=== PATIENT | female | born 1990 | race Two or more races ===

== ENCOUNTER 2020-04-14 22:11 | Emergency (ER) | payer OTHER, SELFPAY ==
[2020-04-14 22:17] VITALS: BP 105/59; PULSE 67; RESP 16; TEMP 36.7; O2SAT 100; BMI 21.4
--- NOTE | 2020-04-14 22:51 | ED.SKABFB ---
HPI - Skin/Abscess/Foreign Bdy General Chief complaint: Skin/Abscess/Foreign Body Stated complaint: abscess Time Seen by Provider: 04/14/20 22:26 Source: patient Mode of arrival: ambulatory History of Present Illness HPI narrative: 30-year-old female with a past medical history of hypertension presenting to ED complaining of rectal pain since last night. Patient reports believes she has a hemorrhoid, denies history of hemorrhoids. denies fever, nausea/vomiting, diarrhea, constipation, rectal bleeding Related Data Previous Rx's Medication Instructions Recorded hydrocortisone [Anti-Itch (HC)] 1 applic TOPICAL BID PRN #28.35 g 04/14/20 lidocaine 1 applic TOPICAL BID PRN #5 g 04/14/20 Allergies Allergy/AdvReac Type Severity Reaction Status Date / Time No Known Allergies Allergy Verified 04/14/20 22:19 [No Known Allergies*] Review of Systems Review of Systems: Constitutional: No Fever, No Chills Gastrointestinal: No Nausea, No Vomiting, No Diarrhea, No Constipation, No Abdominal pain, +rectal pain Yes all other systems are reviewed and are negative [facility] Past Medical History Attestation statement: The following information was validated with the patient. Source: nursing notes reviewed Medical History (Updated 04/15/20 @ 00:00 by Background Daemon) HTN (hypertension) Social History Social History Advance Directives: No Physical Exam Vital Signs: Vital Signs: Vital Signs Temp Pulse Resp BP Pulse Ox 04/14/20 22:17 98.0 F 67 16 105/59 L 100 Body Mass Index 21.4 Const: General: cooperative and healthy appearing Orientation/consciousness: patient oriented x3 Limitations: no limitations HENMT: Head: Yes normal to inspection Ears: hearing grossly normal bilaterally General nose exam: Normal external nose present Face and sinus: Yes normal facial exam Eyes: General: appearance normal, both eyes and all related structures EOM: EOMs intact bilaterally Neck: Neck: Yes normal visual inspection Resp: Effort & Inspection: normal respiratory effort : Other: + inflamed external hemorrhoid noted at 11 o'clock region. No evidence of thrombosis. Skin: Rashes: no rashes Wounds: no wounds Neuro: General: patient oriented x3 Gait exam (Neuro): Normal gait present Extrem: General: Yes normal to inspection MDM - Skin/Abscess/Foreign Bdy MDM Narrative Medical decision making narrative: Exam consistent with hemorrhoid. No evidence of thrombosis at this time. No active infection. Discharge Plan Discharge Clinical Impression: Hemorrhoid Patient Disposition: Home, Self-Care Instructions: Hemorrhoids (ED) Additional Instructions: you have a hemorrhoid Apply hydrocortisone as prescribed, it is a topical steroid In addition topical lidocaine as a numbing agent, apply as needed Practice sitz baths at home. application of moist heat to the perianal area can lower the internal sphincter and anal canal pressures Patients should ingest 20 to 30 g of insoluble fiber per day Patients should refrain from straining or lingering (eg, reading) on the toilet. Patients should have regular physical exercise. If possible, patients should avoid medications that can cause constipation Patients should also limit their intake of fatty foods and alcohol, which can exacerbate constipation follow-up with your primary care doctor Prescriptions: New hydrocortisone [Anti-Itch (HC)] 1 % ointment 1 applic topical BID PRN (Reason: itching) Qty: 28.35 RF: 0 lidocaine 4 % cream 1 applic topical BID PRN (Reason: pain) Qty: 5 RF: 0 Referrals: Physician,Unknown [Primary Care Provider] - 2 days ( your primary care doctor) Interventions: ED Discharge Assessment Last Done: 04/14/20 23:03 Discharge Date/Time: 04/14/20 23:07
== END 2020-04-14 23:07 | disposition home or self-care (01) ==
PROVIDERS: Emergency Provider Internal Medicine
DX: K64.9 Unspecified hemorrhoids (principal); Z79.899 Other long term (current) drug therapy
CPT/HCPCS: 99283

== ENCOUNTER 2020-08-12 08:36 | Emergency (ER) | payer OTHER, SELFPAY ==
[2020-08-12 08:48] VITALS: BP 155/92; PULSE 90; RESP 18; TEMP 37.1; O2SAT 99; BMI 30.9
--- NOTE | 2020-08-12 10:18 | ED.URI ---
HPI - URI/Sore Throat General Chief Complaint: Upper Respiratory Symptoms Stated Complaint: covid symptoms Time Seen by Provider: 08/12/20 09:14 Source: patient Mode of arrival: ambulatory History of Present Illness HPI Narrative: 30-year-old female with a past medical history of hypertension presenting to the ED complaining of nasal congestion and loss of taste x2 days, requesting COVID-19 testing. Reports boyfriend tested positive for COVID-19 today. Denies cough, chest pain, shortness breath, fever, chills, abdominal pain, diarrhea, travel Related Data Previous Rx's Medication Instructions Recorded hydrocortisone [Anti-Itch (HC)] 1 applic TOPICAL BID PRN #28.35 g 04/14/20 lidocaine 1 applic TOPICAL BID PRN #5 g 04/14/20 Allergies Allergy/AdvReac Type Severity Reaction Status Date / Time No Known Allergies Allergy Verified 08/12/20 08:51 [No Known Allergies*] Review of Systems Review of Systems: Constitutional: No Fever, No Chills ENT/Mouth: No Ear Pain, + Nasal Congestion, No sore throat, No Rhinorrhea Cardiovascular: No Chest Pain, No SOB Respiratory: No Cough, No Sputum, No Wheezing Gastrointestinal: No Nausea, No Vomiting, No Diarrhea Musculoskeletal: No Myalgias Skin: No Skin Lesions, No rash Yes all other systems are reviewed and are negative [facility] [place] Past Medical History Attestation statement: The following information was validated with the patient. Medical History (Updated 08/12/20 @ 11:51 by MADYSON Matthews) HTN (hypertension) Social History Social History Advance Directives: No Advance Directives Information Provided: No Physical Exam Vital Signs: Vital Signs: Last Vital Signs Temp 98.7 F 08/12/20 08:48 Pulse 90 08/12/20 08:48 Resp 18 08/12/20 08:48 BP 155/92 H 08/12/20 08:48 Pulse Ox 99 08/12/20 08:48 Body Mass Index 30.9 Const: General: cooperative, healthy appearing, comfortable and no acute distress Orientation/consciousness: patient oriented x3 Limitations: no limitations HENMT: Head: Yes normal to inspection Ears: hearing grossly normal bilaterally General nose exam: Normal external nose present Face and sinus: Yes normal facial exam Eyes: General: appearance normal, both eyes and all related structures EOM: EOMs intact bilaterally Neck: Neck: Yes normal visual inspection and Yes no meningeal signs Resp: Effort & Inspection: normal respiratory effort Auscultation: clear to auscultation bilaterally, no rales, no rhonchi and no wheezes Cardio: Rate: regular rate Heart sounds: S1 normal heart sound present and S2 normal heart sound present Skin: Rashes: no rashes Wounds: no wounds Neuro: General: patient oriented x3 and no meningeal signs Gait exam (Neuro): Normal gait present Extrem: General: Yes normal to inspection Course Course Course Narrative: -COVID-19 positive MDM - URI/Sore Throat MDM Narrative Medical decision making narrative: On exam VSS, NAD/well-appearing, nontoxic, lungs CTA. Concern for viral syndrome/COVID-19. Low concern for PE/ACS, or pneumonia. Plan: COVID-19 testing Differential Diagnosis Differential diagnosis: Likely upper respiratory infection Medical Records Attestation: I reviewed the patient's medical records. Lab Data Labs: Lab Results 08/12/20 Range/Units 09:34 Coronavirus (PCR) POSITIVE A (Negative) Influenza Type A (PCR) NEGATIVE (Negative) Influenza Type B (PCR) NEGATIVE (Negative) RSV RNA Qual (PCR) NEGATIVE (Negative) Discharge Plan Discharge Clinical Impression: COVID-19 Patient Disposition: Home, Self-Care Instructions: COVID-19 (Coronavirus Disease 2019) (ED) Additional Instructions: Make sure you are staying hydrated at home. Take Tylenol and Motrin for fever, and body aches. Call your doctor At this time you will be okay for discharge. Please plan for self quarantine for up to 14 days. Do not expose yourself to others. You may not go to work Please continue to follow cold instructions and wash your hands frequently. You may take Tylenol as directed on the bottle for pain or fever. CDC Guidelines for home isolation: - Stay away from others - WEAR A MASK if you are sick AND STAY HOME - Cover your mouth and nose with a tissue when you cough or sneeze. Dispose of tissues in a lined trash can and wash your hands immediately with soap and water for at least 20 seconds. If soap and water are not available, clean hands with alcohol-based hand deep fryer assembler that contains at least 60% alcohol. - Clean your hands often with soap and water for at least 20 seconds - Avoid touching your eyes, nose and mouth with unwashed hands - Do not share dishes, drinking glasses, cups, eating utensils, towels, or bedding with other people in your home. After using these items, wash them thoroughly with soap and water or put in the social services aide. - Clean high-touch surfaces in your isolation area ( sick room and bathroom) every day; let a caregiver clean and disinfect high-touch surfaces in other areas of the home. Clean the area or item with soap and water or another detergent if it is dirty. Then, use a household disinfectant. - Limit contact with pets and animals: If you must care for a pet, wash your hands before and after interacting with them) Prescriptions: No Action hydrocortisone [Anti-Itch (HC)] 1 % ointment 1 applic topical BID PRN (Reason: itching) Qty: 28.35 RF: 0 lidocaine 4 % cream 1 applic topical BID PRN (Reason: pain) Qty: 5 RF: 0 Referrals: Physician,Unknown [Primary Care Provider] - 2 days Stand Alone Forms: Work/School Release
[2020-08-12 11:08] LABS: Influenza A PCR NEGATIVE (Negative); Influenza B PCR NEGATIVE (Negative); Resp Syncy Virus RNA Qual PCR NEGATIVE (Negative); SARS COV2 PCR INHOUSE POSITIVE (Negative)
[2020-08-12 12:00] VITALS: RESP 16
== END 2020-08-12 12:18 | disposition home or self-care (01) ==
PROVIDERS: Physician Assistant; Emergency Provider Emergency Medicine Emergency Medical Services
DX: U07.1 COVID-19 (principal); R09.81 Nasal congestion
CPT/HCPCS: 0241U; 36415; 99283

== ENCOUNTER 2020-11-15 22:34 | Emergency (ER) | payer OTHER, SELFPAY ==
--- NOTE | ~2020-11-15 | CT_ITS ---
EXAMINATION: CT ABDOMEN AND PELVIS WITH CONTRAST CLINICAL INFORMATION: Abdominal pain, nausea, vomiting COMPARISON: 01/05/2019 TECHNIQUE: Multidetector volumetric images were obtained from the superior aspect of the liver through the pubic symphysis following administration 85 mL of Omnipaque 350 intravenous contrast. Sagittal and coronal reformatted images were obtained on the technologist's workstation. Oral contrast: No This CT examination was performed using dose optimization techniques as appropriate, variously including the following: *Automated exposure control *Adjustment of mA and/or kV according to patient size (this includes techniques or standardized protocols for targeted exams where dose is matched to indication/reason for exam; i.e. extremities or head) *Use of iterative reconstruction technique DLP: 623 mGy-cm FINDINGS: LUNG BASES: The visualized lung bases demonstrate mild dependent atelectasis. LIVER, GALLBLADDER, AND BILIARY TREE: The liver is normal in size, shape, and attenuation. Small hypodensity in the lateral left hepatic lobe favors a cyst. No biliary ductal dilatation is present. The gallbladder is unremarkable with no evidence of radiopaque gallstones, gallbladder wall thickening, or obvious pericholecystic inflammatory changes. PANCREAS: Unremarkable. SPLEEN: Unremarkable. ADRENAL GLANDS: Unremarkable. KIDNEYS AND URETERS: The kidneys are normal in size, shape, and attenuation. No hydronephrosis, hydroureter, or obstructing calculi seen. No perinephric stranding. BLADDER: Unremarkable. GASTROINTESTINAL TRACT: The small and large bowel are unremarkable. The appendix is unremarkable. No free fluid or free air is seen. ABDOMINAL WALL: No significant hernia is appreciated. LYMPH NODES: Normal. VASCULAR: Unremarkable. PELVIC VISCERA: Unremarkable. OSSEOUS STRUCTURES: Unremarkable. CT/CT abdomen pelvis w con IMPRESSION: No acute findings identified in the abdomen/pelvis.
[2020-11-15 23:03] VITALS: BP 152/84; PULSE 63; RESP 18; TEMP 36.7; O2SAT 100; BMI 26.6
--- NOTE | 2020-11-16 00:35 | ED_ITS ---
HPI - Nausea/Vomiting/Diarrhea General Chief complaint: Headache Stated complaint: vomiting Time Seen by Provider: 11/15/20 23:29 Source: patient Mode of arrival: ambulatory History of Present Illness HPI Narrative: This is a 30-year-old female without significant past medical history who presents with multiple episodes of nausea and vomiting since 5:00 p.m. after patient ate incompletely cooked chocolate cake. Patient states that she has done this many times before it and never had similar symptoms. She does note that her children also had some of the cake, but states that when she vomited the cake was all that was coming out. She denies any associated fevers, chills, back pain, abdominal pain, urinary pain/burning/frequency. She does endorse that she had some left-sided flank pain yesterday but stated that it completely resolved. Patient denies cigarette or marijuana smoking and denies any alcohol use. Related Data Previous Rx's Medication Instructions Recorded hydrocortisone [Anti-Itch (HC)] 1 applic TOPICAL BID PRN #28.35 g 04/14/20 lidocaine 1 applic TOPICAL BID PRN #5 g 04/14/20 Allergies Allergy/AdvReac Type Severity Reaction Status Date / Time No Known Allergies Allergy Verified 11/15/20 23:03 [No Known Allergies*] Review of Systems Review of Systems: Pertinent positives and negatives as stated in HPI 10 point review of systems otherwise negative. PMFSH Past Medical History Source: nursing notes reviewed Medical History HTN (hypertension) Pre-eclampsia Social History Social History Advance Directives: No Advance Directives Information Provided: No Patient : No Physical Exam Vital Signs: Vital Signs: Last Vital Signs Temp 98.1 F 11/15/20 23:03 Pulse 63 11/15/20 23:03 Resp 18 11/15/20 23:03 BP 152/84 H 11/15/20 23:03 Pulse Ox 100 11/15/20 23:03 Body Mass Index 26.6 VITAL SIGNS: Reviewed. GENERAL: Well developed, well nourished, in no acute distress. HEAD: Normocephalic/atraumatic EYES: PERRLA, EOMI OROPHARYNX: no oral lesions noted, posterior pharynx clear NECK: Supple, no adenopathy LUNGS: Normal breath sounds. No adventitious sounds or accessory muscle use. SpO2<100> CARDIOVASCULAR: Regular rate and rhythm without noted murmurs ABDOMEN: Soft, mild tenderness on palpation without rebound, non-distended with bowel sounds. NEUROLOGIC: Alert and oriented x 4. Course Course Course Narrative: 30-year-old female with history and clinical presentation suggestive of food poisoning, cholecystitis, less likely pancreatitis or appendicitis. Review of all investigations negative for acute findings though there is a noted leukocytosis this is felt to be reactive/stress as patient is afebrile and has had complete resolution of her symptoms on re-evaluation. Patient states feeling much better and endorses that she is ready to go home. MDM - Nausea/Vomiting/Diarrhea Lab Data Result diagrams: 11/16/20 01:13 11/16/20 01:13 Labs: Lab Results 11/16/20 11/16/20 11/16/20 Range/Units 01:02 01:02 01:13 WBC 13.7 H (4.8-10.8) X10*3/uL RBC 4.91 (4.20-5.50) X10*6/uL Hgb 11.8 L (12.0-16.0) g/dl Hct 37.3 (37-47) % MCV 76.0 L (80-98) fL MCH 24.0 L (27.0-33.0) pg MCHC 31.6 (31.0-35.0) g/dl RDW 16.1 H (11.0-16.0) % Plt Count 415 H (160-400) X10*3/uL MPV 9.3 L (9.4-12.3) fL Immature Gran % (Auto) 0.2 (0.0-0.4) % Neut % (Auto) 79.0 H (45-73) % Lymph % (Auto) 13.2 L (20-40) % Edwards % (Auto) 5.8 (2-11) % Eos % (Auto) 1.7 (0-4) % Baso % (Auto) 0.1 (0-2) % Lymph # (Auto) 1.8 (1.2-4.9) X10*3/uL Edwards # (Auto) 0.8 (0.1-1.2) X10*3/uL Eos # (Auto) 0.2 (0.0-0.4) X10*3/uL Baso # (Auto) 0.0 (0.0-0.2) X10*3/uL Abs Immat Gran (auto) 0.03 (0.00-0.03) X10*3/uL Absolute Neuts (auto) 10.8 H (2.0-8.3) X10*3/uL Absolute Nucleated RBC 0.000 (0.0-0.012) X10*3/uL Nucleated RBC % (auto) 0.0 (0.0-0.2) /100WBC Sodium (135-145) mmol/L Potassium (3.3-5.1) mmol/L Chloride (96-108) mmol/L Carbon Dioxide (22-29) mmol/L Anion Gap (12-20) BUN (9-16) mg/dL Creatinine (0.5-1.4) mg/dL Estim Creat Clear Calc Estimated GFR Random Glucose (60-115) mg/dL Calcium (8.4-10.2) mg/dL Total Bilirubin (0.0-1.0) mg/dL AST (5-31) U/L ALT (0-31) U/L Alkaline Phosphatase (39-117) U/L Total Protein (6.5-8.0) g/dL Albumin (3.5-5.0) g/dL Urine Color YELLOW Urine Appearance HAZY Urine pH 7.0 (5.0-8.0) Ur Specific Milton 1.015 (1.005-1.025) Urine Protein 1+ H (NEG-TRACE) MG/DL Urine Glucose (UA) NEG (NEG) MG/DL Urine Ketones NEG (NEG) MG/DL Urine Blood NEG (NEG) Urine Nitrite NEG (NEG) Ur Leukocyte Esterase NEG (NEG) Urine RBC 0-2 (0) /HPF Urine WBC 5-9 H (0-4) /HPF Ur Squamous Epith Cells 2+ /LPF Urine Bacteria 3+ /LPF Urine Mucus 1+ /LPF Urine Test NEGATIVE (NEGATIVE) 11/16/20 Range/Units 01:13 WBC (4.8-10.8) X10*3/uL RBC (4.20-5.50) X10*6/uL Hgb (12.0-16.0) g/dl Hct (37-47) % MCV (80-98) fL MCH (27.0-33.0) pg MCHC (31.0-35.0) g/dl RDW (11.0-16.0) % Plt Count (160-400) X10*3/uL MPV (9.4-12.3) fL Immature Gran % (Auto) (0.0-0.4) % Neut % (Auto) (45-73) % Lymph % (Auto) (20-40) % Edwards % (Auto) (2-11) % Eos % (Auto) (0-4) % Baso % (Auto) (0-2) % Lymph # (Auto) (1.2-4.9) X10*3/uL Edwards # (Auto) (0.1-1.2) X10*3/uL Eos # (Auto) (0.0-0.4) X10*3/uL Baso # (Auto) (0.0-0.2) X10*3/uL Abs Immat Gran (auto) (0.00-0.03) X10*3/uL Absolute Neuts (auto) (2.0-8.3) X10*3/uL Absolute Nucleated RBC (0.0-0.012) X10*3/uL Nucleated RBC % (auto) (0.0-0.2) /100WBC Sodium 140 (135-145) mmol/L Potassium 4.7 (3.3-5.1) mmol/L Chloride 105 (96-108) mmol/L Carbon Dioxide 27 (22-29) mmol/L Anion Gap 13 (12-20) BUN 9 (9-16) mg/dL Creatinine 0.82 (0.5-1.4) mg/dL Estim Creat Clear Calc 97.3 Estimated GFR > 60 Random Glucose 97 (60-115) mg/dL Calcium 9.7 (8.4-10.2) mg/dL Total Bilirubin 0.3 (0.0-1.0) mg/dL AST 23 (5-31) U/L ALT 41 H (0-31) U/L Alkaline Phosphatase 121 H (39-117) U/L Total Protein 7.6 (6.5-8.0) g/dL Albumin 4.5 (3.5-5.0) g/dL Urine Color Urine Appearance Urine pH (5.0-8.0) Ur Specific Milton (1.005-1.025) Urine Protein (NEG-TRACE) MG/DL Urine Glucose (UA) (NEG) MG/DL Urine Ketones (NEG) MG/DL Urine Blood (NEG) Urine Nitrite (NEG) Ur Leukocyte Esterase (NEG) Urine RBC (0) /HPF Urine WBC (0-4) /HPF Ur Squamous Epith Cells /LPF Urine Bacteria /LPF Urine Mucus /LPF Urine Test (NEGATIVE) Discharge Plan Discharge Clinical Impression: Food poisoning Patient Disposition: Home, Self-Care Instructions: Food Poisoning (ED) Additional Instructions: 1. Continue stay well hydrated especially with water. 2. Follow-up with your primary care provider in the next 2-3 days for re- evaluation. Return to the ER for any acute worsening of your symptoms. Prescriptions: No Action hydrocortisone [Anti-Itch (HC)] 1 % ointment 1 applic topical BID PRN (Reason: itching) Qty: 28.35 RF: 0 lidocaine 4 % cream 1 applic topical BID PRN (Reason: pain) Qty: 5 RF: 0 Referrals: Harmony Caceres MD [Primary Care Provider] - 2 days
[2020-11-16 01:17] LABS: Basophils Percent Auto 0.1 % (0-2); Eosinophils Absolute Auto 0.2 X10*3/uL (0.0-0.4); Eosinophils Percent Auto 1.7 % (0-4); Hematocrit 37.3 % (37-47); Hemoglobin 11.8 g/dl (12.0-16.0); Imm Gran Abs Auto 0.03 X10*3/uL (0.00-0.03); Imm Gran Pct Auto 0.2 % (0.0-0.4); Lymphocytes Absolute Auto 1.8 X10*3/uL (1.2-4.9); Lymphocytes Percent Auto 13.2 % (20-40); MANUAL DIFF FLAG NO; Mean Corpuscular HGB Conc 31.6 g/dl (31.0-35.0); Mean Platelet Volume 9.3 fL (9.4-12.3); Monocytes Absolute Auto 0.8 X10*3/uL (0.1-1.2); Monocytes Percent Auto 5.8 % (2-11); Neutrophils Absolute Auto 10.8 X10*3/uL (2.0-8.3); Platelet Count 415 X10*3/uL (160-400); Red Blood Count 4.91 X10*6/uL (4.20-5.50); Red Cell Distribution Width 16.1 % (11.0-16.0); White Blood Count 13.7 X10*3/uL (4.8-10.8)
[2020-11-16 01:20] VITALS: BP 123/78; PULSE 89; RESP 20; TEMP 37.2; O2SAT 98
[2020-11-16 01:22] LABS: Glucose Urine UA NEG (NEG); Leukocyte Esterase Urine NEG (NEG); Nitrite Urine NEG (NEG); Specific Gravity - Urine 1.015 (1.005-1.025); Urine Blood NEG (NEG); Urine Ketones NEG (NEG); Urine Protein 1+ MG/DL (NEG-TRACE)
[2020-11-16] MEDS: ondansetron HCL 4 MG/2 ML VIAL IVPUSH (01:23)
[2020-11-16] MEDS: 0.9 % Sodium Chloride 1,000 ML 999 ML IV (01:23)
[2020-11-16 01:24] LABS: Appearance Urine HAZY; Color Urine YELLOW
[2020-11-16 01:33] LABS: Bacteria Urine 3+ /LPF; Mucus Urine 1+ /LPF; RBC Urine 0-2 /HPF (0); Squamous Epithelial Cell Urine 2+ /LPF; UACC CULT YES; UPreg QC Valid YES; Urine Pregnancy NEGATIVE (NEGATIVE)
[2020-11-16 01:56] LABS: Alanine Aminotransferase 41 U/L (0-31); Albumin Level 4.5 g/dL (3.5-5.0); Alkaline Phosphatase 121 U/L (39-117); Anion Gap 13 (12-20); Aspartate Amino Transferase 23 U/L (5-31); Bilirubin Total 0.3 mg/dL (0.0-1.0); Blood Urea Nitrogen 9 mg/dL (9-16); Calcium 9.7 mg/dL (8.4-10.2); Carbon Dioxide 27 mmol/L (22-29); Chloride 105 mmol/L (96-108); Creatinine Clr Calc Pharmacy 97.3; Estimated Glomerular Filt Rate > 60; Glucose Random 97 mg/dL (60-115); Potassium 4.7 mmol/L (3.3-5.1); Sodium 140 mmol/L (135-145); Total Protein 7.6 g/dL (6.5-8.0)
[2020-11-16] MEDS: iohexoL 350 MG/ML 100 ML INFUS..BTL 85 ML IV (03:31)
== END 2020-11-16 05:00 | disposition home or self-care (01) ==
PROVIDERS: Emergency Provider Student in an Organized Health Care Education/Training Program; PCP Internal Medicine
DX: A05.9 Bacterial foodborne intoxication, unspecified (principal); R11.2 Nausea with vomiting, unspecified; I10 Essential (primary) hypertension; Z86.16 Personal history of COVID-19
CPT/HCPCS: 36415; 74177; 80053; 81001; 81025; 85025; 87086; 87088; 87186; 96361; 96374; 99283; 99284; J2405; Q9967

== ENCOUNTER 2021-04-04 21:32 | Emergency (ER) | payer OTHER, SELFPAY ==
[2021-04-04 22:14] VITALS: BP 118/77; PULSE 59; RESP 16; TEMP 37.3; O2SAT 98; BMI 31.7
--- NOTE | 2021-04-04 22:51 | ED_ITS ---
HPI - Dental/Oral General Chief complaint: Dental/Oral Stated complaint: Dental Pain Time Seen by Provider: 04/04/21 22:44 Source: patient Mode of arrival: ambulatory Limitations: no limitations History of Present Illness HPI Narrative: Patient comes emergency room complaining of dental pain. Patient states that yesterday she had tooth extraction in the left maxillary side. Patient states that she was prescribed 800 mg of ibuprofen and 500 mg of Tylenol. Patient is at her max dose today. Patient is also currently taking amoxicillin which was prescribed by her dentist. Patient states she cannot take the pain. Patient denies fever, chills Related Data Previous Rx's Medication Instructions Recorded hydrocortisone 1 % topical 1 applic TOPICAL BID PRN #28.35 g 04/14/20 ointment (Anti-Itch (hydrocortisone)) lidocaine 4 % topical cream 1 applic TOPICAL BID PRN #5 g 04/14/20 nitrofurantoin 100 mg PO Q12H 5 Days #10 cap 11/20/20 monohydrate/macrocrystals 100 mg capsule (Macrobid) oxycodone 5 mg tablet 5 mg PO TID PRN #7 tab 04/04/21 Allergies Allergy/AdvReac Type Severity Reaction Status Date / Time No Known Allergies Allergy Verified 11/15/20 23:03 [No Known Allergies*] Review of Systems Review of Systems: Constitutional : No Weight loss, No Fever, No Chills, No Night Sweats, No Fatigue, No Malaise ENT/Mouth : No Hearing loss, No Ear Pain, No Nasal Congestion, No Sinus Pain, No Hoarseness, No sore throat, No Rhinorrhea, No Swallowing Difficulty, complaining of dental pain of other side left side Eyes: No Eye Pain, No Swelling, No Redness, No Foreign Body, No Discharge, No Vision Changes Cardiovascular : No Chest Pain, No SOB, No Dyspnea on Exertion, No Orthopnea, No Edema, No Palpitations Respiratory : No Cough, No Sputum, No Wheezing, No Smoke Exposure, No Dyspnea Gastrointestinal : No Nausea, No Vomiting, No Diarrhea, No Constipation, No abdominal Pain, No Hematochezia, No Melena Genitourinary : no irregular bleeding, No Dysuria, No Urinary Frequency, No Hematuria, No Urinary Incontinence, No Urgency, No Flank Pain, No Urinary Flow Changes, No Hesitancy Musculoskeletal : No joint pain, No Myalgias, No Joint Swelling Skin : No Skin Lesions, No rash Neuro : No Weakness, No Numbness, No Paresthesias, No Loss of Consciousness, No Dizziness, No Headache Psych : No Anxiety/Panic, No Depression, No SI/HI/AH/VH, No Social Issues, Heme/Lymph: No Bruising, No Bleeding,No Lymphadenopathy Endocrine : No Polyuria, No Polydipsia, No Temperature Intolerance [facility] Past Medical History Medical History HTN (hypertension) Pre-eclampsia Social History Social History Advance Directives: No Advance Directives Information Provided: No Patient : No Physical Exam Vital Signs: Vital Signs: Last Vital Signs Temp 99.1 F 04/04/21 22:14 Pulse 59 04/04/21 22:14 Resp 16 04/04/21 22:14 BP 118/77 04/04/21 22:14 Pulse Ox 98 04/04/21 22:14 Body Mass Index 31.7 Const: Other: Appearance: Alert. Oriented X3. No acute distress. Eyes: Pupils equal, round and reactive to light. ENT: Pharynx normal. Patient does not have dry sockets, no pus drainage, no abscesses, patient does have overall poor dentition Neck: Normal inspection. Neck supple. No lymph nodes noted. No crepitus CVS: Normal heart rate and rhythm. Pulses normal. Normal S1 and S2 Respiratory: No respiratory distress. Breath sounds normal. No Wheezing. No rales Abdomen: Soft and nontender. No rigidity. No distention. good BS x4 Skin: Skin warm and dry. Normal skin color. Normal skin turgor. Extremities: No lower extremity edema. No lower extremity edema. No Lacerations. No Rash Neuro: Oriented X 3. No motor deficit. No sensory deficit. Moving all extermities. No slurred speech. Course Course Course Narrative: Patient is already on antibiotics, patient already had maximum dose of ibuprofen, this time, I offered to the patient stronger pain medication, since she has had high dose of ibuprofen, will not be giving Toradol. Patient instructed to keep taking her antibiotics as prescribed, pain medications and to the patient's pharmacy Discharge Plan Discharge Clinical Impression: Pain, dental Patient Disposition: Home, Self-Care Instructions: Toothache (ED) Additional Instructions: Please follow-up with your primary care physician tomorrow. If you have any worsening or new symptoms, please return to the emergency room or call 911 Prescriptions: New oxycodone 5 mg tablet 5 mg PO TID PRN (Reason: pain) Qty: 7 RF: 0 No Action nitrofurantoin monohyd/m-cryst [Macrobid] 100 mg capsule 100 mg PO Q12H 5 Days Qty: 10 RF: 0 hydrocortisone [Anti-Itch (HC)] 1 % ointment 1 applic topical BID PRN (Reason: itching) Qty: 28.35 RF: 0 lidocaine 4 % cream 1 applic topical BID PRN (Reason: pain) Qty: 5 RF: 0
[2021-04-04] MEDS: oxyCODONE HCl Immed Release 5 MG TABLET PO (22:58)
[2021-04-04 23:28] VITALS: BP 116/78; PULSE 68; RESP 16; O2SAT 99
== END 2021-04-04 23:31 | disposition home or self-care (01) ==
PROVIDERS: Emergency Provider Emergency Medicine; PCP Internal Medicine
DX: K08.89 Other specified disorders of teeth and supporting structures (principal); Z79.899 Other long term (current) drug therapy
CPT/HCPCS: 99283

== ENCOUNTER 2021-04-15 17:39 | Emergency (ER) | payer OTHER, SELFPAY ==
[2021-04-15 18:04] VITALS: BP 144/76; PULSE 59; RESP 17; TEMP 37; O2SAT 100; BMI 30.4
--- NOTE | 2021-04-15 18:04 | ED.DENTAL ---
HPI - Dental/Oral General Chief complaint: Dental/Oral Stated complaint: dental pain Time Seen by Provider: 04/15/21 17:52 Source: patient Mode of arrival: ambulatory Limitations: no limitations History of Present Illness HPI Narrative: 31-year-old female came in for evaluation of mouth pain. Patient status post 6 teeth extraction today by her dentist as a part of extracting all of her teeth, dentist prescribed 800 mg of ibuprofen which is not relieving the pain for the patient, patient also not receiving antibiotics post extraction. No other complaints. Related Data Previous Rx's Medication Instructions Recorded hydrocortisone 1 % topical 1 applic TOPICAL BID PRN #28.35 g 04/14/20 ointment (Anti-Itch (hydrocortisone)) lidocaine 4 % topical cream 1 applic TOPICAL BID PRN #5 g 04/14/20 nitrofurantoin 100 mg PO Q12H 5 Days #10 cap 11/20/20 monohydrate/macrocrystals 100 mg capsule (Macrobid) oxycodone 5 mg tablet 5 mg PO TID PRN #7 tab 04/04/21 amoxicillin 500 mg capsule 500 mg PO BID #14 cap 04/15/21 oxycodone-acetaminophen 5 mg-325 1 tab PO TID PRN #5 tab 04/15/21 mg tablet (Percocet) Allergies Allergy/AdvReac Type Severity Reaction Status Date / Time No Known Allergies Allergy Verified 11/15/20 23:03 [No Known Allergies*] Review of Systems Review of Systems: All other systems are reviewed and are negative Constitutional: Reports as per HPI and Reports no additional constitutional complaints Eyes: Reports as per HPI and Reports no additional eye complaints Reports system reviewed and no additional complaints, except as documented Cardiovascular: Reports as per HPI and Reports no additional cardiovascular complaints Respiratory: Reports as per HPI and Reports no additional respiratory complaints Gastrointestinal: Reports as per HPI and Reports no additional gastrointestinal complaints Genitourinary: Reports no additional female genitourinary complaints Musculoskeletal: Reports no additional musculoskeletal complaints Skin/Breast: Reports system reviewed and no additional complaints, except as docu Psychiatric: Reports no additional psychiatric complaints Endocrine: Reports no additional endocrine complaints Hematologic/Lymphatic: Reports no additional hematologic/lymphatic complaints Allergic/Immunologic: Reports no additional allergic/immunologic complaints Reports system reviewed and no additional complaints, except as documented and Reports Abnormal speech present [facility] Past Medical History Medical History HTN (hypertension) Pre-eclampsia Social History Social History Advance Directives: No Advance Directives Information Provided: No Patient : No Physical Exam Vital Signs: Vital Signs: Vital signs have been reviewed as appeared to be correct. Blood pressure normal. Heart rate normal. Respiration rate normal. Temperature normal. Oxygen saturation normal. Appearance: Alert. Oriented X3. No acute distress. Head: Normal external exam. Normocephalic. Atraumatic. No Falk signs noted. No raccoon eyes noted. Dental exam: Multiple dental extraction, no gum swelling, no fluctuation. Gum is tender to touch. Eyes: PERRLA. EOMI. Conjunctiva and sclera normal. Eyelids normal. ENT: TM's Normal. Pharynx normal. Uvula midline. Moist mucous membranes. No trismus noted. No drooling noted. No muffled voice noted. Neck: Normal inspection. Neck supple. FROM. No adenopathy. Thyroid Normal. No meningeal signs. No neck mass noted. CVS: Normal heart rate and rhythm. Heart sound normal. No murmurs noted. Pulses normal throughout. Respiratory: No respiratory distress. Painless inspiration. Breath sounds normal. No wheezes/rales/rhonchi noted. Chest nontender. No accessory muscle usage noted or decreased air movement noted. Abdomen: Soft and nontender. Bowel sounds normal in all 4 quadrants. No distention noted. No organomegaly noted. No visible injury noted. Back: No CVA tenderness. Full range of motion noted. Skin: Skin warm and dry. Normal skin color. Normal skin turgor. No rashes/lesions/lacerations noted. Extremities: No lower extremity edema. Extremities exhibit normal range of motion. Extremities nontender. Neuro: Oriented X 3. Cranial nerve exam: II-XII are grossly intact No motor deficit. No sensory deficit. Reflexes normal. Course Course Course Narrative: Will start the patient on amoxicillin/stronger analgesia/follow-up with her dentist. Discharge Plan Discharge Clinical Impression: Pain, dental Patient Disposition: Home, Self-Care Instructions: Toothache (ED) Additional Instructions: Follow-up with your dentist in 1-2 days. Prescriptions: New amoxicillin 500 mg capsule 500 mg PO BID Qty: 14 RF: 0 oxycodone-acetaminophen [Percocet] 5-325 mg tablet 1 tab PO TID PRN (Reason: pain) Qty: 5 RF: 0 No Action nitrofurantoin monohyd/m-cryst [Macrobid] 100 mg capsule 100 mg PO Q12H 5 Days Qty: 10 RF: 0 hydrocortisone [Anti-Itch (HC)] 1 % ointment 1 applic topical BID PRN (Reason: itching) Qty: 28.35 RF: 0 lidocaine 4 % cream 1 applic topical BID PRN (Reason: pain) Qty: 5 RF: 0 oxycodone 5 mg tablet 5 mg PO TID PRN (Reason: pain) Qty: 7 RF: 0 Referrals: Harmony Caceres MD [Primary Care Provider] - 2 days
[2021-04-15] MEDS: Amoxicillin 500 MG CAPSULE PO (18:34)
[2021-04-15] MEDS: oxyCODONE HCl Immed Release 5 MG TABLET PO (18:34)
== END 2021-04-15 19:12 | disposition home or self-care (01) ==
PROVIDERS: Emergency Provider Emergency Medicine; PCP Internal Medicine
DX: K08.89 Other specified disorders of teeth and supporting structures (principal); I10 Essential (primary) hypertension; Z98.890 Other specified postprocedural states
CPT/HCPCS: 99283

== ENCOUNTER 2021-06-27 16:35 | Emergency (ER) | payer OTHER, SELFPAY ==
[2021-06-27 18:26] VITALS: BP 146/72; PULSE 80; RESP 18; TEMP 36.8; O2SAT 100; BMI 20.5
[2021-06-27] MEDS: Ondansetron ODT 4 MG TAB.RAPDIS TRANSLINGU (18:30)
[2021-06-27 18:53] LABS: Hematocrit 38.1 % (37.0-47.0); Hemoglobin 12.1 g/dl (12.0-16.0); Mean Corpuscular HGB Conc 31.8 g/dl (31.0-35.0); Mean Corpuscular Hemoglobin 24.1 pg (27.0-33.0); Mean Corpuscular Volume 75.9 fL (80.0-98.0); Mean Platelet Volume 9.7 fL (9.4-12.3); Platelet Count 348 X10*3/uL (160-400); Red Blood Count 5.02 X10*6/uL (4.20-5.50); White Blood Count 9.4 X10*3/uL (4.8-10.8)
[2021-06-27 19:02] LABS: Appearance Urine HAZY; Color Urine YELLOW; Glucose Urine UA NEG (NEG); Leukocyte Esterase Urine NEG (NEG); Nitrite Urine POS (NEG); Specific Gravity - Urine >= 1.030 (1.005-1.025); UACC Culture Trigger YES; UPreg QC Valid YES; Urine Blood NEG (NEG); Urine Ketones >=80 MG/DL (NEG); Urine Pregnancy NEGATIVE (NEGATIVE); Urine Protein TRACE MG/DL (NEG-TRACE)
[2021-06-27 19:05] LABS: Anion Gap 14 (12-20); Blood Urea Nitrogen 12 mg/dL (9-16); Calcium 9.7 mg/dL (8.4-10.2); Carbon Dioxide 27 mmol/L (22-29); Chloride 104 mmol/L (96-108); Creatinine Clr Calc Pharmacy 76.8; Estimated Glomerular Filt Rate > 60; Glucose Random 102 mg/dL (60-115); Sodium 141 mmol/L (135-145)
[2021-06-27 19:08] LABS: COVID-19 Test Negative (Negative)
[2021-06-27 19:46] LABS: Bacteria Urine 3+ /LPF; Mucus Urine 1+ /LPF; Squamous Epithelial Cell Urine 1+ /LPF
== END 2021-06-27 20:34 | disposition left against medical advice (07) ==
PROVIDERS: Emergency Provider Emergency Medicine; PCP Internal Medicine
DX: R11.2 Nausea with vomiting, unspecified (principal); R51.9 Headache, unspecified; Z20.822 Contact with and (suspected) exposure to COVID-19; I10 Essential (primary) hypertension
CPT/HCPCS: 80048; 81001; 81003; 81025; 85027; 87086; 87088; 87186; 87635; 99283

== ENCOUNTER 2022-02-17 11:40 | Emergency (ER) | payer OTHER, SELFPAY ==
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
[2022-02-17 11:51] VITALS: BP 114/76; PULSE 67; RESP 18; TEMP 36.8; O2SAT 98; BMI 21.4
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
[2022-02-17 13:39] VITALS: BP 115/57; PULSE 53; RESP 15; TEMP 36.8
[2022-02-17 13:46] LABS: UPreg QC Valid YES; Urine Pregnancy NEGATIVE (NEGATIVE)
== END 2022-02-17 15:15 | disposition home or self-care (01) ==
PROVIDERS: Nurse Practitioner Family; Emergency Provider Emergency Medicine
DX: Z04.1 Encounter for examination and observation following transport accident (principal); R51.9 Headache, unspecified; M54.2 Cervicalgia; R10.9 Unspecified abdominal pain
CPT/HCPCS: 70450; 72125; 81025; 99283; 99284

== ENCOUNTER 2023-03-04 19:20 | Emergency (ER) | payer OTHER, SELFPAY ==
[2023-03-04 19:40] VITALS: BP 140/71; BP 182/80; PULSE 62; PULSE 76; RESP 18; TEMP 36.8; O2SAT 100; BMI 29.5
[2023-03-04] MEDS: ondansetron HCL 4 MG/2 ML VIAL IVPUSH (20:16)
[2023-03-04 20:17] LABS: MANUAL DIFF FLAG NO
[2023-03-04 20:35] LABS: Basophils Percent Auto 0.3 % (0-2); Eosinophils Percent Auto 0.1 % (0-4); Hematocrit 38.5 % (37.0-47.0); Hemoglobin 12.3 g/dl (12.0-16.0); Imm Gran Abs Auto 0.03 X10*3/uL (0.00-0.03); Imm Gran Pct Auto 0.3 % (0.0-0.4); Lymphocytes Absolute Auto 1.2 X10*3/uL (1.2-4.9); Lymphocytes Percent Auto 11.6 % (20-40); Mean Corpuscular HGB Conc 31.9 g/dl (31.0-35.0); Mean Corpuscular Hemoglobin 25.4 pg (27.0-33.0); Mean Corpuscular Volume 79.4 fL (80.0-98.0); Mean Platelet Volume 9.9 fL (9.4-12.3); Monocytes Absolute Auto 0.4 X10*3/uL (0.1-1.2); Monocytes Percent Auto 3.5 % (2-11); Neutrophils Absolute Auto 8.7 x10*3/uL (2.0-8.3); Neutrophils Percent Auto 84.2 % (45-73); Platelet Count 357 X10*3/uL (160-400); Red Blood Count 4.85 X10*6/uL (4.20-5.50); Red Cell Distribution Width 14.1 % (11.0-16.0); White Blood Count 10.3 X10*3/uL (4.8-10.8)
[2023-03-04 20:39] LABS: Alanine Aminotransferase 28 U/L (0-31); Albumin Level 4.2 g/dL (3.5-5.0); Alkaline Phosphatase 91 U/L (39-117); Anion Gap 14 (12-20); Aspartate Amino Transferase 23 U/L (5-31); Bilirubin Direct 0.1 mg/dL (0.0-0.5); Bilirubin Total 0.3 mg/dL (0.0-1.0); Blood Urea Nitrogen 7 mg/dL (9-16); Calcium 9.8 mg/dL (8.4-10.2); Carbon Dioxide 25 mmol/L (22-29); Chloride 103 mmol/L (96-108); Creatinine Clr Calc Pharmacy 111.7; Estimated Glomerular Filt Rate > 60; Glucose Random 115 mg/dL (60-115); Lipase 21 U/L (8-78); Potassium 4.2 mmol/L (3.3-5.1); Sodium 138 mmol/L (135-145); Total Protein 7.5 g/dL (6.5-8.0)
--- NOTE | 2023-03-04 21:19 | ED.GENADULT ---
HPI - General Adult General Chief complaint: Abdominal Pain Stated complaint: abd pain, vomiting Time Seen by Provider: 03/04/23 21:12 Source: patient Mode of arrival: ambulatory Limitations: no limitations History of Present Illness HPI narrative: Patient comes to the emergency room complaining of headache, photophobia, nausea vomiting and abdominal cramping. Patient states it has been about a week since the headache started, nausea vomiting started yesterday. Patient states that she might be but does not know. Patient denies any vaginal bleeding or spotting. Related Data Previous Rx's Medication Instructions Recorded hydrocortisone 1 % topical 1 applic topical BID PRN itching 04/14/20 ointment (Anti-Itch #28.35 grams (hydrocortisone)) lidocaine 4 % topical cream 1 applic topical BID PRN pain #5 04/14/20 grams nitrofurantoin 100 mg PO Q12H 5 days #10 caps 11/20/20 monohydrate/macrocrystals 100 mg capsule (Macrobid) oxycodone 5 mg tablet 5 mg PO TID PRN pain #7 tabs 04/04/21 amoxicillin 500 mg capsule 500 mg PO BID #14 caps 04/15/21 oxycodone-acetaminophen 5 mg-325 1 tab PO TID PRN pain #5 tabs 04/15/21 mg tablet (Percocet) acetaminophen 500 mg capsule 500 mg PO Q6H PRN fever or pain 03/05/23 #20 caps ketorolac 10 mg tablet 10 mg PO BID PRN pain #10 tabs 03/05/23 Allergies Allergy/AdvReac Type Severity Reaction Status Date / Time No Known Allergies Allergy Verified 11/15/20 23:03 [No Known Allergies*] Review of Systems Review of Systems: Constitutional : No Weight loss, No Fever, No Chills, No Night Sweats, No Fatigue, No Malaise ENT/Mouth : No Hearing loss, No Ear Pain, No Nasal Congestion, No Sinus Pain, No Hoarseness, No sore throat, No Rhinorrhea, No Swallowing Difficulty Eyes: No Eye Pain, No Swelling, No Redness, No Foreign Body, No Discharge, No Vision Changes Cardiovascular : No Chest Pain, No SOB, No Dyspnea on Exertion, No Orthopnea, No Edema, No Palpitations Respiratory : No Cough, No Sputum, No Wheezing, No Smoke Exposure, No Dyspnea Gastrointestinal : Complaining of nausea vomiting No Diarrhea, No Constipation, mild abdominal cramping, No significant abdominal Pain, No Hematochezia, No Melena Genitourinary : no irregular bleeding, No Dysuria, No Urinary Frequency, No Hematuria, No Urinary Incontinence, No Urgency, No Flank Pain, No Urinary Flow Changes, No Hesitancy Musculoskeletal : No joint pain, No Myalgias, No Joint Swelling Skin : No Skin Lesions, No rash Neuro : No Weakness, No Numbness, No Paresthesias, No Loss of Consciousness, No Dizziness, complaining of Headache with photophobia Psych : No Anxiety/Panic, No Depression, No SI/HI/AH/VH, No Social Issues, Heme/Lymph: No Bruising, No Bleeding,No Lymphadenopathy Endocrine : No Polyuria, No Polydipsia, No Temperature Intolerance [facility] Past Medical History Medical History (Updated 03/04/23 @ 21:24 by Alyce Guzman MD) Ectopic Pre-eclampsia HTN (hypertension) Social History Social History Alcohol intake: never Smoked in Last 30 Days: No Use of substances other than those prescribed or required for medical reasons: No Advance Directives: No Advance Directives Information Provided: No Physical Exam ED Vital Signs: Vital Signs - 24 hr 03/04/23 19:40 Temperature 98.3 F Pulse Rate 62 Respiratory Rate 18 Blood Pressure 140/71 H Pulse Oximetry 100 Oxygen Delivery Method Room Air BMI result Body Mass Index 29.5 Const Other: Appearance: Alert. Oriented X3. Looks uncomfortable Eyes: Pupils equal, round and reactive to light. ENT: Pharynx normal. Neck: Normal inspection. Neck supple. No lymph nodes noted. No crepitus CVS: Normal heart rate and rhythm. Pulses normal. Normal S1 and S2 Respiratory: No respiratory distress. Breath sounds normal. No Wheezing. No rales Abdomen: Soft and nontender. No rigidity. No distention. Skin: Skin warm and dry. Normal skin color. Normal skin turgor. Extremities: No lower extremity edema. No Lacerations. No Rash Neuro: Oriented X 3. No motor deficit. No sensory deficit. Moving all extremities. No slurred speech. CN 2 through 12 grossly intact Psych: calm, cooperative, normal affect Course Course Course Narrative: -patient receiving p.o. Tylenol, IV fluids, Reglan. test pending, if negative, patient will get Toradol Medications Administered Discontinued Medications Generic Name Dose Route Start Last Admin Trade Name Edgardo PRN Reason Stop Dose Admin Acetaminophen 975 mg 03/04/23 21:19 03/04/23 21:45 Acetaminophen 325 Mg Tablet PO 03/04/23 21:20 975 mg ONCE ONE Administration Diphenhydramine HCl 25 mg 03/04/23 22:11 03/04/23 22:24 Diphenhydramine Hcl 50 Mg/Ml Vial IVPUSH 03/04/23 22:12 25 mg ONCE ONE Administration Sodium Chloride 1,000 mls @ 999 mls/hr 03/04/23 21:19 03/04/23 21:45 Ns IVCONT 03/04/23 22:19 999 mls/hr .Q1H1M ONE Administration Ketorolac Tromethamine 30 mg 03/04/23 21:44 03/04/23 21:51 Ketorolac Tromethamine 30 Mg/Ml Vial IVPUSH 03/04/23 21:45 30 mg ONCE ONE Administration Metoclopramide HCl 10 mg 03/04/23 21:19 03/04/23 21:45 Metoclopramide Hcl 10 Mg/2 Ml Vial IVPUSH 03/04/23 21:20 10 mg ONCE ONE Administration Ondansetron HCl 4 mg 03/04/23 20:13 03/04/23 20:16 Ondansetron Hcl 4 Mg/2 Ml Vial IVPUSH 03/04/23 20:14 4 mg ONCE ONE Administration Medical Decision Making Medical Decision Making [facility] Narrative: -my interpretation of labs, normal white blood cell count, chemistry unremarkable, test negative -patient received IV Toradol, Reglan, Benadryl. IV fluids. Patient states that she feels much better, headache nearly resolved. -patient likely had a migraine headache. Differential Diagnosis Differential Diagnoses: The differential diagnosis associated with the presentation includes (Tension headache, migraine headache, cluster headache, , dehydration) Lab Data [facility] Lab Attestation statement: I reviewed the patient's lab results. 03/04/23 20:13 03/04/23 20:13 Labs: Lab Results 03/04/23 Range/Units 20:13 WBC 10.3 (4.8-10.8) X10*3/uL RBC 4.85 (4.20-5.50) X10*6/uL Hgb 12.3 (12.0-16.0) g/dl Hct 38.5 (37.0-47.0) % MCV 79.4 L (80.0-98.0) fL MCH 25.4 L (27.0-33.0) pg MCHC 31.9 (31.0-35.0) g/dl RDW 14.1 (11.0-16.0) % Plt Count 357 (160-400) X10*3/uL MPV 9.9 (9.4-12.3) fL Immature Gran % (Auto) 0.3 (0.0-0.4) % Neut % (Auto) 84.2 H (45-73) % Lymph % (Auto) 11.6 L (20-40) % [place] % (Auto) 3.5 (2-11) % Eos % (Auto) 0.1 (0-4) % Baso % (Auto) 0.3 (0-2) % Lymph # (Auto) 1.2 (1.2-4.9) X10*3/uL [place] # (Auto) 0.4 (0.1-1.2) X10*3/uL Eos # (Auto) 0.0 (0.0-0.4) X10*3/uL Baso # (Auto) 0.0 (0.0-0.2) X10*3/uL Abs Immat Gran (auto) 0.03 (0.00-0.03) X10*3/uL Absolute Neuts (auto) 8.7 H (2.0-8.3) x10*3/uL Absolute Nucleated RBC 0.000 (0.0-0.012) X10*3/uL Nucleated RBC % (auto) 0.0 (0.0-0.2) /100WBC Sodium 138 (135-145) mmol/L Potassium 4.2 (3.3-5.1) mmol/L Chloride 103 (96-108) mmol/L Carbon Dioxide 25 (22-29) mmol/L Anion Gap 14 (12-20) BUN 7 L (9-16) mg/dL Creatinine 0.73 (0.5-1.4) mg/dL Estim Creat Clear Calc 111.7 Estimated GFR > 60 Random Glucose 115 (60-115) mg/dL Calcium 9.8 (8.4-10.2) mg/dL Total Bilirubin 0.3 (0.0-1.0) mg/dL Direct Bilirubin 0.1 (0.0-0.5) mg/dL AST 23 (5-31) U/L ALT 28 (0-31) U/L Alkaline Phosphatase 91 (39-117) U/L Total Protein 7.5 (6.5-8.0) g/dL Albumin 4.2 (3.5-5.0) g/dL Lipase 21 (8-78) U/L Beta HCG, Quant < 2 mIU/mL Critical Care Time Critical Care Time Critical Care Time: Yes Total Critical Care Time: 30 Attestation: I have personally provided critical care time. Time includes review of lab data, radiology results, discussion with consultants, and monitoring for potential decompensation. Intervention performed as documented. Discharge Plan Discharge Clinical Impression: Headache, Acute dehydration Patient Disposition: Home, Self-Care Instructions: Dehydration (ED), Acute Headache (ED) Additional Instructions: Please follow-up with your primary care physician tomorrow. If you have any worsening or new symptoms, please return to the emergency room or call 911 Prescriptions: New ketorolac 10 mg tablet 10 mg PO BID PRN (Reason: pain) Qty: 10 0RF acetaminophen 500 mg capsule 500 mg PO Q6H PRN (Reason: fever or pain) Qty: 20 0RF No Action nitrofurantoin monohyd/m-cryst [Macrobid] 100 mg capsule 100 mg PO Q12H 5 Days Qty: 10 0RF Rx Instructions: must administer with a meal/food hydrocortisone [Anti-Itch (HC)] 1 % ointment 1 applic topical BID PRN (Reason: itching) Qty: 28.35 0RF Rx Instructions: apply to hemorrhoid lidocaine 4 % cream 1 applic topical BID PRN (Reason: pain) Qty: 5 0RF Rx Instructions: apply to hemorrhoid oxycodone 5 mg tablet 5 mg PO TID PRN (Reason: pain) Qty: 7 0RF amoxicillin 500 mg capsule 500 mg PO BID Qty: 14 0RF oxycodone-acetaminophen [Percocet] 5-325 mg tablet 1 tab PO TID PRN (Reason: pain) Qty: 5 0RF Stand Alone Forms: Work/School Release
[2023-03-04 21:42] LABS: HCG Quantitative < 2 mIU/mL
[2023-03-04] MEDS: Acetaminophen 325 MG TABLET 975 MG PO (21:45)
[2023-03-04] MEDS: Metoclopramide HCl 10 MG/2 ML VIAL IVPUSH (21:45)
[2023-03-04] MEDS: 0.9 % Sodium Chloride 1,000 ML 999 ML IVCONT (21:45)
[2023-03-04] MEDS: Ketorolac Tromethamine 30 MG/ML VIAL IVPUSH (21:51)
[2023-03-04] MEDS: diphenhydrAMINE HCL 50 MG/ML VIAL 25 MG IVPUSH (22:24)
[2023-03-05 00:30] VITALS: BP 140/71; PULSE 71; RESP 18; O2SAT 100
== END 2023-03-05 00:45 | disposition home or self-care (01) ==
PROVIDERS: Emergency Provider Emergency Medicine
DX: R51.9 Headache, unspecified (principal); E86.0 Dehydration; R10.9 Unspecified abdominal pain; R11.2 Nausea with vomiting, unspecified; Z79.899 Other long term (current) drug therapy
CPT/HCPCS: 36415; 80048; 80076; 83690; 84702; 85025; 96361; 96374; 96375; 99284; J1200; J1885; J2405; J2765

== ENCOUNTER 2023-04-22 14:46 | Emergency (ER) | payer OTHER, SELFPAY ==
--- NOTE | ~2023-04-22 | US_ITS ---
EXAMINATION: US OBSTETRICAL ULTRASOUND CLINICAL INFORMATION: Positive hCG. Pain. COMPARISON: CT abdomen/pelvis 11/16/2020. LMP: Unknown. TECHNIQUE: Ultrasound of the maternal pelvis is performed using transabdominal and transvaginal transducers. Transvaginal imaging is performed due to inadequate visualization transabdominally. M-mode Doppler is also performed. FINDINGS: Single intrauterine gestational sac measuring 1.9 cm corresponding to a gestational age of 6 weeks and 6 days. No evidence of yolk sac or pole. No subchorionic bleed. Cervical os is closed. Incidentally noted 0.2 cm lower anterior intramural calcification of doubtful significance. The right ovary is normal in morphology measuring 2.5 x 1.4 x 1.1 cm (2.6 mL). The left ovary is enlarged measuring 6.5 x 3.4 x 4.8 cm (55.5 mL) with 2 simple appearing cysts measuring 2.9 x 2.1 x 3.1 cm and 3 x 2.6 x 2.7 cm. The ovarian parenchyma surrounding these cysts is subjectively thickened. There is preserved flow on color and spectral Doppler to both ovaries at the moment of this examination. No extraovarian adnexal mass. No free fluid. US/US OB pelvic and transvaginal IMPRESSION: Single intrauterine gestational sac measuring 1.9 cm without a visible yolk sac or pole; due to the size of the gestational sac, the lack of a yolk sac is atypical, and findings are suspicious for failure. Recommend correlation with quantitative hCG and close attention on follow-up. The left ovary is significantly enlarged compared to the right, most likely explained by the presence of 2 dominant cysts. There is preserved flow to the ovaries at the moment of this examination. However, the presence of partial torsion or torsion/detorsion in the left ovary cannot be excluded based upon this examination for which clinical correlation is recommended. The appearance of the cysts is benign, and in an asymptomatic patient, no additional imaging follow-up is recommended for these cysts. If symptoms persist, short-term follow-up is advised.
--- NOTE | ~2023-04-22 | US_ITS ---
EXAMINATION: US ABDOMEN LIMITED CLINICAL INFORMATION: Right upper quadrant pain. COMPARISON: CT dated 11/16/2020 and MR dated 10/01/2019. TECHNIQUE: Real-time imaging of the right upper quadrant abdominal viscera. FINDINGS: The pancreas is partially visualized within normal limits. Distal body and tail are not seen. The liver is straightening echogenic lesion in the left lobe measuring 1.8 x 1.3 x 1.7 cm. This could well represent a hemangioma in this young patient. No other lesion. The gallbladder is no evidence for stone or edema. Common duct is 4 to 6 mm. No intrahepatic ductal dilatation The right kidney is 12 cm. No hydronephrosis. Possible extrarenal pelvis. No stone. US/US abdomen limited IMPRESSION: No evidence for cholelithiasis or cholecystitis. No free fluid. Echogenic lesion left lobe of liver may well represent a hemangioma in this young female patient. Correlation recommended clinically. Consider dedicated dynamic MRI for full evaluation contrast enhanced
[2023-04-22 15:23] VITALS: BP 138/84; BP 140/75; PULSE 64; PULSE 65; RESP 18; TEMP 36.4; O2SAT 100; O2SAT 99; BMI 20.6
--- NOTE | 2023-04-22 16:11 | ED_ITS ---
HPI - Abdominal Pain General Chief Complaint: Abdominal Pain Stated Complaint: Nausea/vomiting & abd pain Time Seen by Provider: 04/22/23 15:58 Source: patient and old records reviewed Mode of arrival: EMS Limitations: no limitations History of Present Illness HPI narrative: 33 yo female with PMH of HTN, ectopic s/p surgery 3 years ago here with c/o one month of intermittent upper abdominal and RUQ pain with n/v that has worsened x 2 days. She was seen for same thing in April. She has no fevers, diarrhea. She has GERD symptoms in AM but not on medications. Denies known . MD elicited complaint: abdominal pain Pertinent past history: other (ectopic ) Onset (ago): month(s) (1) Pain Consistency: intermittent Location: epigastric and RUQ Severity: moderate Quality: aching Radiation: RUQ Migration to: no migration Exacerbating factors: eating Relieving factors: nothing Context: history of similar episodes Associated symptoms: nausea, vomiting and anorexia Related Data Previous Rx's Medication Instructions Recorded hydrocortisone 1 % topical 1 applic topical BID PRN itching 04/14/20 ointment (Anti-Itch #28.35 grams (hydrocortisone)) lidocaine 4 % topical cream 1 applic topical BID PRN pain #5 04/14/20 grams nitrofurantoin 100 mg PO Q12H 5 days #10 caps 11/20/20 monohydrate/macrocrystals 100 mg capsule (Macrobid) oxycodone 5 mg tablet 5 mg PO TID PRN pain #7 tabs 04/04/21 amoxicillin 500 mg capsule 500 mg PO BID #14 caps 04/15/21 oxycodone-acetaminophen 5 mg-325 1 tab PO TID PRN pain #5 tabs 04/15/21 mg tablet (Percocet) acetaminophen 500 mg capsule 500 mg PO Q6H PRN fever or pain 03/05/23 #20 caps ketorolac 10 mg tablet 10 mg PO BID PRN pain #10 tabs 03/05/23 metoclopramide HCl 10 mg tablet 10 mg PO Q6H PRN nausea and 04/22/23 (Reglan) vomiting #30 tabs Allergies Allergy/AdvReac Type Severity Reaction Status Date / Time No Known Allergies Allergy Verified 04/22/23 15:23 [No Known Allergies*] Review of Systems Review of Systems Constitutional : No Weight loss, No Fever, No Chills ENT/Mouth : No sore throat, No Rhinorrhea Eyes: No Swelling, No Redness Cardiovascular : No Chest Pain, No SOB, NoEdema Respiratory : No Cough, No Sputum, No Wheezing Gastrointestinal : Positive Nausea, Positive Vomiting, no Diarrhea, positive abdominal Pain, No Hematochezia, No Melena Genitourinary : No Dysuria, No Urinary Frequency, No Hematuria, No Urgency Musculoskeletal : No joint pain, No Myalgias, No Joint Swelling Skin : No Skin Lesions, No rash Neuro : No Weakness, No Numbness, No Dizziness, No Headache Psych : No Anxiety/Panic, No Depression All other systems reviewed and are negative. [facility] Past Medical History Source: old records reviewed Medical History Ectopic Pre-eclampsia HTN (hypertension) Social History Social History (Updated 04/22/23 @ 16:13 by Latha Collins DO) Alcohol intake: never Patient Tobacco Use Status: Never used Tobacco Advance Directives: No Advance Directives Information Provided: No Physical Exam ED Vital Signs: Vital Signs - 24 hr 04/22/23 15:23 Temperature 97.6 F Pulse Rate 64 Respiratory Rate 18 Blood Pressure 140/75 H Pulse Oximetry 100 Oxygen Delivery Method Room Air BMI result Body Mass Index 20.6 Appearance: Alert. Oriented X3. No acute distress. Eyes: Pupils equal, round and reactive to light. ENT: Pharynx normal. Neck: Normal inspection. Neck supple. CVS: Normal heart rate and rhythm. Pulses normal. Respiratory: No respiratory distress. Breath sounds normal. Abdomen: Soft and moderate RUQ ttp and epigastric pain + Anderson's sign Skin: Skin warm and dry. Normal skin color. Normal skin turgor. Extremities: No lower extremity edema. No calf ttp Neuro: Oriented X 3. No motor deficit. No sensory deficit. Course Course Course Narrative: + disclosed low dose toradol and patient low risk for adverse reactions, US of pelvis also ordered given ectopic hx Reevaluation(s) Reevaluation #1: doubt torsion has no LLQ pain will need repeat hcg in 2 days. will refer to OB, feels better able to tolerate PO send home with threatened ab and ectopic precautions Reevaluation #2: tolerating PO stable for DC Medical Decision Making Medical Decision Making MDM Narrative: 33 yo female with PMH of HTN, ectopic s/p surgery here with 1 month of n/v intermittent and RUQ and epigastric pain - worse with eating unknown if she has GERD but has GERD like symptoms. At this time will obtain UA, test, labs, start on IVF and supportive medications and obtain US to evaluate gallbladder given RUQ pain and + anderson's sign for biliary colic. Differential Diagnosis Differential Diagnoses: The differential diagnosis associated with the presentation includes gastritis, GERD, biliary colic, Admission/Observation Consideration of admission/observation: Escalation of care including admission/observation considered Lab Data [facility] Lab Attestation statement: I reviewed the patient's lab results. 04/22/23 16:27 04/22/23 16:27 Labs: Lab Results 04/22/23 04/22/23 Range/Units 16:27 20:48 WBC 11.0 H (4.8-10.8) X10*3/uL RBC 4.92 (4.20-5.50) X10*6/uL Hgb 12.5 (12.0-16.0) g/dl Hct 39.3 (37.0-47.0) % MCV 79.9 L (80.0-98.0) fL MCH 25.4 L (27.0-33.0) pg MCHC 31.8 (31.0-35.0) g/dl RDW 14.6 (11.0-16.0) % Plt Count 367 (160-400) X10*3/uL MPV 10.0 (9.4-12.3) fL Immature Gran % (Auto) 0.3 (0.0-0.4) % Neut % (Auto) 83.2 H (45-73) % Lymph % (Auto) 13.6 L (20-40) % [place] % (Auto) 2.6 (2-11) % Eos % (Auto) 0.0 (0-4) % Baso % (Auto) 0.3 (0-2) % Lymph # (Auto) 1.5 (1.2-4.9) X10*3/uL [place] # (Auto) 0.3 (0.1-1.2) X10*3/uL Eos # (Auto) 0.0 (0.0-0.4) X10*3/uL Baso # (Auto) 0.0 (0.0-0.2) X10*3/uL Abs Immat Gran (auto) 0.03 (0.00-0.03) X10*3/uL Absolute Neuts (auto) 9.1 H (2.0-8.3) x10*3/uL Absolute Nucleated RBC 0.000 (0.0-0.012) X10*3/uL Nucleated RBC % (auto) 0.0 (0.0-0.2) /100WBC Sodium 139 (135-145) mmol/L Potassium 3.9 (3.3-5.1) mmol/L Chloride 105 (96-108) mmol/L Carbon Dioxide 24 (22-29) mmol/L Anion Gap 14 (12-20) BUN 6 L (9-16) mg/dL Creatinine 0.79 (0.5-1.4) mg/dL Estim Creat Clear Calc 87.8 Estimated GFR > 60 Random Glucose 97 (60-115) mg/dL Calcium 9.6 (8.4-10.2) mg/dL Magnesium 2.4 (1.6-2.6) mg/dL Total Bilirubin 0.3 (0.0-1.0) mg/dL Direct Bilirubin 0.2 (0.0-0.5) mg/dL AST 15 (5-31) U/L ALT 14 (0-31) U/L Alkaline Phosphatase 83 (39-117) U/L Total Protein 8.2 H (6.5-8.0) g/dL Albumin 4.8 (3.5-5.0) g/dL Lipase 30 (8-78) U/L Beta HCG, Quant 58029 mIU/mL Urine Color Yellow Urine Appearance Clear Urine pH 6.0 (5.0-9.0) Ur Specific [place] 1.015 (1.005-1.025) Urine Protein Negative (Neg-Trace) mg/dL Urine Glucose (UA) Negative (Negative) mg/dL Urine Ketones 80 (Negative) mg/dL Urine Blood Negative (Negative) Urine Nitrite Negative (Negative) Ur Leukocyte Esterase Negative (Negative) Independent Interpretation I performed an independent interpretation of an: Ultrasound Radiology Impression Discussion of test interpretation with radiology: I have reviewed the radiologist's reading. External Record Review External record reviewed: Inpatient record Medications Administered Discontinued Medications Generic Name Dose Route Start Last Admin Trade Name Edgardo PRN Reason Stop Dose Admin Diphenhydramine HCl 25 mg 04/22/23 18:59 04/22/23 19:25 Diphenhydramine Hcl 50 Mg/Ml Vial IVPUSH 04/22/23 19:00 25 mg ONCE ONE Administration Famotidine 20 mg 04/22/23 16:18 04/22/23 16:33 Famotidine/Pf 20 Mg/2 Ml Vial IVPUSH 04/22/23 16:19 20 mg ONCE ONE Administration Sodium Chloride 1,000 mls @ 999 mls/hr 04/22/23 16:00 04/22/23 17:40 Ns IVCONT 04/22/23 17:00 Infused .Q1H1M RAMBO Infusion Sodium Chloride 1,000 mls @ 999 mls/hr 04/22/23 19:00 04/22/23 20:32 Ns IV 04/22/23 20:00 Infused .Q1H1M RAMBO Infusion Ketorolac Tromethamine 15 mg 04/22/23 16:18 04/22/23 16:33 Ketorolac Tromethamine 15 Mg/Ml Vial IVPUSH 04/22/23 16:19 15 mg ONCE ONE Administration Metoclopramide HCl 10 mg 04/22/23 18:59 04/22/23 19:25 Metoclopramide Hcl 10 Mg/2 Ml Vial IVPUSH 04/22/23 19:00 10 mg ONCE ONE Administration Ondansetron HCl 4 mg 04/22/23 16:00 04/22/23 16:29 Ondansetron Hcl 4 Mg/2 Ml Vial IVPUSH 04/22/23 16:01 4 mg ONCE ONE Administration Discharge Plan Discharge Clinical Impression: Hyperemesis Qualifiers: Weeks of gestation: less than 8 weeks Qualified Code(s): Z3A.01 - Less than 8 weeks gestation of Patient Disposition: Home, Self-Care Instructions: Acute Nausea and Vomiting (ED), (ED) Additional Instructions: you are sent home on ectopic precautions so severe abdominal pain, faitning, vaginal bleeding or any concerns. repeat hormone level in 2 weeks and US in 5 to 7 days with your OBGYN. stay hydrated. IMPRESSION: No evidence for cholelithiasis or cholecystitis. No free fluid. Echogenic lesion left lobe of liver may well represent a hemangioma in this young female patient. Correlation recommended clinically. Consider dedicated dynamic MRI for full evaluation contrast enhanced Ultrasound of the maternal pelvis is performed using transabdominal and transvaginal transducers. Transvaginal imaging is performed due to inadequate visualization transabdominally. M-mode Doppler is also performed. FINDINGS: Single intrauterine gestational sac measuring 1.9 cm corresponding to a gestational age of 6 weeks and 6 days. No evidence of yolk sac or pole. No subchorionic bleed. Cervical os is closed. Incidentally noted 0.2 cm lower anterior intramural calcification of doubtful significance. The right ovary is normal in morphology measuring 2.5 x 1.4 x 1.1 cm (2.6 mL). The left ovary is enlarged measuring 6.5 x 3.4 x 4.8 cm (55.5 mL) with 2 simple appearing cysts measuring 2.9 x 2.1 x 3.1 cm and 3 x 2.6 x 2.7 cm. The ovarian parenchyma surrounding these cysts is subjectively thickened. There is preserved flow on color and spectral Doppler to both ovaries at the moment of this examination. No extraovarian adnexal mass. No free fluid. US/US OB pelvic and transvaginal IMPRESSION: Single intrauterine gestational sac measuring 1.9 cm without a visible yolk sac or pole; due to the size of the gestational sac, the lack of a yolk sac is atypical, and findings are suspicious for failure. Recommend correlation with quantitative hCG and close attention on follow-up. The left ovary is significantly enlarged compared to the right, most likely explained by the presence of 2 dominant cysts. Prescriptions: New metoclopramide HCl [Reglan] 10 mg tablet 10 mg PO Q6H PRN (Reason: nausea and vomiting) Qty: 30 0RF No Action nitrofurantoin monohyd/m-cryst [Macrobid] 100 mg capsule 100 mg PO Q12H 5 Days Qty: 10 0RF Rx Instructions: must administer with a meal/food hydrocortisone [Anti-Itch (HC)] 1 % ointment 1 applic topical BID PRN (Reason: itching) Qty: 28.35 0RF Rx Instructions: apply to hemorrhoid lidocaine 4 % cream 1 applic topical BID PRN (Reason: pain) Qty: 5 0RF Rx Instructions: apply to hemorrhoid oxycodone 5 mg tablet 5 mg PO TID PRN (Reason: pain) Qty: 7 0RF amoxicillin 500 mg capsule 500 mg PO BID Qty: 14 0RF oxycodone-acetaminophen [Percocet] 5-325 mg tablet 1 tab PO TID PRN (Reason: pain) Qty: 5 0RF ketorolac 10 mg tablet 10 mg PO BID PRN (Reason: pain) Qty: 10 0RF acetaminophen 500 mg capsule 500 mg PO Q6H PRN (Reason: fever or pain) Qty: 20 0RF
[2023-04-22] MEDS: ondansetron HCL 4 MG/2 ML VIAL IVPUSH (16:29)
[2023-04-22] MEDS: 0.9 % Sodium Chloride 1,000 ML 999 ML IVCONT (16:29)
[2023-04-22] MEDS: Famotidine/PF 20 MG/2 ML VIAL IVPUSH (16:33)
[2023-04-22] MEDS: Ketorolac Tromethamine 15 MG/ML VIAL IVPUSH (16:33)
[2023-04-22 16:35] LABS: MANUAL DIFF FLAG NO
[2023-04-22 16:37] LABS: Basophils Percent Auto 0.3 % (0-2); Hematocrit 39.3 % (37.0-47.0); Hemoglobin 12.5 g/dl (12.0-16.0); Imm Gran Abs Auto 0.03 X10*3/uL (0.00-0.03); Imm Gran Pct Auto 0.3 % (0.0-0.4); Lymphocytes Absolute Auto 1.5 X10*3/uL (1.2-4.9); Lymphocytes Percent Auto 13.6 % (20-40); Mean Corpuscular HGB Conc 31.8 g/dl (31.0-35.0); Mean Corpuscular Hemoglobin 25.4 pg (27.0-33.0); Mean Corpuscular Volume 79.9 fL (80.0-98.0); Monocytes Absolute Auto 0.3 X10*3/uL (0.1-1.2); Monocytes Percent Auto 2.6 % (2-11); Neutrophils Absolute Auto 9.1 x10*3/uL (2.0-8.3); Neutrophils Percent Auto 83.2 % (45-73); Platelet Count 367 X10*3/uL (160-400); Red Blood Count 4.92 X10*6/uL (4.20-5.50); Red Cell Distribution Width 14.6 % (11.0-16.0)
[2023-04-22 17:02] LABS: Alanine Aminotransferase 14 U/L (0-31); Albumin Level 4.8 g/dL (3.5-5.0); Alkaline Phosphatase 83 U/L (39-117); Anion Gap 14 (12-20); Aspartate Amino Transferase 15 U/L (5-31); Bilirubin Direct 0.2 mg/dL (0.0-0.5); Bilirubin Total 0.3 mg/dL (0.0-1.0); Blood Urea Nitrogen 6 mg/dL (9-16); Calcium 9.6 mg/dL (8.4-10.2); Carbon Dioxide 24 mmol/L (22-29); Chloride 105 mmol/L (96-108); Creatinine Clr Calc Pharmacy 87.8; Estimated Glomerular Filt Rate > 60; Glucose Random 97 mg/dL (60-115); Lipase 30 U/L (8-78); Magnesium 2.4 mg/dL (1.6-2.6); Potassium 3.9 mmol/L (3.3-5.1); Sodium 139 mmol/L (135-145); Total Protein 8.2 g/dL (6.5-8.0)
[2023-04-22 17:40] LABS: HCG Quantitative 31275 mIU/mL
[2023-04-22] MEDS: Metoclopramide HCl 10 MG/2 ML VIAL IVPUSH (19:25)
[2023-04-22] MEDS: diphenhydrAMINE HCL 50 MG/ML VIAL 25 MG IVPUSH (19:25)
[2023-04-22] MEDS: 0.9 % Sodium Chloride 1,000 ML 999 ML IV (19:35)
[2023-04-22 20:00] VITALS: BP 132/80; PULSE 66; RESP 16; TEMP 36.8; O2SAT 99
[2023-04-22 21:02] LABS: Appearance Urine Clear; Color Urine Yellow; Glucose Urine UA Negative (Negative); Leukocyte Esterase Urine Negative (Negative); Nitrite Urine Negative (Negative); Specific Gravity - Urine 1.015 (1.005-1.025); Urine Blood Negative (Negative); Urine Ketones 80 mg/dL (Negative); Urine Protein Negative (Neg-Trace)
== END 2023-04-22 21:45 | disposition home or self-care (01) ==
PROVIDERS: Emergency Provider Emergency Medicine
DX: O21.0 Mild hyperemesis gravidarum (principal); R10.9 Unspecified abdominal pain; Z3A.08 8 weeks gestation of pregnancy; Z79.899 Other long term (current) drug therapy
CPT/HCPCS: 36415; 76705; 76801; 76817; 80048; 80076; 81003; 83690; 83735; 84702; 85025; 96361; 96374; 96375; 99284; 99285; J1200; J1885; J2405; J2765

== ENCOUNTER 2023-05-01 20:36 | Emergency (ER) | payer OTHER, SELFPAY ==
[2023-05-01 20:42] VITALS: BP 132/78; BP 146/95; PULSE 91; PULSE 95; RESP 20; TEMP 36.9; O2SAT 96; O2SAT 97; BMI 22.3
[2023-05-01 21:00] LABS: MANUAL DIFF FLAG NO
[2023-05-01 21:04] LABS: Basophils Percent Auto 0.3 % (0-2); Hematocrit 36.2 % (37.0-47.0); Hemoglobin 11.9 g/dl (12.0-16.0); Imm Gran Abs Auto 0.04 X10*3/uL (0.00-0.03); Imm Gran Pct Auto 0.4 % (0.0-0.4); Lymphocytes Absolute Auto 1.7 X10*3/uL (1.2-4.9); Lymphocytes Percent Auto 14.8 % (20-40); Mean Corpuscular HGB Conc 32.9 g/dl (31.0-35.0); Mean Corpuscular Hemoglobin 25.6 pg (27.0-33.0); Mean Corpuscular Volume 77.8 fL (80.0-98.0); Mean Platelet Volume 9.9 fL (9.4-12.3); Monocytes Absolute Auto 0.3 X10*3/uL (0.1-1.2); Monocytes Percent Auto 2.9 % (2-11); Neutrophils Absolute Auto 9.1 x10*3/uL (2.0-8.3); Neutrophils Percent Auto 81.6 % (45-73); Platelet Count 348 X10*3/uL (160-400); Red Blood Count 4.65 X10*6/uL (4.20-5.50); Red Cell Distribution Width 14.2 % (11.0-16.0); White Blood Count 11.2 X10*3/uL (4.8-10.8)
--- NOTE | 2023-05-01 21:04 | PC.NURSE ---
Patient BIB EMS for evaluation of nausea with vomiting all day today, patient states she is 8 weeks . Appt with OBGYN . Patient was recently prescribed Reglan but states it is no longer helping. Patient also endorsing epigastric pain. . 20 G IV line established in L AC, labs drawn and sent to lab for processing. Call ling placed within patient's reach. Plan of care ongoing.
--- NOTE | 2023-05-01 21:17 | ED.NAVMDI ---
HPI - Nausea/Vomiting/Diarrhea General Chief complaint: Nausea/Vomiting/Diarrhea Stated complaint: Vomiting due to preg. Unable to keep food down Time Seen by Provider: 05/01/23 21:15 Source: patient Mode of arrival: ambulatory Limitations: no limitations History of Present Illness HPI Narrative: Patient 8 weeks been having nausea vomiting during this been more sick all day today vomiting unable to hold any liquids down, been taking Reglan without much response no vaginal bleed no urinary complaints no abdominal pain no fever or chills Related Data Previous Rx's Medication Instructions Recorded hydrocortisone 1 % topical 1 applic topical BID PRN itching 04/14/20 ointment (Anti-Itch #28.35 grams (hydrocortisone)) lidocaine 4 % topical cream 1 applic topical BID PRN pain #5 04/14/20 grams nitrofurantoin 100 mg PO Q12H 5 days #10 caps 11/20/20 monohydrate/macrocrystals 100 mg capsule (Macrobid) oxycodone 5 mg tablet 5 mg PO TID PRN pain #7 tabs 04/04/21 amoxicillin 500 mg capsule 500 mg PO BID #14 caps 04/15/21 oxycodone-acetaminophen 5 mg-325 1 tab PO TID PRN pain #5 tabs 04/15/21 mg tablet (Percocet) acetaminophen 500 mg capsule 500 mg PO Q6H PRN fever or pain 03/05/23 #20 caps ketorolac 10 mg tablet 10 mg PO BID PRN pain #10 tabs 03/05/23 metoclopramide HCl 10 mg tablet 10 mg PO Q6H PRN nausea and 04/22/23 (Reglan) vomiting #30 tabs cefuroxime axetil 250 mg tablet 250 mg PO BID 7 days #14 tabs 05/02/23 ondansetron 4 mg disintegrating 4 mg PO Q6-8H PRN nausea and 05/02/23 tablet vomiting #20 tabs Allergies Allergy/AdvReac Type Severity Reaction Status Date / Time No Known Allergies Allergy Verified 05/01/23 20:42 [No Known Allergies*] Review of Systems Review of Systems: Yes all other systems are reviewed and are negative PMFSH Past Medical History Medical History Ectopic Pre-eclampsia HTN (hypertension) Social History Social History Alcohol intake: never Patient Tobacco Use Status: Never used Tobacco Smoked in Last 30 Days: No Use of substances other than those prescribed or required for medical reasons: No Advance Directives: No Advance Directives Information Provided: Yes Patient : Yes Physical Exam Vital Signs: Vital Signs: Last Vital Signs Temp 98.5 F 05/01/23 23:56 Pulse 62 05/01/23 23:56 Resp 16 05/01/23 23:56 BP 130/69 05/01/23 23:56 Pulse Ox 98 05/01/23 23:56 O2 Del Method Room Air 05/01/23 23:56 BMI result Body Mass Index 22.3 Appearance: Alert. Oriented X3. Actively vomiting Eyes: No pallor or icterus ENT: Pharynx normal. Oral Mucosa moist Neck: Normal inspection. Neck supple. CVS: Normal heart rate and rhythm. Pulses normal. Respiratory: No respiratory distress. Equal air entry bilateral, no wheezing/rales/rhonchi Abdomen: Soft and nontender. Bowel sounds are present, no mass palpable, no CVA tenderness Skin: Skin warm and dry. Normal skin color. Normal skin turgor. Extremities: No lower extremity edema. No calf tenderness Neuro: Oriented X 3. Medications Administered Discontinued Medications Generic Name Dose Route Start Last Admin Trade Name Freq PRN Reason Stop Dose Admin Cefuroxime Axetil 250 mg 05/02/23 00:32 05/02/23 00:54 Cefuroxime Axetil 250 Mg Tablet PO 05/02/23 00:33 250 mg ONCE ONE Administration Sodium Chloride 1,000 mls @ 999 mls/hr 05/01/23 21:25 05/01/23 22:40 Ns IV 05/01/23 22:25 Infused .Q1H1M ONE Infusion Sodium Chloride 1,000 mls @ 999 mls/hr 05/01/23 23:39 05/02/23 00:49 Ns IV 05/02/23 00:39 Infused .Q1H1M ONE Infusion Ondansetron HCl 4 mg 05/01/23 21:25 05/01/23 21:36 Ondansetron Hcl 4 Mg/2 Ml Vial IVPUSH 05/01/23 21:26 4 mg ONCE ONE Administration Ondansetron HCl 4 mg 05/01/23 23:39 05/01/23 23:43 Ondansetron Hcl 4 Mg/2 Ml Vial IVPUSH 05/01/23 23:40 4 mg ONCE ONE Administration Medical Decision Making Medical Decision Making [facility] Narrative: Patient with vomiting in also has UTI will give p.o. Ceftin since the sling much better discharge patient home Admission/Observation Consideration of admission/observation: Escalation of care including admission/observation considered Lab Data [facility] Lab Attestation statement: I reviewed the patient's lab results. 05/01/23 20:55 05/01/23 20:55 Labs: Lab Results 05/01/23 05/01/23 Range/Units 20:55 23:35 WBC 11.2 H (4.8-10.8) X10*3/uL RBC 4.65 (4.20-5.50) X10*6/uL Hgb 11.9 L (12.0-16.0) g/dl Hct 36.2 L (37.0-47.0) % MCV 77.8 L (80.0-98.0) fL MCH 25.6 L (27.0-33.0) pg MCHC 32.9 (31.0-35.0) g/dl RDW 14.2 (11.0-16.0) % Plt Count 348 (160-400) X10*3/uL MPV 9.9 (9.4-12.3) fL Immature Gran % (Auto) 0.4 (0.0-0.4) % Neut % (Auto) 81.6 H (45-73) % Lymph % (Auto) 14.8 L (20-40) % [place] % (Auto) 2.9 (2-11) % Eos % (Auto) 0.0 (0-4) % Baso % (Auto) 0.3 (0-2) % Lymph # (Auto) 1.7 (1.2-4.9) X10*3/uL [place] # (Auto) 0.3 (0.1-1.2) X10*3/uL Eos # (Auto) 0.0 (0.0-0.4) X10*3/uL Baso # (Auto) 0.0 (0.0-0.2) X10*3/uL Abs Immat Gran (auto) 0.04 H (0.00-0.03) X10*3/uL Absolute Neuts (auto) 9.1 H (2.0-8.3) x10*3/uL Absolute Nucleated RBC 0.000 (0.0-0.012) X10*3/uL Nucleated RBC % (auto) 0.0 (0.0-0.2) /100WBC Sodium 138 (135-145) mmol/L Potassium 3.9 (3.3-5.1) mmol/L Chloride 104 (96-108) mmol/L Carbon Dioxide 21 L (22-29) mmol/L Anion Gap 17 (12-20) BUN 9 (9-16) mg/dL Creatinine 0.68 (0.5-1.4) mg/dL Estim Creat Clear Calc 102.5 Estimated GFR > 60 Random Glucose 136 H (60-115) mg/dL Calcium 9.1 (8.4-10.2) mg/dL Total Bilirubin 0.3 (0.0-1.0) mg/dL AST 18 (5-31) U/L ALT 17 (0-31) U/L Alkaline Phosphatase 78 (39-117) U/L Total Protein 7.6 (6.5-8.0) g/dL Albumin 4.4 (3.5-5.0) g/dL Beta HCG, Quant 64882 mIU/mL Urine Color Yellow Urine Appearance Cloudy Urine pH 7.0 (5.0-9.0) Ur Specific [place] 1.020 (1.005-1.025) Urine Protein Trace (Neg-Trace) mg/dL Urine Glucose (UA) Negative (Negative) mg/dL Urine Ketones 40 (Negative) mg/dL Urine Blood Negative (Negative) Urine Nitrite Negative (Negative) Ur Leukocyte Esterase Small (1+) H (Negative) Urine RBC 0-2 (0-2) /HPF Urine WBC 6-10 H (0-5) /HPF Ur Squamous Epith Cells 11-20 (0-2) /HPF Urine Bacteria 3+ (None Seen) Hyaline Casts 0-2 (0-2) /LPF Discharge Plan Discharge Clinical Impression: Hyperemesis gravidarum, UTI (urinary tract infection) Patient Disposition: Home, Self-Care Instructions: Hyperemesis Gravidarum (ED), Urinary Tract Infection in (ED) Additional Instructions: Drink plenty of fluid Take antibiotic as prescribed Zofran for nausea/vomiting Follow with your PCP Prescriptions: New cefuroxime axetil 250 mg tablet 250 mg PO BID 7 Days Qty: 14 0RF ondansetron 4 mg tablet,disintegrating 4 mg PO Q6-8H PRN (Reason: nausea and vomiting) Qty: 20 0RF No Action nitrofurantoin monohyd/m-cryst [Macrobid] 100 mg capsule 100 mg PO Q12H 5 Days Qty: 10 0RF Rx Instructions: must administer with a meal/food hydrocortisone [Anti-Itch (HC)] 1 % ointment 1 applic topical BID PRN (Reason: itching) Qty: 28.35 0RF Rx Instructions: apply to hemorrhoid lidocaine 4 % cream 1 applic topical BID PRN (Reason: pain) Qty: 5 0RF Rx Instructions: apply to hemorrhoid oxycodone 5 mg tablet 5 mg PO TID PRN (Reason: pain) Qty: 7 0RF amoxicillin 500 mg capsule 500 mg PO BID Qty: 14 0RF oxycodone-acetaminophen [Percocet] 5-325 mg tablet 1 tab PO TID PRN (Reason: pain) Qty: 5 0RF ketorolac 10 mg tablet 10 mg PO BID PRN (Reason: pain) Qty: 10 0RF acetaminophen 500 mg capsule 500 mg PO Q6H PRN (Reason: fever or pain) Qty: 20 0RF metoclopramide HCl [Reglan] 10 mg tablet 10 mg PO Q6H PRN (Reason: nausea and vomiting) Qty: 30 0RF Interventions: ED Discharge Assessment Last Done: 05/02/23 00:56 Discharge Date/Time: 05/02/23 00:57
[2023-05-01 21:28] LABS: Alanine Aminotransferase 17 U/L (0-31); Albumin Level 4.4 g/dL (3.5-5.0); Alkaline Phosphatase 78 U/L (39-117); Anion Gap 17 (12-20); Aspartate Amino Transferase 18 U/L (5-31); Bilirubin Total 0.3 mg/dL (0.0-1.0); Blood Urea Nitrogen 9 mg/dL (9-16); Calcium 9.1 mg/dL (8.4-10.2); Carbon Dioxide 21 mmol/L (22-29); Chloride 104 mmol/L (96-108); Creatinine Clr Calc Pharmacy 102.5; Estimated Glomerular Filt Rate > 60; Glucose Random 136 mg/dL (60-115); Potassium 3.9 mmol/L (3.3-5.1); Sodium 138 mmol/L (135-145); Total Protein 7.6 g/dL (6.5-8.0)
[2023-05-01] MEDS: ondansetron HCL 4 MG/2 ML VIAL IVPUSH ×2 (21:36→23:43)
[2023-05-01] MEDS: 0.9 % Sodium Chloride 1,000 ML 999 ML IV ×2 (21:37→23:43)
--- NOTE | 2023-05-01 21:40 | PC.NURSE ---
Patient medicated per MAR.
[2023-05-01 22:00] VITALS: BP 124/66; PULSE 57; RESP 16; TEMP 36.8; O2SAT 98
[2023-05-01 23:43] LABS: Appearance Urine Cloudy; Color Urine Yellow; Glucose Urine UA Negative (Negative); Leukocyte Esterase Urine Small (1+) (Negative); Nitrite Urine Negative (Negative); UMIC TRIGGER UACC YES; Urine Blood Negative (Negative); Urine Ketones 40 mg/dL (Negative); Urine Protein Trace mg/dL (Neg-Trace)
--- NOTE | 2023-05-01 23:46 | PC.NURSE ---
VSS. Patient reports abdominal pain and headache resolved. Patient reports starting to feel nauseous. Dr. Baker informed. Patient medicated per AUG. Patient is resting on stretcher bed, call ling in reach.
[2023-05-01 23:48] LABS: Bacteria Urine 3+ (None Seen); Hyaline Casts Urine 0-2 /LPF (0-2); RBC Urine 0-2 /HPF (0-2); UACC Culture Trigger YES
[2023-05-01 23:56] VITALS: BP 130/69; PULSE 62; RESP 16; TEMP 36.9; O2SAT 98
[2023-05-02] MEDS: cefuroxime axetiL 250 MG TABLET PO (00:54)
== END 2023-05-02 00:57 | disposition home or self-care (01) ==
PROVIDERS: Emergency Provider Internal Medicine
DX: O21.0 Mild hyperemesis gravidarum (principal); Z3A.08 8 weeks gestation of pregnancy; R19.7 Diarrhea, unspecified; Z79.899 Other long term (current) drug therapy
CPT/HCPCS: 36415; 80053; 81001; 84702; 85025; 87086; 96361; 96374; 96376; 99284; J2405

== ENCOUNTER 2023-05-10 01:01 | Emergency (ER) | payer OTHER, SELFPAY ==
--- NOTE | ~2023-05-10 | US_ITS ---
EXAMINATION: US OBSTETRICAL ULTRASOUND CLINICAL INFORMATION: 8 week , lower abdominal pain, rule out torsion COMPARISON: 04/22/2023 TECHNIQUE: Sonographic evaluation of the pelvis was performed transabdominally and transvaginally. FINDINGS: Uterus measures 10.6 x 5.7 x 5.7 cm. There is an intrauterine fluid collection suggestive of a gestational sac measuring 2.9 x 1.4 x 2.0 cm, mean diameter 2.1 cm (7 weeks 1 day). Slight internal echoes are seen, though no discrete yolk sac or pole is identified. Trace fluid in the cervix. Right ovary measures 2.4 x 1.4 x 1.6 cm and appears unremarkable. Left ovary measures 5.2 x 3.5 x 3.9 cm. There is a 3.5 cm cyst in the left ovary suspicious for a corpus luteal cyst. Doppler evaluation demonstrates normal-appearing arterial and venous waveforms in both ovaries. Small amount of pelvic free fluid noted. US/US OB pelvic and transvaginal IMPRESSION: 1. Intrauterine fluid collection suggestive of gestational sac. However, no yolk sac or pole is identified. Given mean diameter, if this is a gestational sac the appearance remains suspicious for failure. 2. In the absence of confirmed intrauterine , the possibility of ectopic cannot be entirely excluded, though no suspicious adnexal mass is identified. 3. Small amount of pelvic free fluid. 4. No specific findings to suggest ovarian torsion.
[2023-05-10 01:05] VITALS: BP 122/86; PULSE 90; O2SAT 99
[2023-05-10 01:10] VITALS: BP 146/91; PULSE 94; RESP 16; TEMP 36.6; O2SAT 100; BMI 21.6
--- NOTE | 2023-05-10 01:22 | ED.PREGNANCY ---
HPI - General Chief complaint: Abdominal Pain Stated complaint: 8 WEEKS , ABD PAIN Time Seen by Provider: 05/10/23 01:08 Source: patient Mode of arrival: EMS Limitations: no limitations History of Present Illness HPI Narrative: 33 yo female with PMH of HTN,, preeclampsia, ectopic s/p surgery 3 years ago, 8 week pressure based on gestational sac seen on ultrasound from 04/22/2023 presents emergency department by ambulance for evaluation of abdominal pain which started approximately 30 minutes prior to coming to the emergency department. The pain initially started epigastric area and became generalized throughout her entire abdomen. She felt she used to move her bowels but was unable to move her bowels. She states the pain got progressively worse and is currently more severe in her epigastric area and across her lower abdomen. The pain is a constant cramping sensation which is 10/10. Patient has associated nausea with no vomiting. She states the pain feels similar to the pain that she had when she had a the top 3 years prior. This is the patient's 3rd visit to the emergency department this month. Her 1st visit was on 04/22/2023 with upper abdominal pain with nausea vomiting and was found to be . Duplex ultrasound revealed a single intrauterine gestation sac measuring 1.9 cm without a visible yolk sac or pole, corresponding to a gestational age of 6 weeks and 6 days. Patient had a left ovary which was enlarged with 2 simple appearing cysts measuring( 2.9 x 2.1 x 3.1)cm and( 3.2 x 2 ,6 x 2.7) cm with preserved flow to both ovaries. Quantitative beta-hCG at that time was 31,275. Her 2nd visit was on 05/01/2023 for nausea and vomiting related to . She was diagnosed with urinary tract infection and started on cefuroxime 250 mg b.i.d. x7 days. Urine culture was negative. Quantitative beta-hCG did go up to 36,862 Related Data Previous Rx's Medication Instructions Recorded hydrocortisone 1 % topical 1 applic topical BID PRN itching 04/14/20 ointment (Anti-Itch #28.35 grams (hydrocortisone)) lidocaine 4 % topical cream 1 applic topical BID PRN pain #5 04/14/20 grams nitrofurantoin 100 mg PO Q12H 5 days #10 caps 11/20/20 monohydrate/macrocrystals 100 mg capsule (Macrobid) oxycodone 5 mg tablet 5 mg PO TID PRN pain #7 tabs 04/04/21 amoxicillin 500 mg capsule 500 mg PO BID #14 caps 04/15/21 oxycodone-acetaminophen 5 mg-325 1 tab PO TID PRN pain #5 tabs 04/15/21 mg tablet (Percocet) acetaminophen 500 mg capsule 500 mg PO Q6H PRN fever or pain 03/05/23 #20 caps ketorolac 10 mg tablet 10 mg PO BID PRN pain #10 tabs 03/05/23 metoclopramide HCl 10 mg tablet 10 mg PO Q6H PRN nausea and 04/22/23 (Reglan) vomiting #30 tabs cefuroxime axetil 250 mg tablet 250 mg PO BID 7 days #14 tabs 05/02/23 ondansetron 4 mg disintegrating 4 mg PO Q6-8H PRN nausea and 05/02/23 tablet vomiting #20 tabs Allergies Allergy/AdvReac Type Severity Reaction Status Date / Time No Known Allergies Allergy Verified 05/01/23 20:42 [No Known Allergies*] Review of Systems Review of Systems: Yes all other systems are reviewed and are negative PMFSH Past Medical History Medical History Ectopic Pre-eclampsia HTN (hypertension) Social History Alcohol intake: never Patient Tobacco Use Status: Never used Tobacco Physical Exam Vital Signs: Vital Signs: Last Vital Signs Temp 98 F 05/10/23 01:10 Pulse 94 05/10/23 01:10 Resp 16 05/10/23 01:10 BP 146/91 H 05/10/23 01:10 Pulse Ox 100 05/10/23 01:10 O2 Del Method Room Air 05/10/23 01:10 BMI result Body Mass Index 21.6 Vital signs revealed an elevated blood pressure of 146/91 Exam General: Awake, alert , in moderate to severe distress secondary to abdominal pain Head: Normocephalic, atraumatic EENT: PERRL, Lids normal, sclera normal, conjunctiva normal, nose normal , ears normal, throat without erythema or exudates Neck: Supple, no adenopathy, no trachea midline or C-spine tenderness Lung: breath sounds symmetric, no wheezing, rales or rhonchi Chest: symmetric movement, nontender Heart: regular rate and rhythm, normal S1, S2 no murmurs or rubs Abdomen: Patient has diffuse abdominal tenderness with increased tenderness in the epigastric area and in the lower abdominal area, normal bowel sounds, voluntary guarding Back: no vertebral tenderness, no CVAT Extremities: no deformities, moves all extremities symmetrically Medical Decision Making Medical Decision Making MDM Narrative: 33 yo female with PMH of HTN,, preeclampsia, ectopic s/p surgery 3 years ago, he is 8 weeks based on gestational sac seen on ultrasound 04/22/2023 who presents to the emergency department by ambulance for evaluation of abdominal pain which started approximately 30 minutes prior to coming to the emergency department. The pain initially started epigastric area and became generalized throughout her entire abdomen. Vital signs did reveal an elevated blood pressure. Patient appear to be in distress secondary to her pain. Patient has diffuse abdominal tenderness with increased pain in the epigastric area and lower abdominal areas. Patient has not had any vaginal bleeding or discharge. Ultrasound on 04/22/2023 did reveal enlarged left ovary secondary to to ovarian cysts. Patient's blood type is A positive. Following evaluation was ordered: CBC, CMP, lipase, lactic acid, PT/INR, PTT, ethanol level, urine drug screen, urinalysis, quantitative beta-hCG, type and screen. Duplex ultrasound ordered to rule out torsion to confirm intrauterine . Patient was treated with morphine 4 mg IV, Phenergan 12.5 mg IV and normal saline x1 L. the patient's pain will need to be controlled prior to obtaining an ultrasound. 01:54 At the end of my shift, patient's laboratory evaluation ultrasound are pending. Patient's care was turned over to my colleague, Dr. Brown. Differential Diagnosis Differential Diagnoses: The differential diagnosis associated with the presentation includes Differential diagnosis includes was not limited to ectopic , ovarian torsion, miscarriage, appendicitis, pancreatitis, kidney stone Admission/Observation Consideration of admission/observation: Escalation of care including admission/observation considered Discharge Plan Discharge Clinical Impression: Abdominal pain Qualifiers: Weeks of gestation: 8 weeks Qualified Code(s): Z3A.08 - 8 weeks gestation of Patient Disposition: Still a Patient Prescriptions: No Action nitrofurantoin monohyd/m-cryst [Macrobid] 100 mg capsule 100 mg PO Q12H 5 Days Qty: 10 0RF Rx Instructions: must administer with a meal/food hydrocortisone [Anti-Itch (HC)] 1 % ointment 1 applic topical BID PRN (Reason: itching) Qty: 28.35 0RF Rx Instructions: apply to hemorrhoid lidocaine 4 % cream 1 applic topical BID PRN (Reason: pain) Qty: 5 0RF Rx Instructions: apply to hemorrhoid oxycodone 5 mg tablet 5 mg PO TID PRN (Reason: pain) Qty: 7 0RF amoxicillin 500 mg capsule 500 mg PO BID Qty: 14 0RF oxycodone-acetaminophen [Percocet] 5-325 mg tablet 1 tab PO TID PRN (Reason: pain) Qty: 5 0RF cefuroxime axetil 250 mg tablet 250 mg PO BID 7 Days Qty: 14 0RF ondansetron 4 mg tablet,disintegrating 4 mg PO Q6-8H PRN (Reason: nausea and vomiting) Qty: 20 0RF ketorolac 10 mg tablet 10 mg PO BID PRN (Reason: pain) Qty: 10 0RF acetaminophen 500 mg capsule 500 mg PO Q6H PRN (Reason: fever or pain) Qty: 20 0RF metoclopramide HCl [Reglan] 10 mg tablet 10 mg PO Q6H PRN (Reason: nausea and vomiting) Qty: 30 0RF
[2023-05-10 01:36] LABS: MANUAL DIFF FLAG NO
[2023-05-10 01:38] LABS: Basophils Percent Auto 0.1 % (0-2); Eosinophils Absolute Auto 0.1 X10*3/uL (0.0-0.4); Hematocrit 32.6 % (37.0-47.0); Hemoglobin 10.5 g/dl (12.0-16.0); Imm Gran Abs Auto 0.03 X10*3/uL (0.00-0.03); Imm Gran Pct Auto 0.3 % (0.0-0.4); Lymphocytes Percent Auto 19.8 % (20-40); Mean Corpuscular HGB Conc 32.2 g/dl (31.0-35.0); Mean Corpuscular Hemoglobin 25.4 pg (27.0-33.0); Mean Corpuscular Volume 78.9 fL (80.0-98.0); Mean Platelet Volume 9.3 fL (9.4-12.3); Monocytes Absolute Auto 0.9 X10*3/uL (0.1-1.2); Monocytes Percent Auto 9.2 % (2-11); Neutrophils Absolute Auto 7.1 x10*3/uL (2.0-8.3); Neutrophils Percent Auto 69.6 % (45-73); Platelet Count 294 X10*3/uL (160-400); Red Blood Count 4.13 X10*6/uL (4.20-5.50); Red Cell Distribution Width 14.6 % (11.0-16.0); White Blood Count 10.2 X10*3/uL (4.8-10.8)
[2023-05-10 01:46] LABS: Partial Thromboplastin Time 30.7 SEC (26.0-36.4)
[2023-05-10 01:47] LABS: Lactic Acid 1.5 mmol/L (0.5-2.0)
[2023-05-10] MEDS: Morphine Sulfate 4 MG/ML CARTRIDGE IVPUSH ×2 (01:48→02:20)
[2023-05-10] MEDS: 0.9 % Sodium Chloride 1,000 ML 999 ML IV (01:49)
[2023-05-10 01:58] LABS: HCG Quantitative 14646 mIU/mL
[2023-05-10 02:02] LABS: Alanine Aminotransferase 16 U/L (0-31); Albumin Level 3.5 g/dL (3.5-5.0); Alkaline Phosphatase 65 U/L (39-117); Anion Gap 9 (12-20); Aspartate Amino Transferase 13 U/L (5-31); Bilirubin Total 0.2 mg/dL (0.0-1.0); Blood Urea Nitrogen 6 mg/dL (9-16); Calcium 8.7 mg/dL (8.4-10.2); Carbon Dioxide 27 mmol/L (22-29); Chloride 103 mmol/L (96-108); Creatinine Clr Calc Pharmacy 105.3; Estimated Glomerular Filt Rate > 60; Ethanol < 10 mg/dL; Glucose Random 119 mg/dL (60-115); Lipase 17 U/L (8-78); Potassium 3.2 mmol/L (3.3-5.1); Sodium 136 mmol/L (135-145); Total Protein 6.2 g/dL (6.5-8.0)
--- NOTE | 2023-05-10 02:34 | PC.NURSE ---
pt medicated per mar ivf infusing. awaiting u/s. sats 98% on ra. call ling within reach.
[2023-05-10 03:41] VITALS: BP 151/99; PULSE 75; RESP 16; TEMP 36.7; O2SAT 97
[2023-05-10 03:45] LABS: Appearance Urine Clear; Color Urine Yellow; Glucose Urine UA Negative (Negative); Leukocyte Esterase Urine Negative (Negative); Nitrite Urine Negative (Negative); PH 7.5 (5.0-9.0); Specific Gravity - Urine <= 1.005 (1.005-1.025); Urine Blood Negative (Negative); Urine Ketones Negative (Negative); Urine Protein Negative (Neg-Trace)
[2023-05-10 03:51] LABS: Amphetamine Screen Urine Not Detected (Not Detect); Barbiturates, Urine Not Detected (Not Detect); Benzodiazepines Screen Urine POSITIVE (Not Detect); Cannabinoid Screen Urine POSITIVE (Not Detect); Cocaine Screen Urine Not Detected (Not Detect); Fentanyl, urine POSITIVE (Not Detect); Opiate Screen Urine POSITIVE (Not Detect); Phencyclidine Screen Urine Not Detected (Not Detect)
--- NOTE | 2023-05-10 04:00 | PC.NURSE ---
pt to u/s at this time.
[2023-05-10] MEDS: Morphine Sulfate 2 MG/ML CARTRIDGE 1 MG IVPUSH ×2 (04:47→05:55)
[2023-05-10] MEDS: ondansetron HCL 4 MG/2 ML VIAL IVPUSH (05:55)
[2023-05-10 06:02] VITALS: PULSE 87; RESP 16; O2SAT 97
--- NOTE | 2023-05-10 06:02 | PC.NURSE ---
pt states pain not improved now having nausea. pt medicated per aug.
--- NOTE | 2023-05-10 06:27 | PC.NURSE ---
report given to darien hollingsworth
[2023-05-10 08:15] VITALS: BP 126/84; PULSE 79; RESP 16; O2SAT 97
--- NOTE | 2023-05-10 08:56 | PC.NURSE ---
DILLON Hampton here to take pt
== END 2023-05-10 09:10 | disposition short-term general hospital (02) ==
PROVIDERS: Emergency Medicine Emergency Medical Services; Emergency Provider Emergency Medicine
DX: O26.91 Pregnancy related conditions, unspecified, first trimester (principal); R10.9 Unspecified abdominal pain; Z3A.08 8 weeks gestation of pregnancy; Z79.899 Other long term (current) drug therapy
CPT/HCPCS: 36415; 76801; 76817; 80053; 80307; 81003; 83605; 83690; 84702; 85025; 85610; 85730; 86850; 86900; 86901; 96361; 96374; 96375; 96376; 99285; J2270; J2405; J2550

== ENCOUNTER 2023-07-07 15:23 | Emergency (ER) | payer OTHER, SELFPAY ==
--- NOTE | ~2023-07-07 | US_ITS ---
EXAMINATION: US OBSTETRICAL ULTRASOUND CLINICAL INFORMATION: Heavy vaginal bleeding. Positive hCG. COMPARISON: Pelvic ultrasound 05/10/2023. LMP: Unknown. TECHNIQUE: Ultrasound of the maternal pelvis is performed using transabdominal and transvaginal transducers. Transvaginal imaging is performed due to inadequate visualization transabdominally. M-mode Doppler is also performed. FINDINGS: Anteverted uterus measuring 10 x 4.8 x 5 cm. No evidence of intrauterine gestational sac. Endometrium measures approximately up to 1.2 cm in thickness with heterogeneous content including mobile avascular debris that extend into the endocervical canal and vagina suggestive of blood products. Highly vascular observation in the fundal endometrium might represent an AVM. Ovaries are normal in morphology. The right ovary measures 2.1 x 1.3 x 2.1 cm (3 mL). The left ovary measures 2.7 x 2.2 x 2.8 cm (8.7 mL). There is a 1.7 x 1.7 x 1.4 cm simple appearing cyst in the left ovary which is almost certainly benign and for which no imaging follow-up is recommended. No suspicious adnexal mass. No significant free fluid. US/US OB pelvic and transvaginal IMPRESSION: Complex examination. Highly vascular observation in the uterine fundus extending to the endometrium, nonspecific but suggestive of an arteriovenous malformation. Additional differential consideration includes retained products of conception, although less favored in view of the degree of vascularity. Recommend GAME OPERATOR consultation to determine further management, characterization with an MRI of the pelvis could be helpful. Thickened endometrium with heterogeneous debris some of which are mobile suggestive of ongoing bleeding. This critical result was discussed with MADYSON Patterson at 07/07/2023 7:46 PM and it was ascertained that the content and urgency of the report was understood at the time of direct communication.
[2023-07-07 15:45] VITALS: BP 152/92; PULSE 85; RESP 18; TEMP 36.6; O2SAT 98; BMI 23.2
--- NOTE | 2023-07-07 15:45 | ED.PREGNANCY ---
HPI - General Chief complaint: General Medical Stated complaint: miscarriage? Time Seen by Provider: 07/08/23 01:31 Related Data Previous Rx's Medication Instructions Recorded hydrocortisone 1 % topical 1 applic topical BID PRN itching 04/14/20 ointment (Anti-Itch #28.35 grams (hydrocortisone)) lidocaine 4 % topical cream 1 applic topical BID PRN pain #5 04/14/20 grams nitrofurantoin 100 mg PO Q12H 5 days #10 caps 11/20/20 monohydrate/macrocrystals 100 mg capsule (Macrobid) oxycodone 5 mg tablet 5 mg PO TID PRN pain #7 tabs 04/04/21 amoxicillin 500 mg capsule 500 mg PO BID #14 caps 04/15/21 oxycodone-acetaminophen 5 mg-325 1 tab PO TID PRN pain #5 tabs 04/15/21 mg tablet (Percocet) acetaminophen 500 mg capsule 500 mg PO Q6H PRN fever or pain 03/05/23 #20 caps ketorolac 10 mg tablet 10 mg PO BID PRN pain #10 tabs 03/05/23 metoclopramide HCl 10 mg tablet 10 mg PO Q6H PRN nausea and 04/22/23 (Reglan) vomiting #30 tabs cefuroxime axetil 250 mg tablet 250 mg PO BID 7 days #14 tabs 05/02/23 ondansetron 4 mg disintegrating 4 mg PO Q6-8H PRN nausea and 05/02/23 tablet vomiting #20 tabs Allergies Allergy/AdvReac Type Severity Reaction Status Date / Time No Known Allergies Allergy Verified 05/01/23 20:42 [No Known Allergies*] [facility] Past Medical History Medical History Ectopic Pre-eclampsia HTN (hypertension) Social History Social History Alcohol intake: never Patient Tobacco Use Status: Never used Tobacco Advance Directives: No Advance Directives Information Provided: Yes Physical Exam Vital Signs: Vital Signs: Last Vital Signs Temp 97.8 F 07/08/23 01:09 Pulse 110 H 07/08/23 01:09 Resp 18 07/08/23 01:09 BP 165/104 H 07/08/23 01:09 Pulse Ox 100 07/08/23 01:09 O2 Del Method Room Air 07/08/23 01:09 BMI result Body Mass Index 23.2 Course Course Course Narrative: RMSerafin: 33 year-old w/ PMHx @ about 4mos gestation presenting to the ED c/o heavy vaginal bleeding w/clots & abdominal pain x today (8-10 pads since 8AM). Patient was seen in our ED on 05/10/23 for severe abdominal pain (8 wks gestation at that time w/gestational sac seen on US but no yolk sac or pole) was transferred to [facility] at that time & patient states they told her she likely having a miscarriage as hCG was down trending (not given any meds). however was lost to f/u, has not been seen or had labs since Apr. Labs, UA, US ordered Full HPI, ROS and PE to be performed by primary ED provider. 07/08/23--1150-- called and spoke with patient this morning about ultrasound results. Discussed needed very close follow-up with OBGYN. Patient admits she follows with [facility], but has not seen them in about 3 years. Recommended she call her OB & was also supplied with our OBGYN/women's health information. Recommended return to the ED if she can not be evaluated in the next 1-2 days Medical Decision Making Lab Data 07/08/23 02:03 07/07/23 17:03 Labs: Lab Results 07/07/23 07/08/23 Range/Units 17:03 02:03 WBC 11.6 H (4.8-10.8) X10*3/uL RBC 4.39 (4.20-5.50) X10*6/uL Hgb 11.1 L 10.7 L (12.0-16.0) g/dl Hct 34.1 L 32.5 L (37.0-47.0) % MCV 77.7 L (80.0-98.0) fL MCH 25.3 L (27.0-33.0) pg MCHC 32.6 (31.0-35.0) g/dl RDW 14.6 (11.0-16.0) % Plt Count 360 (160-400) X10*3/uL MPV 9.2 L (9.4-12.3) fL Immature Gran % (Auto) 0.3 (0.0-0.4) % Neut % (Auto) 61.7 (45-73) % Lymph % (Auto) 29.9 (20-40) % [place] % (Auto) 6.3 (2-11) % Eos % (Auto) 1.5 (0-4) % Baso % (Auto) 0.3 (0-2) % Lymph # (Auto) 3.5 (1.2-4.9) X10*3/uL [place] # (Auto) 0.7 (0.1-1.2) X10*3/uL Eos # (Auto) 0.2 (0.0-0.4) X10*3/uL Baso # (Auto) 0.0 (0.0-0.2) X10*3/uL Abs Immat Gran (auto) 0.03 (0.00-0.03) X10*3/uL Absolute Neuts (auto) 7.2 (2.0-8.3) x10*3/uL Absolute Nucleated RBC 0.000 (0.0-0.012) X10*3/uL Nucleated RBC % (auto) 0.0 (0.0-0.2) /100WBC PT 11.9 (11.1-13.3) SEC INR 1.0 (0.9-1.1) Sodium 138 (135-145) mmol/L Potassium 3.6 (3.3-5.1) mmol/L Chloride 102 (96-108) mmol/L Carbon Dioxide 28 (22-29) mmol/L Anion Gap 12 (12-20) BUN 14 (9-16) mg/dL Creatinine 0.86 (0.5-1.4) mg/dL Estim Creat Clear Calc 81.1 Estimated GFR > 60 Random Glucose 96 (60-115) mg/dL Calcium 9.1 (8.4-10.2) mg/dL Total Bilirubin 0.1 (0.0-1.0) mg/dL Direct Bilirubin < 0.2 (0.0-0.5) mg/dL AST 14 (5-31) U/L ALT 11 (0-31) U/L Alkaline Phosphatase 75 (39-117) U/L Total Protein 7.0 (6.5-8.0) g/dL Albumin 4.1 (3.5-5.0) g/dL Lipase 38 (8-78) U/L Beta HCG, Quant 522 mIU/mL Blood Type A Positive Discharge Plan Discharge Clinical Impression: Retained products of conception with hemorrhage Patient Disposition: Elopement Prescriptions: No Action nitrofurantoin monohyd/m-cryst [Macrobid] 100 mg capsule 100 mg PO Q12H 5 Days Qty: 10 0RF Rx Instructions: must administer with a meal/food hydrocortisone [Anti-Itch (HC)] 1 % ointment 1 applic topical BID PRN (Reason: itching) Qty: 28.35 0RF Rx Instructions: apply to hemorrhoid lidocaine 4 % cream 1 applic topical BID PRN (Reason: pain) Qty: 5 0RF Rx Instructions: apply to hemorrhoid oxycodone 5 mg tablet 5 mg PO TID PRN (Reason: pain) Qty: 7 0RF amoxicillin 500 mg capsule 500 mg PO BID Qty: 14 0RF oxycodone-acetaminophen [Percocet] 5-325 mg tablet 1 tab PO TID PRN (Reason: pain) Qty: 5 0RF cefuroxime axetil 250 mg tablet 250 mg PO BID 7 Days Qty: 14 0RF ondansetron 4 mg tablet,disintegrating 4 mg PO Q6-8H PRN (Reason: nausea and vomiting) Qty: 20 0RF ketorolac 10 mg tablet 10 mg PO BID PRN (Reason: pain) Qty: 10 0RF acetaminophen 500 mg capsule 500 mg PO Q6H PRN (Reason: fever or pain) Qty: 20 0RF metoclopramide HCl [Reglan] 10 mg tablet 10 mg PO Q6H PRN (Reason: nausea and vomiting) Qty: 30 0RF Discharge Date/Time: 07/08/23 04:20
[2023-07-07 17:08] LABS: MANUAL DIFF FLAG NO
[2023-07-07 17:14] LABS: Basophils Percent Auto 0.3 % (0-2); Eosinophils Absolute Auto 0.2 X10*3/uL (0.0-0.4); Eosinophils Percent Auto 1.5 % (0-4); Hematocrit 34.1 % (37.0-47.0); Hemoglobin 11.1 g/dl (12.0-16.0); Imm Gran Abs Auto 0.03 X10*3/uL (0.00-0.03); Imm Gran Pct Auto 0.3 % (0.0-0.4); Lymphocytes Absolute Auto 3.5 X10*3/uL (1.2-4.9); Lymphocytes Percent Auto 29.9 % (20-40); Mean Corpuscular HGB Conc 32.6 g/dl (31.0-35.0); Mean Corpuscular Hemoglobin 25.3 pg (27.0-33.0); Mean Corpuscular Volume 77.7 fL (80.0-98.0); Mean Platelet Volume 9.2 fL (9.4-12.3); Monocytes Absolute Auto 0.7 X10*3/uL (0.1-1.2); Monocytes Percent Auto 6.3 % (2-11); Neutrophils Absolute Auto 7.2 x10*3/uL (2.0-8.3); Neutrophils Percent Auto 61.7 % (45-73); Platelet Count 360 X10*3/uL (160-400); Red Blood Count 4.39 X10*6/uL (4.20-5.50); Red Cell Distribution Width 14.6 % (11.0-16.0); White Blood Count 11.6 X10*3/uL (4.8-10.8)
[2023-07-07 17:18] LABS: Prothrombin Time 11.9 SEC (11.1-13.3)
[2023-07-07 17:36] LABS: Alanine Aminotransferase 11 U/L (0-31); Albumin Level 4.1 g/dL (3.5-5.0); Alkaline Phosphatase 75 U/L (39-117); Anion Gap 12 (12-20); Aspartate Amino Transferase 14 U/L (5-31); Bilirubin Direct < 0.2 mg/dL (0.0-0.5); Bilirubin Total 0.1 mg/dL (0.0-1.0); Blood Urea Nitrogen 14 mg/dL (9-16); Calcium 9.1 mg/dL (8.4-10.2); Carbon Dioxide 28 mmol/L (22-29); Chloride 102 mmol/L (96-108); Creatinine Clr Calc Pharmacy 81.1; Estimated Glomerular Filt Rate > 60; Glucose Random 96 mg/dL (60-115); HCG Quantitative 522 mIU/mL; Lipase 38 U/L (8-78); Potassium 3.6 mmol/L (3.3-5.1); Sodium 138 mmol/L (135-145)
[2023-07-08 01:09] VITALS: BP 165/104; PULSE 110; RESP 18; TEMP 36.6; O2SAT 100
[2023-07-08 02:20] LABS: Hematocrit 32.5 % (37.0-47.0); Hemoglobin 10.7 g/dl (12.0-16.0)
--- NOTE | 2023-07-08 04:20 | PC.NURSE ---
pt eloped per registration
== END 2023-07-08 04:20 | disposition left against medical advice (07) ==
PROVIDERS: Physician Assistant; Student in an Organized Health Care Education/Training Program; Emergency Provider Emergency Medicine
DX: O03.4 Incomplete spontaneous abortion without complication (principal)
CPT/HCPCS: 36415; 76801; 76817; 80048; 80076; 83690; 84702; 85014; 85018; 85025; 85610; 86900; 86901; 99284

== ENCOUNTER 2023-09-18 10:36 | Emergency (ER) | payer OTHER, SELFPAY ==
[2023-09-18 11:19] VITALS: BP 133/82; PULSE 112; RESP 16; TEMP 37.6; O2SAT 98; BMI 21.5
--- NOTE | 2023-09-18 11:25 | ED_ITS ---
HPI - General Adult General Chief complaint: General Medical Stated complaint: SICK X 1 DAY NAUSEA VOMITING Time Seen by Provider: 09/18/23 14:25 Source: patient Mode of arrival: ambulatory Limitations: no limitations History of Present Illness HPI narrative: Patient is a 33 year old assigned female at with no reported medical history presenting to the emergency department today with nausea, vomiting, and headache. Patient states that over the last 2 days she has felt generally unwell with nausea, vomiting, and headaches. Patient states that her child was recently diagnosed with influenza. Patient denies any dizziness, lightheadedness, abdominal pain, fever, chills, blurry vision, double vision, loss of vision, chest pain, difficulty breathing, shortness of breath, back pain, night sweats, pain with urination, increased urinary frequency, increased urinary urgency, blood in her urine or stool, syncope or a near syncopal episode, recent trauma or falls, bowel incontinence, bladder incontinence, bowel retention, bladder retention, or any other complaints at this time. Onset (ago): day(s) (2) Severity: mild Severity scale (1-10): 3 Relieving factors: none Exacerbating factors: none Associated symptoms: headaches and nausea/vomiting Treatments prior to arrival: none Related Data Previous Rx's ?Medication ?Instructions ?Recorded hydrocortisone 1 % topical 1 applic topical BID PRN itching 04/14/20 ointment (Anti-Itch #28.35 grams (hydrocortisone)) lidocaine 4 % topical cream 1 applic topical BID PRN pain #5 04/14/20 grams nitrofurantoin 100 mg PO Q12H 5 days #10 caps 11/20/20 monohydrate/macrocrystals 100 mg capsule (Macrobid) oxycodone 5 mg tablet 5 mg PO TID PRN pain #7 tabs 04/04/21 amoxicillin 500 mg capsule 500 mg PO BID #14 caps 04/15/21 oxycodone-acetaminophen 5 mg-325 1 tab PO TID PRN pain #5 tabs 04/15/21 mg tablet (Percocet) acetaminophen 500 mg capsule 500 mg PO Q6H PRN fever or pain 03/05/23 #20 caps ketorolac 10 mg tablet 10 mg PO BID PRN pain #10 tabs 03/05/23 metoclopramide HCl 10 mg tablet 10 mg PO Q6H PRN nausea and 04/22/23 (Reglan) vomiting #30 tabs cefuroxime axetil 250 mg tablet 250 mg PO BID 7 days #14 tabs 05/02/23 ondansetron 4 mg disintegrating 4 mg PO Q6-8H PRN nausea and 05/02/23 tablet vomiting #20 tabs penicillin V potassium 500 mg 500 mg PO BID 10 days #20 tabs 09/18/23 tablet Allergies Allergy/AdvReac Type Severity Reaction Status Date / Time No Known Allergies Allergy Verified 09/18/23 11:23 [No Known Allergies*] Review of Systems Constitutional: Constitutional: Reports no additional constitutional complaints, Denies chills, Denies fever(s), Reports headache(s) and Denies night sweats Eyes: Eyes: Reports no additional eye complaints, Denies blurry vision, Denies change in vision, Denies diplopia, Denies eye discharge, Denies loss of vision and Denies eye pain ENT: Denies dizziness and Reports headache(s) Cardiovascular: Cardiovascular: Reports no additional cardiovascular complaints, Denies chest pain, Denies lightheadedness, Denies Loss of Consciousness and Denies dyspnea Respiratory: Respiratory: Reports no additional respiratory complaints and Denies dyspnea Gastrointestinal: Gastrointestinal: Reports no additional gastrointestinal complaints, Denies abdominal pain, Denies melena, Denies hematochezia, Denies change in bowel habits, Denies change in stool character, Reports nausea and Reports vomiting Genitourinary: Genitourinary: Denies hematuria, Denies urinary frequency, Denies dysuria, Denies urinary incontinence, Denies urinary hesitancy and Denies urinary urgency Musculoskeletal: Musculoskeletal: Reports no additional musculoskeletal co mplaints, Denies numbness and Denies tingling Neurologic: Denies dizziness, Reports headache(s), Denies loss of vision, Denies numbness and Denies tingling Psychiatric: Psychiatric: Reports no additional psychiatric complaints Endocrine: Endocrine: Reports no additional endocrine complaints Hematologic/Lymphatic: Hematologic/Lymphatic: Reports no additional hematologic/lymphatic complaints Allergic/Immunologic: Allergic/Immunologic: Reports no additional allergic/immunologic complaints PMFSH Past Medical History Attestation statement: The following information was validated with the patient. Source: old records reviewed and nursing notes reviewed Medical History Ectopic Pre-eclampsia HTN (hypertension) Social History Social History Alcohol intake: never Patient Tobacco Use Status: Never used Tobacco Advance Directives: No Advance Directives Information Provided: No Physical Exam ED Vital Signs: Vital Signs - 24 hr 09/18/23 11:19 09/18/23 14:28 Temperature 99.7 F 100.4 F Pulse Rate 112 H 88 Respiratory Rate 16 16 Blood Pressure 133/82 147/90 H Pulse Oximetry 98 98 Oxygen Delivery Method Room Air Room Air BMI result Body Mass Index 21.5 Const General: cooperative, no acute distress, alert and awake Nutritional Appearance: well nourished Orientation/consciousness: patient oriented x3 Limitations: no limitations HENMT Head: Yes normal to inspection and Yes atraumatic Ears: hearing grossly normal bilaterally and external ears normal General nose exam: Normal external nose present, no nasal discharge noted and no epistaxis Face and sinus: Yes normal facial exam, No abrasion and No laceration Mouth: Normal oral and palatal mucosa present, no drooling and no muffled voice Eyes General: appearance normal, both eyes and all related structures Periorbital: periorbital findings normal Eyelids: Yes eyelids normal Conjunctivae: conjunctivae normal Pupils: Equal, round and reactive pupils present EOM: EOMs intact bilaterally Neck Neck: Yes normal visual inspection, Yes full ROM and Yes no lymphadenopathy Chest Chest palpation & inspection: normal inspection of the chest Resp Effort & Inspection: normal respiratory effort and able to speak in complete sentences GI Inspection: Yes normal to inspection Neuro General: patient oriented x3 and moves all extremities Cranial nerves: Yes Equal, round and reactive pupils present Cognition (Neuro): normal cognition Motor exam (neuro): 5/5 motor strength present throughout Sensory Exam: Normal double simultaneous stimulation for sensation Coordination: [id number] test normal Extrem General: Yes normal to inspection, Yes full ROM and Yes capillary refill normal Psych Appearance: grossly normal Mental Status: mental status grossly normal Affect: normal affect Attitude: cooperative Thought process: Normal thought process present Thought content: Normal thought content present Insight: Good insight present (Psych) Course Course Course Narrative: RME performed by Deena Vincent PA-C. Patient is a 33 year old assigned female at presenting to the emergency department with nausea, vomiting, and recent flu exposure. Detailed physical exam and review of systems are deferred to the bowstring maker. Swabs ordered. Patient placed back in the waiting room pending room availability and results. Medical Decision Making Medical Decision Making [facility] Narrative: Patient is a 33 year old assigned female at with no reported medical history presenting to the emergency department today with nausea, vomiting, and headaches. Patient's physical exam was unremarkable. Patient's strep test was positive. Patient's COVID-19, influenza, and RSV tests were negative. I explained my physical exam findings as well as all test results to the patient. I answered all questions asked by the patient. I stressed the importance of the patient taking her medication as prescribed. I stressed the importance of the patient following up with her primary care provider. I stressed the importance of the patient returning to the emergency department immediately if her symptoms were to worsen or if she were to develop any dizziness, shortness of breath, difficulty breathing, chest pain, blurry vision, loss of vision, nausea, vomiting, abdominal pain, fever, chills, back pain, or any other complaints. Patient verbalized agreement and understanding with this treatment plan and discharge. Differential Diagnosis Differential Diagnoses: The differential diagnosis associated with the presentation includes Nausea Vomiting Strep pharyngitis Influenza COVID-19 Admission/Observation Consideration of admission/observation: Escalation of care including admission/observation considered Patient would have been admitted to the hospital had her work up had any findings where hospital admission was appropriate and her clinical presentation warranted hospital admission. Lab Data [facility] Lab Attestation statement: I reviewed the patient's lab results. My interpretation of these results are in the [facility] Rationale portion of this note. Labs: Lab Results 09/18/23 Range/Units 13:05 Influenza Type A (PCR) NEGATIVE (Negative) Influenza Type B (PCR) NEGATIVE (Negative) RSV RNA Qual (PCR) NEGATIVE (Negative) SARS-CoV-2 RNA (RT-PCR) NEGATIVE (Negative) S. pyogenes GrpA JOHANNY Positive A (Negative) Prescription Management I considered prescription management with: Antibiotic (patient prescribed an antibiotic for strep pharyngitis) Discharge Plan Discharge Clinical Impression: Strep pharyngitis Patient Disposition: Home, Self-Care Instructions: Strep Throat (DC) Additional Instructions: Follow up with your primary care provider. Return to the emergency department immediately if your symptoms worsen or if you develop any dizziness, shortness of breath, difficulty breathing, chest pain, blurry vision, loss of vision, nausea, vomiting, abdominal pain, fever, chills, back pain, or any other complaints. Prescriptions: New penicillin V potassium 500 mg tablet 500 mg PO BID 10 Days Qty: 20 0RF No Action nitrofurantoin monohyd/m-cryst [Macrobid] 100 mg capsule 100 mg PO Q12H 5 Days Qty: 10 0RF Rx Instructions: must administer with a meal/food hydrocortisone [Anti-Itch (HC)] 1 % ointment 1 applic topical BID PRN (Reason: itching) Qty: 28.35 0RF Rx Instructions: apply to hemorrhoid lidocaine 4 % cream 1 applic topical BID PRN (Reason: pain) Qty: 5 0RF Rx Instructions: apply to hemorrhoid oxycodone 5 mg tablet 5 mg PO TID PRN (Reason: pain) Qty: 7 0RF amoxicillin 500 mg capsule 500 mg PO BID Qty: 14 0RF oxycodone-acetaminophen [Percocet] 5-325 mg tablet 1 tab PO TID PRN (Reason: pain) Qty: 5 0RF cefuroxime axetil 250 mg tablet 250 mg PO BID 7 Days Qty: 14 0RF ondansetron 4 mg tablet,disintegrating 4 mg PO Q6-8H PRN (Reason: nausea and vomiting) Qty: 20 0RF ketorolac 10 mg tablet 10 mg PO BID PRN (Reason: pain) Qty: 10 0RF acetaminophen 500 mg capsule 500 mg PO Q6H PRN (Reason: fever or pain) Qty: 20 0RF metoclopramide HCl [Reglan] 10 mg tablet 10 mg PO Q6H PRN (Reason: nausea and vomiting) Qty: 30 0RF Referrals: [facility] [place] [facility] [place] [Provider Group] (Call to establish and follow up with a [facility] care provider. If you already have a primary care provider, please follow up with them.) [facility] [place] [facility] [place] [facility] [Provider Group] [facility] [place] [facility] [place] Primary Care[facility] [Provider Group] Stand Alone Forms: Work/School Release Interventions: ED Discharge Assessment Last Done: 09/18/23 14:28 Discharge Date/Time: 09/18/23 14:37 Print Language: Maltese
[2023-09-18 13:45] LABS: IDNOW Serial# 08D9AD1C; Strep A Nucleic Acid Positive (Negative)
[2023-09-18 13:58] LABS: Influenza A PCR NEGATIVE (Negative); Influenza B PCR NEGATIVE (Negative); Resp Syncy Virus RNA Qual PCR NEGATIVE (Negative); SARS COV2 PCR INHOUSE NEGATIVE (Negative)
[2023-09-18 14:28] VITALS: BP 147/90; PULSE 88; RESP 16; TEMP 38; O2SAT 98
== END 2023-09-18 14:37 | disposition home or self-care (01) ==
LOC: HO.ED 14:31
PROVIDERS: Physician Assistant Medical; Emergency Provider Emergency Medicine
DX: J02.0 Streptococcal pharyngitis (principal); I10 Essential (primary) hypertension
CPT/HCPCS: 0241U; 87651; 99282; 99283

== ENCOUNTER 2023-12-09 15:28 | Emergency (ER) | payer OTHER, SELFPAY ==
[2023-12-09 15:36] VITALS: BP 152/88; PULSE 80; O2SAT 97
[2023-12-09 15:38] VITALS: BP 150/72; PULSE 52; RESP 18; TEMP 37.2; O2SAT 100; BMI 27.1
--- NOTE | 2023-12-09 15:41 | ED_ITS ---
HPI - General Adult General Chief complaint: Headache Stated complaint: headache x 1 day Time Seen by Provider: 12/09/23 16:44 Source: patient Mode of arrival: ambulatory Limitations: no limitations History of Present Illness ED Provider: Deena Vincent PA-C HPI narrative: 33-year-old female presents for evaluation of worsening headache since yesterday. Also complaining of chills, nausea, 1 small episode of vomiting, runny nose, and some dizziness upon standing up. Headache is in the back of her head, denies vision changes, states she feels better with the lights dimmed. Has a history of migraines when she was younger and says they were similar but she has not had the chills with them before. She took 1000mg of tylenol earlier without any improvement. Has been eating and drinking well. Denies abdominal pain. Onset (ago): day(s) (1) Location: head Pain Consistency: constant Relieving factors: other (dark room ) Associated symptoms: fever/chills (chills only) and nausea/vomiting Related Data Previous Rx's ?Medication ?Instructions ?Recorded hydrocortisone 1 % topical 1 applic topical BID PRN itching 04/14/20 ointment (Anti-Itch #28.35 grams (hydrocortisone)) lidocaine 4 % topical cream 1 applic topical BID PRN pain #5 04/14/20 grams nitrofurantoin 100 mg PO Q12H 5 days #10 caps 11/20/20 monohydrate/macrocrystals 100 mg capsule (Macrobid) oxycodone 5 mg tablet 5 mg PO TID PRN pain #7 tabs 04/04/21 amoxicillin 500 mg capsule 500 mg PO BID #14 caps 04/15/21 oxycodone-acetaminophen 5 mg-325 1 tab PO TID PRN pain #5 tabs 04/15/21 mg tablet (Percocet) acetaminophen 500 mg capsule 500 mg PO Q6H PRN fever or pain 03/05/23 #20 caps ketorolac 10 mg tablet 10 mg PO BID PRN pain #10 tabs 03/05/23 metoclopramide HCl 10 mg tablet 10 mg PO Q6H PRN nausea and 04/22/23 (Reglan) vomiting #30 tabs cefuroxime axetil 250 mg tablet 250 mg PO BID 7 days #14 tabs 05/02/23 ondansetron 4 mg disintegrating 4 mg PO Q6-8H PRN nausea and 05/02/23 tablet vomiting #20 tabs penicillin V potassium 500 mg 500 mg PO BID 10 days #20 tabs 09/18/23 tablet Allergies Allergy/AdvReac Type Severity Reaction Status Date / Time No Known Allergies Allergy Verified 12/09/23 15:43 [No Known Allergies*] Review of Systems Constitutional: Constitutional: Reports no additional constitutional complaints, Denies chills, Denies fever(s), Reports headache(s) and Denies night sweats Eyes: Eyes: Reports no additional eye complaints, Denies blurry vision, Denies change in vision, Denies diplopia, Denies eye discharge, Denies loss of vision and Denies eye pain ENT: Denies dizziness and Reports headache(s) Cardiovascular: Cardiovascular: Reports no additional cardiovascular complaints, Denies chest pain, Denies lightheadedness, Denies Loss of Consciousness and Denies dyspnea Respiratory: Respiratory: Reports no additional respiratory complaints and Denies dyspnea Gastrointestinal: Gastrointestinal: Reports no additional gastrointestinal complaints, Denies abdominal pain, Denies melena, Denies hematochezia, Denies change in bowel habits, Denies change in stool character, Reports nausea and Reports vomiting Genitourinary: Genitourinary: Denies hematuria, Denies urinary frequency, Denies dysuria, Denies urinary incontinence, Denies urinary hesitancy and Denies urinary urgency Musculoskeletal: Musculoskeletal: Reports no additional musculoskeletal complaints, Denies numbness and Denies tingling Neurologic: Denies dizziness, Reports headache(s), Denies loss of vision, Denies numbness and Denies tingling Psychiatric: Psychiatric: Reports no additional psychiatric complaints Endocrine: Endocrine: Reports no additional endocrine complaints Hematologic/Lymphatic: Hematologic/Lymphatic: Reports no additional hematologic/lymphatic complaints Allergic/Immunologic: Allergic/Immunologic: Reports no additional allergic/i mmunologic complaints PMFSH Past Medical History Attestation statement: The following information was validated with the patient. Source: old records reviewed and nursing notes reviewed Medical History Ectopic Pre-eclampsia HTN (hypertension) Social History Social History Alcohol intake: never Patient Tobacco Use Status: Never used Tobacco Use of substances other than those prescribed or required for medical reasons: No Advance Directives: No Advance Directives Information Provided: No Do you have a plan to hurt others: No Plan Physical Exam ED Vital Signs: Vital Signs - 24 hr 12/09/23 15:38 12/09/23 16:53 12/09/23 18:59 Temperature 99 F 97.9 F 97.9 F Pulse Rate 52 52 52 Respiratory Rate 18 20 20 Blood Pressure 150/72 H 135/79 135/79 Pulse Oximetry 100 100 100 Oxygen Delivery Method Room Air Room Air Room Air BMI result Body Mass Index 27.1 Const General: cooperative, no acute distress, alert and awake Nutritional Appearance: well nourished Orientation/consciousness: patient oriented x3 Limitations: no limitations HENMT Head: Yes normal to inspection and Yes atraumatic Ears: hearing grossly normal bilaterally and external ears normal General nose exam: Normal external nose present, no nasal discharge noted and no epistaxis Face and sinus: Yes normal facial exam, No abrasion and No laceration Mouth: Normal oral and palatal mucosa present, no drooling and no muffled voice Eyes General: appearance normal, both eyes and all related structures Periorbital: periorbital findings normal Eyelids: Yes eyelids normal Conjunctivae: conjunctivae normal Pupils: Equal, round and reactive pupils present EOM: EOMs intact bilaterally Neck Neck: Yes normal visual inspection, Yes full ROM and Yes no lymphadenopathy Chest Chest palpation & inspection: normal inspection of the chest Resp Effort & Inspection: normal respiratory effort and able to speak in complete sentences GI Inspection: Yes normal to inspection Neuro General: patient oriented x3 and moves all extremities Cranial nerves: Yes Equal, round and reactive pupils present Cognition (Neuro): normal cognition Motor exam (neuro): 5/5 motor strength present throughout Sensory Exam: Normal double simultaneous stimulation for sensation Coordination: [id number] test normal Extrem General: Yes normal to inspection, Yes full ROM and Yes capillary refill normal Psych Appearance: grossly normal Mental Status: mental status grossly normal Affect: normal affect Attitude: cooperative Thought process: Normal thought process present Thought content: Normal thought content present Insight: Good insight present (Psych) Course Course Course Narrative: This is a Rapid Medical Examination (RME) performed by Marianna Medellin PA-C in triage. Full HPI, ROS, assessment and treatment plan per primary provider in the Main ED. 33 yo female BIBA for eval of headache, chills, feeling light headed, and nausea w/o vomiting which began this morning. took 1000mg tylenol without relief. no known sick contacts. LMP currently. posterior oropharynx wnl. abd soft, ND/NT. Plan: viral and strep swabs ordered. Medications Administered Discontinued Medications Generic Name Dose Route Start Last Admin Trade Name Edgardo PRN Reason Stop Dose Admin Diphenhydramine HCl 25 mg 12/09/23 17:14 12/09/23 18:03 Diphenhydramine Hcl 50 Mg/Ml Vial IVPUSH 12/09/23 17:15 25 mg ONCE ONE Administration Sodium Chloride 1,000 mls @ 999 mls/hr 12/09/23 17:15 12/09/23 18:45 Ns IV 12/09/23 18:15 Infused .Q1H1M RAMBO Infusion Ketorolac Tromethamine 15 mg 12/09/23 17:14 12/09/23 18:02 Ketorolac Tromethamine 15 Mg/Ml Vial IVPUSH 12/09/23 17:15 15 mg ONCE ONE Administration Ondansetron HCl 4 mg 12/09/23 17:14 12/09/23 18:03 Ondansetron Hcl 4 Mg/2 Ml Vial IVPUSH 12/09/23 17:15 4 mg ONCE ONE Administration Medical Decision Making Medical Decision Making MDM Narrative: Patient is a 33 year old assigned female at with a history of HTN and migraines presenting to the emergency department today with a headache, nausea, and vomiting. Patient's physical exam was unremarkable. I explained my physical exam findings to the patient. I answered all questions asked by the patient. Patient received IV pain medication and anti-emetics which she stated helped her symptoms significantly. I stressed the importance of the patient taking her medication as directed (either prescribed or as the over the counter packaging recommends). I stressed the importance of the patient following up with her [place] care provider. I stressed the importance of the patient returning to the emergency department immediately if her symptoms were to worsen or if she were to develop any dizziness, shortness of breath, difficulty breathing, chest pain, blurry vision, loss of vision, nausea, vomiting, abdominal pain, fever, chills, back pain, or any other complaints. Patient verbalized agreement and understanding with this treatment plan and discharge. Differential Diagnosis Differential Diagnoses: The differential diagnosis associated with the pres entation includes Migraine Flu COVID-19 unspecified viral URI dehydration Admission/Observation Consideration of admission/observation: Escalation of care including admission/observation considered Patient would have been admitted to the hospital had her work up had any findings where hospital admission was appropriate and her clinical presentation warranted hospital admission. Lab Data MDM Lab Attestation statement: I reviewed the patient's lab results. My interpretation of these studies and their corresponding values is that they are grossly normal. Labs: Lab Results 12/09/23 12/09/23 Range/Units 15:55 15:56 Influenza Type A (PCR) NEGATIVE (Negative) Influenza Type B (PCR) NEGATIVE (Negative) RSV RNA Qual (PCR) NEGATIVE (Negative) SARS-CoV-2 RNA (RT-PCR) NEGATIVE (Negative) S. pyogenes GrpA JOHANNY Negative (Negative) Tests considered The following testing was considered but not selected: I considered obtaining a CT of the head however, the patient's current clinical presentation did not warrant it. I discussed this with the patient who verbaliz ed understanding and agreement. Critical Care Time Critical Care Time Critical Care Time: Yes Total Critical Care Time: 31 Attestation: I spent 31 minutes of Critical Care Time with this patient. This does not include time spent on separately reported billable procedures. Discharge Plan Discharge Clinical Impression: Migraine Patient Disposition: Home, Self-Care Instructions: Migraine Headache (ED) Additional Instructions: Follow up with your primary care provider. Return to the emergency department immediately if your symptoms worsen or if you develop any dizziness, shortness of breath, difficulty breathing, chest pain, blurry vision, loss of vision, nausea, vomiting, abdominal pain, fever, chills, back pain, or any other complaints. Prescriptions: No Action nitrofurantoin monohyd/m-cryst [Macrobid] 100 mg capsule 100 mg PO Q12H 5 Days Qty: 10 0RF Rx Instructions: must administer with a meal/food hydrocortisone [Anti-Itch (HC)] 1 % ointment 1 applic topical BID PRN (Reason: itching) Qty: 28.35 0RF Rx Instructions: apply to hemorrhoid lidocaine 4 % cream 1 applic topical BID PRN (Reason: pain) Qty: 5 0RF Rx Instructions: apply to hemorrhoid oxycodone 5 mg tablet 5 mg PO TID PRN (Reason: pain) Qty: 7 0RF amoxicillin 500 mg capsule 500 mg PO BID Qty: 14 0RF oxycodone-acetaminophen [Percocet] 5-325 mg tablet 1 tab PO TID PRN (Reason: pain) Qty: 5 0RF cefuroxime axetil 250 mg tablet 250 mg PO BID 7 Days Qty: 14 0RF ondansetron 4 mg tablet,disintegrating 4 mg PO Q6-8H PRN (Reason: nausea and vomiting) Qty: 20 0RF penicillin V potassium 500 mg tablet 500 mg PO BID 10 Days Qty: 20 0RF ketorolac 10 mg tablet 10 mg PO BID PRN (Reason: pain) Qty: 10 0RF acetaminophen 500 mg capsule 500 mg PO Q6H PRN (Reason: fever or pain) Qty: 20 0RF metoclopramide HCl [Reglan] 10 mg tablet 10 mg PO Q6H PRN (Reason: nausea and vomiting) Qty: 30 0RF Referrals: [facility] [place] Family Medicine [Provider Group] (Call to establish and follow up with a primary care provider. If you already have a primary care provider, please follow up with them.) [facility] Primary [facility] [Provider Group] [facility] [Provider Group] Stand Alone Forms: Work/School Release Interventions: ED Discharge Assessment Last Done: 12/09/23 18:59 Discharge Date/Time: 12/09/23 19:00 Print Language: Romanian
[2023-12-09 16:22] LABS: IDNOW Serial# 58CA691E; Strep A Nucleic Acid Negative (Negative)
[2023-12-09 16:41] LABS: Influenza A PCR NEGATIVE (Negative); Influenza B PCR NEGATIVE (Negative); Resp Syncy Virus RNA Qual PCR NEGATIVE (Negative); SARS COV2 PCR INHOUSE NEGATIVE (Negative)
[2023-12-09 16:53] VITALS: BP 135/79; PULSE 52; RESP 20; TEMP 36.6; O2SAT 100
[2023-12-09] MEDS: 0.9 % Sodium Chloride 1,000 ML 999 ML IV (18:02)
[2023-12-09] MEDS: Ketorolac Tromethamine 15 MG/ML VIAL IVPUSH (18:02)
[2023-12-09] MEDS: ondansetron HCL 4 MG/2 ML VIAL IVPUSH (18:03)
[2023-12-09] MEDS: diphenhydrAMINE HCL 50 MG/ML VIAL 25 MG IVPUSH (18:03)
[2023-12-09 18:59] VITALS: BP 135/79; PULSE 52; RESP 20; TEMP 36.6; O2SAT 100
== END 2023-12-09 19:00 | disposition home or self-care (01) ==
PROVIDERS: Physician Assistant Medical; Emergency Provider Emergency Medicine
DX: G43.909 Migraine, unspecified, not intractable, without status migrainosus (principal); R68.83 Chills (without fever); R11.2 Nausea with vomiting, unspecified; R42 Dizziness and giddiness; I10 Essential (primary) hypertension; Z03.818 Encounter for observation for suspected exposure to other biological agents ruled out
CPT/HCPCS: 0241U; 87651; 96361; 96374; 96375; 99284; J1200; J1885; J2405

== ENCOUNTER 2024-02-06 15:13 | Emergency (ER) | payer OTHER, SELFPAY ==
--- NOTE | ~2024-02-06 | US_ITS ---
EXAMINATION: US OBSTETRICAL <14 WEEKS ULTRASOUND OB TRANSVAGINAL CLINICAL INFORMATION: . Pain. LMP: 12/03/2023, corresponding to a gestational age of 9 weeks 2 days, SHEREE 09/08/2024 COMPARISON: 07/07/2023 TECHNIQUE: Real-time ultrasound was performed transabdominally and transvaginally . FINDINGS: The uterus is anteverted in position. Within the endometrial cavity is a well formed gestation sac. A yolk sac is present with an inner diameter of 3 mm, normal. The crown-rump length of 1.54 cm corresponds to a menstrual age of 8 weeks 0 days. This yields an estimated date of delivery of 09/17/2024. The heart beat is regular and normal rate measuring 167 beats per minute. Cervix is long (3.7 cm) and closed. The right ovary measures 3.3 x 2.2 x 4.3 cm and contains a 1.7 x 1.9 x 9 cm corpus luteum. A separate 2 x 1.8 x 1.5 cm simple appearing ovarian cyst is also noted., The left ovary measures 2 x 3.2 x 1.5 cm and is unremarkable. OTHER SIGNIFICANT FINDINGS: No intraperitoneal free fluid. US/US OB <= 14 weeks fetus IMPRESSION: Single viable intrauterine estimated to be 8 weeks 0 days menstrual age. Estimated date of delivery is 09/17/2024. No suspicious abnormalities. Electronically signed by: Sunday Carmona MD 02/06/2024 09:57 PM EDT
--- NOTE | ~2024-02-06 | US_ITS ---
EXAMINATION: US OBSTETRICAL <14 WEEKS ULTRASOUND OB TRANSVAGINAL CLINICAL INFORMATION: . Pain. LMP: 12/03/2023, corresponding to a gestational age of 9 weeks 2 days, SHEREE 09/08/2024 COMPARISON: 07/07/2023 TECHNIQUE: Real-time ultrasound was performed transabdominally and transvaginally . FINDINGS: The uterus is anteverted in position. Within the endometrial cavity is a well formed gestation sac. A yolk sac is present with an inner diameter of 3 mm, normal. The crown-rump length of 1.54 cm corresponds to a menstrual age of 8 weeks 0 days. This yields an estimated date of delivery of 09/17/2024. The heart beat is regular and normal rate measuring 167 beats per minute. Cervix is long (3.7 cm) and closed. The right ovary measures 3.3 x 2.2 x 4.3 cm and contains a 1.7 x 1.9 x 9 cm corpus luteum. A separate 2 x 1.8 x 1.5 cm simple appearing ovarian cyst is also noted., The left ovary measures 2 x 3.2 x 1.5 cm and is unremarkable. OTHER SIGNIFICANT FINDINGS: No intraperitoneal free fluid. US/US OB transvaginal IMPRESSION: Single viable intrauterine estimated to be 8 weeks 0 days menstrual age. Estimated date of delivery is 09/17/2024. No suspicious abnormalities. Electronically signed by: Sunday Carmona MD 02/06/2024 09:57 PM EDT
[2024-02-06 15:33] VITALS: BP 154/76; PULSE 52; RESP 18; TEMP 36.6; O2SAT 100; BMI 22.3
--- NOTE | 2024-02-06 15:33 | ED_ITS ---
HPI - Abdominal Pain General Chief Complaint: Nausea/Vomiting/Diarrhea Stated Complaint: Vomiting/+preg test Time Seen by Provider: 02/06/24 18:03 Source: patient Mode of arrival: ambulatory Limitations: no limitations History of Present Illness ED Provider: Deena Vincent PA-C HPI narrative: Patient is a 33 year old assigned female at with a history of preeclampsia presenting to the emergency department today with 5 days of nausea, vomiting, and concern for . Patient states that over the last 5 days she has had nausea and vomiting. Patient states that she has 4 children and all of her previous pregnancies she has had preeclampsia with. Patient states that she took a test at home that was positive but has not confirmed that she is with a provider. Patient denies any dizziness, lightheadedness, abdominal pain, fever, chills, blurry vision, double vision, loss of vision, chest pain, difficulty breathing, shortness of breath, back pain, night sweats, pain with urination, increased urinary frequency, increased urinary urgency, blood in her urine or stool, syncope or a near syncopal episode, recent trauma or falls, bowel incontinence, bladder incontinence, or any other complaints at this time. Exacerbating factors: nothing Relieving factors: nothing Related Data Previous Rx's ?Medication ?Instructions ?Recorded hydrocortisone 1 % topical 1 applic topical BID PRN itching 04/14/20 ointment (Anti-Itch #28.35 grams (hydrocortisone)) lidocaine 4 % topical cream 1 applic topical BID PRN pain #5 04/14/20 grams nitrofurantoin 100 mg PO Q12H 5 days #10 caps 11/20/20 monohydrate/macrocrystals 100 mg capsule (Macrobid) oxycodone 5 mg tablet 5 mg PO TID PRN pain #7 tabs 04/04/21 amoxicillin 500 mg capsule 500 mg PO BID #14 caps 04/15/21 oxycodone-acetaminophen 5 mg-325 1 tab PO TID PRN pain #5 tabs 04/15/21 mg tablet (Percocet) acetaminophen 500 mg capsule 500 mg PO Q6H PRN fever or pain 03/05/23 #20 caps ketorolac 10 mg tablet 10 mg PO BID PRN pain #10 tabs 03/05/23 metoclopramide HCl 10 mg tablet 10 mg PO Q6H PRN nausea and 04/22/23 (Reglan) vomiting #30 tabs cefuroxime axetil 250 mg tablet 250 mg PO BID 7 days #14 tabs 05/02/23 ondansetron 4 mg disintegrating 4 mg PO Q6-8H PRN nausea and 05/02/23 tablet vomiting #20 tabs penicillin V potassium 500 mg 500 mg PO BID 10 days #20 tabs 09/18/23 tablet ondansetron 4 mg disintegrating 4 mg PO Q8H 3 days #9 tabs 02/06/24 tablet Allergies Allergy/AdvReac Type Severity Reaction Status Date / Time No Known Allergies Allergy Verified 02/06/24 15:35 [No Known Allergies*] Review of Systems Constitutional: Reports no additional constitutional complaints, Denies chills, Denies fever(s) and Denies night sweats Eyes: Reports no additional eye complaints, Denies blurry vision, Denies change in vision, Denies diplopia, Denies eye discharge, Denies loss of vision and Denies eye pain Denies dizziness Cardiovascular: Reports no additional cardiovascular complaints, Denies chest pain, Denies lightheadedness, Denies Loss of Consciousness and Denies dyspnea Respiratory: Reports no additional respiratory complaints and Denies dyspnea Gastrointestinal: Reports no additional gastrointestinal complaints, Denies abdominal pain, Denies melena, Denies hematochezia, Denies change in bowel habits, Denies change in stool character, Reports nausea and Reports vomiting Genitourinary: Denies hematuria, Denies urinary frequency, Denies dysuria, Denies urinary incontinence, Denies urinary hesitancy and Denies urinary urgency Musculoskeletal: Reports no additional musculoskeletal complaints, Denies numbness and Denies tingling Denies dizziness, Denies loss of vision, Denies numbness and Denies tingling Psychiatric: Reports no additional psychiatric complaints Endocrine: Reports no additional endocrine complaints Hematologic/Lymphatic: Reports no additional hematologic/lymphatic complaints Allergic/Immunologic: Reports no additional allergic/immunologic complaints PMFSH Past Medical History Attestation statement: The following information was validated with the patient. Source: old records reviewed and nursing notes reviewed Medical History Ectopic Pre-eclampsia HTN (hypertension) Social History Social History Alcohol intake: never Patient Tobacco Use Status: Never used Tobacco Smoked in Last 30 Days: No Use of substances other than those prescribed or required for medical reasons: No Advance Directives: No Advance Directives Information Provided: No Do you have a plan to hurt others: No Plan Patient : No (unk) Physical Exam ED Vital Signs: Vital Signs - 24 hr 02/06/24 15:33 02/06/24 18:43 02/06/24 21:27 Temperature 97.9 F 98.1 F 98.0 F Pulse Rate 52 54 53 Respiratory Rate 18 16 17 Blood Pressure 154/76 H 131/78 128/71 Pulse Oximetry 100 98 98 Oxygen Delivery Method Room Air Room Air Room Air 02/06/24 22:36 Temperature 98.5 F Pulse Rate 54 Respiratory Rate 18 Blood Pressure 130/75 Pulse Oximetry 100 Oxygen Delivery Method Room Air BMI result Body Mass Index 22.3 Const General: cooperative, no acute distress, alert and awake Nutritional Appearance: well nourished Orientation/consciousness: patient oriented x3 Limitations: no limitations HENMT Head: Yes normal to inspection and Yes atraumatic Ears: hearing grossly normal bilaterally and external ears normal General nose exam: Normal external nose present, no nasal discharge noted and no epistaxis Face and sinus: Yes normal facial exam, No abrasion and No laceration Mouth: Normal oral and palatal mucosa present, no drooling and no muffled voice Eyes General: appearance normal, both eyes and all related structures Periorbital: periorbital findings normal Eyelids: Yes eyelids normal Conjunctivae: conjunctivae normal Pupils: Equal, round and reactive pupils present EOM: EOMs intact bilaterally Neck Neck: Yes normal visual inspection, Yes full ROM and Yes no lymphadenopathy Chest Chest palpation & inspection: normal inspection of the chest Resp Effort & Inspection: normal respiratory effort and able to speak in complete sentences GI Inspection: Yes normal to inspection Neuro General: patient oriented x3 and moves all extremities Cranial nerves: Yes Equal, round and reactive pupils present Cognition (Neuro): normal cognition Extrem General: Yes normal to inspection, Yes full ROM and Yes capillary refill normal Psych Appearance: grossly normal Mental Status: mental status grossly normal Affect: normal affect Attitude: cooperative Thought process: Normal thought process present Thought content: Normal thought content present Insight: Good insight present (Psych) Course Course Course Narrative: This is a rapid medical exam. Deferred additional HPI, ROS and PE to primary provider. 33 yo female here with vomiting x 5 days, took test at home which was positive. No abdominal pain/vag bleeding. G 7 P 4 MS 2 LMP middle of November. Has appt 02/22 with Jose Armando Beckford. Will need labs, UA/ur preg, will give SL floyd Mcqueen APRN Medical Decision Making Medical Decision Making [facility] Narrative: Patient is a 33 year old assigned female at with a history of preeclampsia presenting to the emergency department today with nausea, vomiting, and potential . Patient's physical exam was unremarkable. Patient's blood work showed an elevated HCG consistent with . Patient's urine showed no acute process. Patient's OB US showed a single viable intrauterine at approximately 8 weeks. I explained my physical exam findings as well as all test results to the patient. I answered all questions asked by the patient. I stressed the importance of the patient taking her medication as directed (either prescribed or as the over the counter packaging recommends). I stressed the importance of the patient following up with her primary care provider and her OBGYN as scheduled for 02/23/2024. Patient given strict return precautions for preeclamptic symptoms. Patient's blood pressures remained stable and appropriate and the patient symptom free. I stressed the importance of the patient returning to the emergency department immediately if her symptoms were to worsen or if she were to develop any dizziness, shortness of breath, difficulty breathing, chest pain, blurry vision, loss of vision, nausea, vomiting, abdominal pain, fever, chills, back pain, or any other complaints. Patient verbalized agreement and understanding with this treatment plan and discharge. Differential Diagnosis Differential Diagnoses: The differential diagnosis associated with the presentation includes First trimester Nausea Vomiting Admission/Observation Consideration of admission/observation: Escalation of care including admission/observation considered Patient would have been admitted to the hospital had her work up had any findings where hospital admission was appropriate and her clinical presentation warranted hospital admission. Lab Data [facility] Lab Attestation statement: I reviewed the patient's lab results. My interpretation of these results are in the [facility] Rationale portion of this note. 02/06/24 15:44 02/06/24 15:44 Labs: Lab Results 02/06/24 Range/Units 15:44 WBC 11.8 H (4.8-10.8) X10*3/uL RBC 4.53 (4.20-5.50) X10*6/uL Hgb 12.0 (12.0-16.0) g/dl Hct 36.0 L (37.0-47.0) % MCV 79.5 L (80.0-98.0) fL MCH 26.5 L (27.0-33.0) pg MCHC 33.3 (31.0-35.0) g/dl RDW 15.4 (11.0-16.0) % Plt Count 348 (160-400) X10*3/uL MPV 9.4 (9.4-12.3) fL Immature Gran % (Auto) 0.3 (0.0-0.4) % Neut % (Auto) 81.0 H (45-73) % Lymph % (Auto) 14.2 L (20-40) % [place] % (Auto) 4.3 (2-11) % Eos % (Auto) 0.0 (0-4) % Baso % (Auto) 0.2 (0-2) % Lymph # (Auto) 1.7 (1.2-4.9) X10*3/uL [place] # (Auto) 0.5 (0.1-1.2) X10*3/uL Eos # (Auto) 0.0 (0.0-0.4) X10*3/uL Baso # (Auto) 0.0 (0.0-0.2) X10*3/uL Abs Immat Gran (auto) 0.04 H (0.00-0.03) X10*3/uL Absolute Neuts (auto) 9.6 H (2.0-8.3) x10*3/uL Absolute Nucleated RBC 0.000 (0.0-0.012) X10*3/uL Nucleated RBC % (auto) 0.0 (0.0-0.2) /100WBC Sodium 139 (135-145) mmol/L Potassium 4.0 (3.3-5.1) mmol/L Chloride 103 (96-108) mmol/L Carbon Dioxide 27 (22-29) mmol/L Anion Gap 13 (12-20) BUN 8 L (9-16) mg/dL Creatinine 0.79 (0.5-1.4) mg/dL Estim Creat Clear Calc 88.2 Estimated GFR > 60 Random Glucose 103 (60-115) mg/dL Calcium 9.9 D (8.4-10.2) mg/dL Total Bilirubin 0.7 (0.0-1.0) mg/dL Direct Bilirubin 0.4 (0.0-0.5) mg/dL AST 14 (5-31) U/L ALT 14 (0-31) U/L Alkaline Phosphatase 91 (39-117) U/L Total Protein 7.7 (6.5-8.0) g/dL Albumin 4.5 (3.5-5.0) g/dL Beta HCG, Quant [id number] mIU/mL Independent Interpretation I performed an independent interpretation of an: Ultrasound Interpretation: My interpretation is in agreement with the radiologist's impression of this imaging study. - EXAMINATION: US OBSTETRICAL <14 WEEKS ULTRASOUND OB TRANSVAGINAL CLINICAL INFORMATION: . Pain. LMP: 12/03/2023, corresponding to a gestational age of 9 weeks 2 days, SHEREE 09/08/2024 COMPARISON: 07/07/2023 TECHNIQUE: Real-time ultrasound was performed transabdominally and transvaginally . FINDINGS: The uterus is anteverted in position. Within the endometrial cavity is a well formed gestation sac. A yolk sac is present with an inner diameter of 3 mm, normal. The crown-rump length of 1.54 cm corresponds to a menstrual age of 8 weeks 0 days. This yields an estimated date of delivery of 09/17/2024. The heart beat is regular and normal rate measuring 167 beats per minute. Cervix is long (3.7 cm) and closed. The right ovary measures 3.3 x 2.2 x 4.3 cm and contains a 1.7 x 1.9 x 9 cm corpus luteum. A separate 2 x 1.8 x 1.5 cm simple appearing ovarian cyst is also noted., The left ovary measures 2 x 3.2 x 1.5 cm and is unremarkable. OTHER SIGNIFICANT FINDINGS: No intraperitoneal free fluid. US/US OB <= 14 weeks fetus IMPRESSION: Single viable intrauterine estimated to be 8 weeks 0 days menstrual age. Estimated date of delivery is 09/17/2024. No suspicious abnormalities. Electronically signed by: Sunday Carmona MD 02/06/2024 09:57 PM EDT RP Dictated By: Sunday Carmona MD Signed By: Electronically signed by Sunday Carmona MD 02/06/24 2291 Radiology Impression Discussion of test interpretation with radiology: I have reviewed the radiologist's reading. Medications Administered Discontinued Medications Generic Name Dose Route Start Last Admin Trade Name Freq PRN Reason Stop Dose Admin Magnesium Sulfate 4 gm in 50 mls @ 150 mls/hr 02/06/24 18:07 02/06/24 20:26 Magnesium Sulfate/H2o IV 02/06/24 18:26 Infused ONCE ONE Infusion Ondansetron HCl 4 mg 02/06/24 15:36 02/06/24 15:41 Ondansetron Odt 4 Mg Tab.Rapdis TRANSLINGU 02/06/24 15:37 4 mg ONCE ONE Administration Ondansetron HCl 4 mg 02/06/24 21:00 02/06/24 21:10 Ondansetron Hcl 4 Mg/2 Ml Vial IVPUSH 02/06/24 21:01 4 mg ONCE ONE Administration Discharge Plan Discharge Clinical Impression: , Nausea & vomiting Patient Disposition: Home, Self-Care Instructions: (ED), Acute Nausea and Vomiting (ED) Additional Instructions: Follow up with your primary care provider. Return to the emergency department immediately if your symptoms worsen or if you develop any dizziness, shortness of breath, difficulty breathing, chest pain, blurry vision, loss of vision, nausea, vomiting, abdominal pain, fever, chills, back pain, or any other complaints. Prescriptions: New ondansetron 4 mg tablet,disintegrating 4 mg PO Q8H 3 Days Qty: 9 0RF No Action nitrofurantoin monohyd/m-cryst [Macrobid] 100 mg capsule 100 mg PO Q12H 5 Days Qty: 10 0RF Rx Instructions: must administer with a meal/food hydrocortisone [Anti-Itch (HC)] 1 % ointment 1 applic topical BID PRN (Reason: itching) Qty: 28.35 0RF Rx Instructions: apply to hemorrhoid lidocaine 4 % cream 1 applic topical BID PRN (Reason: pain) Qty: 5 0RF Rx Instructions: apply to hemorrhoid oxycodone 5 mg tablet 5 mg PO TID PRN (Reason: pain) Qty: 7 0RF amoxicillin 500 mg capsule 500 mg PO BID Qty: 14 0RF oxycodone-acetaminophen [Percocet] 5-325 mg tablet 1 tab PO TID PRN (Reason: pain) Qty: 5 0RF cefuroxime axetil 250 mg tablet 250 mg PO BID 7 Days Qty: 14 0RF ondansetron 4 mg tablet,disintegrating 4 mg PO Q6-8H PRN (Reason: nausea and vomiting) Qty: 20 0RF penicillin V potassium 500 mg tablet 500 mg PO BID 10 Days Qty: 20 0RF ketorolac 10 mg tablet 10 mg PO BID PRN (Reason: pain) Qty: 10 0RF acetaminophen 500 mg capsule 500 mg PO Q6H PRN (Reason: fever or pain) Qty: 20 0RF metoclopramide HCl [Reglan] 10 mg tablet 10 mg PO Q6H PRN (Reason: nausea and vomiting) Qty: 30 0RF Referrals: [facility] [[facility]] (Call to establish and follow up with a primary care provider. If you already have a primary care provider, please follow up with them.) [facility] [[facility]] (Call to establish and follow up with a primary care provider. If you already have a primary care provider, please follow up with them.) [facility] [Provider [facility]] (Call to establish and follow up with a primary care provider. If you already have a primary care provider, please follow up with them.) Stand Alone Forms: Work/School Release Interventions: ED Discharge Assessment Last Done: 02/06/24 22:36 Discharge Date/Time: 02/06/24 22:37 Print Language: Ukrainian
[2024-02-06] MEDS: Ondansetron ODT 4 MG TAB.RAPDIS TRANSLINGU (15:41)
[2024-02-06 15:49] LABS: Basophils Percent Auto 0.2 % (0-2); Imm Gran Abs Auto 0.04 X10*3/uL (0.00-0.03); Imm Gran Pct Auto 0.3 % (0.0-0.4); Lymphocytes Absolute Auto 1.7 X10*3/uL (1.2-4.9); Lymphocytes Percent Auto 14.2 % (20-40); MANUAL DIFF FLAG NO; Mean Corpuscular HGB Conc 33.3 g/dl (31.0-35.0); Mean Corpuscular Hemoglobin 26.5 pg (27.0-33.0); Mean Corpuscular Volume 79.5 fL (80.0-98.0); Mean Platelet Volume 9.4 fL (9.4-12.3); Monocytes Absolute Auto 0.5 X10*3/uL (0.1-1.2); Monocytes Percent Auto 4.3 % (2-11); Neutrophils Absolute Auto 9.6 x10*3/uL (2.0-8.3); Platelet Count 348 X10*3/uL (160-400); Red Blood Count 4.53 X10*6/uL (4.20-5.50); Red Cell Distribution Width 15.4 % (11.0-16.0); White Blood Count 11.8 X10*3/uL (4.8-10.8)
[2024-02-06 16:13] LABS: Alanine Aminotransferase 14 U/L (0-31); Albumin Level 4.5 g/dL (3.5-5.0); Alkaline Phosphatase 91 U/L (39-117); Anion Gap 13 (12-20); Aspartate Amino Transferase 14 U/L (5-31); Bilirubin Direct 0.4 mg/dL (0.0-0.5); Bilirubin Total 0.7 mg/dL (0.0-1.0); Blood Urea Nitrogen 8 mg/dL (9-16); Calcium 9.9 mg/dL (8.4-10.2); Carbon Dioxide 27 mmol/L (22-29); Chloride 103 mmol/L (96-108); Creatinine Clr Calc Pharmacy 88.2; Estimated Glomerular Filt Rate > 60; Glucose Random 103 mg/dL (60-115); Sodium 139 mmol/L (135-145); Total Protein 7.7 g/dL (6.5-8.0)
[2024-02-06 18:43] VITALS: BP 131/78; PULSE 54; RESP 16; TEMP 36.7; O2SAT 98
[2024-02-06] MEDS: Magnesium Sulfate/H2O 4 GM/50 ML PIGGYBACK IV (18:43)
--- NOTE | 2024-02-06 19:11 | PC.NURSE ---
Received report from Yashira CHARLES, assume care of pt at this time
[2024-02-06] MEDS: ondansetron HCL 4 MG/2 ML VIAL IVPUSH (21:10)
--- NOTE | 2024-02-06 21:17 | PC.NURSE ---
pt medicated for nausea, awaitng resulst of US
[2024-02-06 21:27] VITALS: BP 128/71; PULSE 53; RESP 17; TEMP 36.7; O2SAT 98
[2024-02-06 22:36] VITALS: BP 130/75; PULSE 54; RESP 18; TEMP 36.9; O2SAT 100
== END 2024-02-06 22:37 | disposition home or self-care (01) ==
PROVIDERS: Nurse Practitioner Family; Physician Assistant Medical; Emergency Provider Emergency Medicine Emergency Medical Services
DX: R11.2 Nausea with vomiting, unspecified (principal); Z3A.08 8 weeks gestation of pregnancy
CPT/HCPCS: 36415; 76801; 76817; 80048; 80076; 84702; 85025; 96365; 96366; 96375; 99284; J2405; J3475

== ENCOUNTER 2024-05-21 18:30 | Emergency (ER) | payer OTHER, SELFPAY ==
[2024-05-21 18:41] VITALS: BP 200/120; PULSE 90; O2SAT 96; BMI 24.9
[2024-05-21 18:47] VITALS: BP 164/106; PULSE 83; RESP 18; TEMP 37.1; O2SAT 95
[2024-05-21 19:03] LABS: MANUAL DIFF FLAG NO
[2024-05-21 19:06] LABS: Basophils Percent Auto 0.2 % (0-2); Eosinophils Percent Auto 0.1 % (0-4); Hematocrit 32.7 % (37.0-47.0); Hemoglobin 11.1 g/dl (12.0-16.0); Imm Gran Abs Auto 0.02 X10*3/uL (0.00-0.03); Imm Gran Pct Auto 0.2 % (0.0-0.4); Lymphocytes Absolute Auto 1.5 X10*3/uL (1.2-4.9); Lymphocytes Percent Auto 15.6 % (20-40); Mean Corpuscular HGB Conc 33.9 g/dl (31.0-35.0); Mean Corpuscular Hemoglobin 26.1 pg (27.0-33.0); Mean Corpuscular Volume 76.8 fL (80.0-98.0); Mean Platelet Volume 9.1 fL (9.4-12.3); Monocytes Absolute Auto 0.6 X10*3/uL (0.1-1.2); Neutrophils Absolute Auto 7.4 x10*3/uL (2.0-8.3); Neutrophils Percent Auto 77.9 % (45-73); Platelet Count 293 X10*3/uL (160-400); Red Blood Count 4.26 X10*6/uL (4.20-5.50); Red Cell Distribution Width 15.2 % (11.0-16.0); White Blood Count 9.4 X10*3/uL (4.8-10.8)
[2024-05-21 19:46] LABS: Alanine Aminotransferase 11 U/L (0-31); Albumin Level 3.6 g/dL (3.5-5.0); Alkaline Phosphatase 84 U/L (39-117); Anion Gap 13 (12-20); Aspartate Amino Transferase 17 U/L (5-31); Bilirubin Total 0.4 mg/dL (0.0-1.0); Blood Urea Nitrogen 8 mg/dL (9-16); Calcium 9.2 mg/dL (8.4-10.2); Carbon Dioxide 27 mmol/L (22-29); Chloride 101 mmol/L (96-108); Creatinine Clr Calc Pharmacy 114.8; Estimated Glomerular Filt Rate > 60; Glucose Random 102 mg/dL (60-115); Lipase 24 U/L (8-78); Potassium 3.2 mmol/L (3.3-5.1); Sodium 138 mmol/L (135-145); Total Protein 6.8 g/dL (6.5-8.0)
[2024-05-21 20:14] LABS: HCG Quantitative 45663 mIU/mL
[2024-05-21] MEDS: Ondansetron ODT 4 MG TAB.RAPDIS TRANSLINGU (20:41)
--- NOTE | 2024-05-21 20:43 | PC.NURSE ---
pt requesting nausea and pain meds. rocking back in forth in bed d/t headache
[2024-05-21] MEDS: Acetaminophen 325 MG TABLET 650 MG PO (21:01)
[2024-05-21 22:00] VITALS: BP 134/80; PULSE 73; RESP 18; TEMP 37.1; O2SAT 97
--- NOTE | 2024-05-21 22:17 | ED.GENADULT ---
HPI - General Adult General Chief complaint: Nausea/Vomiting/Diarrhea Stated complaint: VOMITTING NAUSEA 3+ DAYS PER EMS Time Seen by Provider: 05/21/24 22:17 History of Present Illness ED Provider: Zita HUGHES narrative: The patient is a 34-year-old female who is 23 weeks . This is her 7th . She has 4 children. She has had 1 . She has had 1 ectopic The patient reports a history of preeclampsia with her most recent previous that she carried to term. The patient comes to the emergency room by ambulance today because of nausea and vomiting that she has had for about 48 hours. She says that during this she she has had episodes of nausea and vomiting that occur about once a week. She thought that the nausea and vomiting that she was experiencing on this occasion was similar to the previous episodes but it was more prolonged and she developed a headache today as well so she thought she should come to the emergency room because she felt that she was being able to take very little by mouth and was concerned about becoming dehydrated. No significant abdominal pain. No diarrhea. She had an ultrasound 2 weeks ago. Her expected due date is 09/17/2024. Related Data Previous Rx's ?Medication ?Instructions ?Recorded hydrocortisone 1 % topical 1 applic topical BID PRN itching 04/14/20 ointment (Anti-Itch #28.35 grams (hydrocortisone)) lidocaine 4 % topical cream 1 applic topical BID PRN pain #5 04/14/20 grams nitrofurantoin 100 mg PO Q12H 5 days #10 caps 11/20/20 monohydrate/macrocrystals 100 mg capsule (Macrobid) oxycodone 5 mg tablet 5 mg PO TID PRN pain #7 tabs 04/04/21 amoxicillin 500 mg capsule 500 mg PO BID #14 caps 04/15/21 oxycodone-acetaminophen 5 mg-325 1 tab PO TID PRN pain #5 tabs 04/15/21 mg tablet (Percocet) acetaminophen 500 mg capsule 500 mg PO Q6H PRN fever or pain 03/05/23 #20 caps ketorolac 10 mg tablet 10 mg PO BID PRN pain #10 tabs 03/05/23 metoclopramide HCl 10 mg tablet 10 mg PO Q6H PRN nausea and 04/22/23 (Reglan) vomiting #30 tabs cefuroxime axetil 250 mg tablet 250 mg PO BID 7 days #14 tabs 05/02/23 ondansetron 4 mg disintegrating 4 mg PO Q6-8H PRN nausea and 05/02/23 tablet vomiting #20 tabs penicillin V potassium 500 mg 500 mg PO BID 10 days #20 tabs 09/18/23 tablet ondansetron 4 mg disintegrating 4 mg PO Q8H 3 days #9 tabs 02/06/24 tablet Allergies Allergy/AdvReac Type Severity Reaction Status Date / Time No Known Allergies Allergy Verified 05/21/24 18:43 [No Known Allergies*] Review of Systems Review of Systems: Yes all other systems are reviewed and are negative [facility]LY [facility], [facility] Past Medical History Medical History Ectopic Pre-eclampsia HTN (hypertension) Social History Social History Alcohol intake: never Patient Tobacco Use Status: Never used Tobacco Smoked in Last 30 Days: No Use of substances other than those prescribed or required for medical reasons: No Advance Directives: No Advance Directives Information Provided: No Do you have a plan to hurt others: No Plan Patient : Yes Physical Exam ED Vital Signs: Vital Signs - 24 hr 05/21/24 18:47 05/21/24 22:00 05/22/24 00:20 Temperature 98.7 F 98.7 F 98.5 F Pulse Rate 83 73 72 Respiratory Rate 18 18 16 Blood Pressure 164/106 H 134/80 149/92 H Pulse Oximetry 95 97 98 Oxygen Delivery Method Room Air Room Air Room Air 05/22/24 00:21 Temperature 98.7 F Pulse Rate 73 Respiratory Rate 18 Blood Pressure 134/80 Pulse Oximetry 97 Oxygen Delivery Method Room Air BMI result Body Mass Index 24.9 Const Other: The patient is a 34-year-old female who was awake and alert and looks somewhat tired but not in acute distress. HENMT Head: Yes normal to inspection Face and sinus: Yes normal facial exam Mouth: Normal oral and palatal mucosa present and moist mucous membranes abnormal Eyes General: appearance normal, both eyes and all related structures Conjunctivae: conjunctivae normal Pupils: Equal, round and reactive pupils present EOM: EOMs intact bilaterally Neck Neck: Yes full ROM Resp Effort & Inspection: normal respiratory effort Auscultation: clear to auscultation bilaterally Cardio Rate: regular rate Rhythm: regular rhythm Heart sounds: S1 normal heart sound present and S2 normal heart sound present GI Other: The patient has a gravid abdomen. The uterine fundus is about at the level of the umbilicus. There was no abdominal tenderness. Skin Other: Skin is dry and unremarkable Neuro Other: The patient is awake and alert with a normal mental status. Cranial nerves are intact. She has a supple neck. She moves her extremities normally and appropriately. Cranial nerves: Yes Equal, round and reactive pupils present Extrem Other: No peripheral edema. Medications Administered Discontinued Medications Generic Name Dose Route Start Last Admin Trade Name Freq PRN Reason Stop Dose Admin Acetaminophen 650 mg 05/21/24 20:43 05/21/24 21:01 Acetaminophen 325 Mg Tablet PO 05/21/24 20:44 650 mg ONCE ONE Administration Diphenhydramine HCl 12.5 mg 05/21/24 22:26 05/21/24 23:00 Diphenhydramine Hcl 50 Mg/Ml Vial IVPUSH 05/21/24 22:27 12.5 mg ONCE ONE Administration Sodium Chloride 1,000 mls @ 999 mls/hr 05/21/24 22:30 05/22/24 00:03 Ns IV 05/21/24 23:30 Infused .Q1H1M RAMBO Infusion Metoclopramide HCl 10 mg 05/21/24 22:26 05/21/24 23:01 Metoclopramide Hcl 10 Mg/2 Ml Vial IVPUSH 05/21/24 22:27 10 mg ONCE ONE Administration Ondansetron HCl 4 mg 05/21/24 20:37 05/21/24 20:41 Ondansetron Odt 4 Mg Tab.Rapdis TRANSLINGU 05/21/24 20:38 4 mg ONCE ONE Administration Medical Decision Making Medical Decision Making [facility] Narrative: The patient is a 34-year-old woman who is 23 weeks . She presents with 2 days of nausea and vomiting. She has also developed a gradual onset headache during this time. She has had similar problems with nausea and vomiting intermittently during the but the symptoms were more prolonged on this occasion. She was given a L of IV fluids and 10 mg of IV metoclopramide and 12.5 mg of diphenhydramine. She had complete resolution of her headache and her nausea. She was eager for discharge at that point. An initial blood pressure has been elevated but she does not seem to have any sustained blood pressure readings. Blood pressure at the time of discharge was 134/80. She has an appointment with her Ob in 2 days on Thursday. Lab Data 05/21/24 18:59 05/21/24 18:59 Labs: Lab Results 05/21/24 Range/Units 18:59 WBC 9.4 (4.8-10.8) X10*3/uL RBC 4.26 (4.20-5.50) X10*6/uL Hgb 11.1 L (12.0-16.0) g/dl Hct 32.7 L (37.0-47.0) % MCV 76.8 L (80.0-98.0) fL MCH 26.1 L (27.0-33.0) pg MCHC 33.9 (31.0-35.0) g/dl RDW 15.2 (11.0-16.0) % Plt Count 293 (160-400) X10*3/uL MPV 9.1 L (9.4-12.3) fL Immature Gran % (Auto) 0.2 (0.0-0.4) % Neut % (Auto) 77.9 H (45-73) % Lymph % (Auto) 15.6 L (20-40) % [place] % (Auto) 6.0 (2-11) % Eos % (Auto) 0.1 (0-4) % Baso % (Auto) 0.2 (0-2) % Lymph # (Auto) 1.5 (1.2-4.9) X10*3/uL [place] # (Auto) 0.6 (0.1-1.2) X10*3/uL Eos # (Auto) 0.0 (0.0-0.4) X10*3/uL Baso # (Auto) 0.0 (0.0-0.2) X10*3/uL Abs Immat Gran (auto) 0.02 (0.00-0.03) X10*3/uL Absolute Neuts (auto) 7.4 (2.0-8.3) x10*3/uL Absolute Nucleated RBC 0.000 (0.0-0.012) X10*3/uL Nucleated RBC % (auto) 0.0 (0.0-0.2) /100WBC Sodium 138 (135-145) mmol/L Potassium 3.2 L (3.3-5.1) mmol/L Chloride 101 (96-108) mmol/L Carbon Dioxide 27 (22-29) mmol/L Anion Gap 13 (12-20) BUN 8 L (9-16) mg/dL Creatinine 0.65 (0.5-1.4) mg/dL Estim Creat Clear Calc 114.8 Estimated GFR > 60 Random Glucose 102 (60-115) mg/dL Calcium 9.2 D (8.4-10.2) mg/dL Total Bilirubin 0.4 (0.0-1.0) mg/dL AST 17 (5-31) U/L ALT 11 (0-31) U/L Alkaline Phosphatase 84 (39-117) U/L Total Protein 6.8 (6.5-8.0) g/dL Albumin 3.6 (3.5-5.0) g/dL Lipase 24 (8-78) U/L Beta HCG, Quant 67333 mIU/mL Discharge Plan Discharge Clinical Impression: Nausea & vomiting, 23 weeks gestation of Patient Disposition: Home, Self-Care Additional Instructions: Please rest and take it easy tomorrow. Eat simple foods and drink clear fluids. Please keep your appointment on Thursday with the [facility] obstetrical office. Return to the emergency room if significantly worse. Prescriptions: No Action nitrofurantoin monohyd/m-cryst [Macrobid] 100 mg capsule 100 mg PO Q12H 5 Days Qty: 10 0RF Rx Instructions: must administer with a meal/food hydrocortisone [Anti-Itch (HC)] 1 % ointment 1 applic topical BID PRN (Reason: itching) Qty: 28.35 0RF Rx Instructions: apply to hemorrhoid lidocaine 4 % cream 1 applic topical BID PRN (Reason: pain) Qty: 5 0RF Rx Instructions: apply to hemorrhoid oxycodone 5 mg tablet 5 mg PO TID PRN (Reason: pain) Qty: 7 0RF amoxicillin 500 mg capsule 500 mg PO BID Qty: 14 0RF oxycodone-acetaminophen [Percocet] 5-325 mg tablet 1 tab PO TID PRN (Reason: pain) Qty: 5 0RF cefuroxime axetil 250 mg tablet 250 mg PO BID 7 Days Qty: 14 0RF ondansetron 4 mg tablet,disintegrating 4 mg PO Q6-8H PRN (Reason: nausea and vomiting) Qty: 20 0RF penicillin V potassium 500 mg tablet 500 mg PO BID 10 Days Qty: 20 0RF ketorolac 10 mg tablet 10 mg PO BID PRN (Reason: pain) Qty: 10 0RF acetaminophen 500 mg capsule 500 mg PO Q6H PRN (Reason: fever or pain) Qty: 20 0RF metoclopramide HCl [Reglan] 10 mg tablet 10 mg PO Q6H PRN (Reason: nausea and vomiting) Qty: 30 0RF ondansetron 4 mg tablet,disintegrating 4 mg PO Q8H 3 Days Qty: 9 0RF Referrals: [facility] [Outside] (Nausea and vomiting) Stand Alone Forms: Work/School Release Interventions: ED Discharge Assessment Last Done: 05/22/24 00:21 Discharge Date/Time: 05/22/24 00:22 Print Language: Micronesian
[2024-05-21] MEDS: diphenhydrAMINE HCL 50 MG/ML VIAL 12.5 MG IVPUSH (23:00)
[2024-05-21] MEDS: Metoclopramide HCl 10 MG/2 ML VIAL IVPUSH (23:01)
[2024-05-21] MEDS: 0.9 % Sodium Chloride 1,000 ML 999 ML IV (23:01)
[2024-05-22 00:20] VITALS: BP 149/92; PULSE 72; RESP 16; TEMP 36.9; O2SAT 98
[2024-05-22 00:21] VITALS: BP 134/80; PULSE 73; RESP 18; TEMP 37.1; O2SAT 97
== END 2024-05-22 00:22 | disposition home or self-care (01) ==
PROVIDERS: Emergency Provider Emergency Medicine
DX: O21.2 Late vomiting of pregnancy (principal); Z3A.23 23 weeks gestation of pregnancy
CPT/HCPCS: 36415; 80053; 83690; 84702; 85025; 96361; 96374; 96375; 99284; J1200; J2765

== ENCOUNTER 2025-04-21 05:29 | Emergency (ER) | payer OTHER, SELFPAY ==
[2025-04-21 05:33] VITALS: BP 158/96; PULSE 86; O2SAT 98
[2025-04-21 05:35] VITALS: BP 140/91; PULSE 79; RESP 18; TEMP 36.9; O2SAT 98; BMI 28.8
[2025-04-21 05:51] LABS: MANUAL DIFF FLAG NO
[2025-04-21 05:52] LABS: Hematocrit 32.1 % (37.0-47.0); Hemoglobin 9.5 g/dl (12.0-16.0); Imm Gran Abs Auto 0.03 X10*3/uL (0.00-0.03); Imm Gran Pct Auto 0.3 % (0.0-0.4); Lymphocytes Absolute Auto 1.0 X10*3/uL (1.2-4.9); Mean Corpuscular HGB Conc 29.6 g/dl (31.0-35.0); Mean Corpuscular Hemoglobin 18.1 pg (27.0-33.0); NRBC Abs Auto 0.000 X10*3/uL (0.0-0.012); NRBC Pct Auto 0.0 /100WBC (0.0-0.2); Platelet Count 463 X10*3/uL (160-400); Red Blood Count 5.26 X10*6/uL (4.20-5.50); White Blood Count 10.8 X10*3/uL (4.8-10.8)
[2025-04-21 05:57] LABS: Mean Corpuscular Volume 61.0 fL (80.0-98.0)
--- NOTE | 2025-04-21 06:08 | ED_ITS ---
HPI - Headache General Chief Complaint: Headache Stated Complaint: RUBIN,NAUSEA,VOMITING X7H PER EMS Time Seen by Provider: 04/21/25 05:57 Source: patient Mode of arrival: EMS Limitations: no limitations History of Present Illness ED Provider: Dr. Nicholas Almendarez HPI Narrative: 35-year-old female with a history of migraine headaches, hypertension , x7 months who presents emergency department for evaluation of the headache x3 days, nausea and vomiting. Patient states that the headache came on suddenly proximally 3 days prior and then gradually got worse. She states that the pain has been constant, 8/10, pressure in her frontal area of her head. She states she took her blood pressure at home and it was 170/117. The patient is x7 months since he states that during her she had preeclampsia and was taking labetalol and nifedipine. Patient states she took 90 mg of nifedipine prior to coming to the emergency department to see if this would help with the blood pressure. She does not take this on a regular basis and does not check her blood pressure on a regular basis. She complains of nausea in his had at least 4 episodes of vomiting prior to coming to the emergency department. She denied fever, chills, cough, chest pain or shortness of breath. She states she feels overall weak but no localized weakness. She denied numbness in her extremities. Related Data Previous Rx's ?Medication ?Instructions ?Recorded hydrocortisone 1 % topical 1 applic topical BID PRN it zuhair 04/14/20 ointment (Anti-Itch #28.35 grams (hydrocortisone)) lidocaine 4 % topical cream 1 applic topical BID PRN p ain #5 04/14/20 grams nitrofurantoin 100 mg PO Q12H 5 days #10 ca ps 11/20/20 monohydrate/macrocrystals 100 mg capsule (Macrobid) oxycodone 5 mg tablet 5 mg PO TID PRN pain #7 tabs 04/04/21 amoxicillin 500 mg capsule 500 mg PO BID #14 caps 07/05 oxycodone-acetaminophen 5 mg-325 1 tab PO TID PRN pain #5 tabs 04/15/21 mg tablet (Percocet) acetaminophen 500 mg capsule 500 mg PO Q6H PRN fever o r pain 03/05/23 #20 caps ketorolac 10 mg tablet 10 mg PO BID PRN pain #10 ta bs 03/05/23 metoclopramide HCl 10 mg tablet 10 mg PO Q6H PRN nause a and 04/22/23 (Reglan) vomiting #30 tabs cefuroxime axetil 250 mg tablet 250 mg PO BID 7 days # 14 tabs 05/02/23 ondansetron 4 mg disintegrating 4 mg PO Q6-8H PRN naus ea and 05/02/23 tablet vomiting #20 tabs penicillin V potassium 500 mg 500 mg PO BID 10 days #2 0 tabs 09/18/23 tablet ondansetron 4 mg disintegrating 4 mg PO Q8H 3 days #9 tabs 02/06/24 tablet ondansetron 4 mg disintegrating 4 mg PO Q6-8H PRN naus ea and 04/21/25 tablet vomiting #14 tabs Allergies Allergy/AdvReac Type Severity Reaction Status Date / Time metoclopramide (From Reglan) AdvReac Shakiness Verified 04/21/25 05:40 Review of Systems 2 Review of Systems: Yes all other systems are reviewed and are negative [facility] Past Medical History [facility] Narrative: Social history: She denies tobacco, alcohol and drug use. Medical History Ectopic Pre-eclampsia HTN (hypertension) Social History Social History Alcohol intake: never Patient Tobacco Use Status: Never used Tobacco Smoked in Last 30 Days: No Use of substances other than those prescribed or required for medical reasons: No Advance Directives: No Advance Directives Information Provided: No Patient : No Physical Exam 2 Vital Signs: Vital Signs: Last Vital Signs Temp 98.4 F 04/21/25 05:35 Pulse 79 04/21/25 05:35 Resp 18 04/21/25 05:35 BP 140/91 H 04/21/25 05:35 Pulse Ox 98 04/21/25 05:35 O2 Del Method Room Air 04/21/25 05:35 BMI result Body Mass Index 28.8 Vital signs revealed an elevated blood pressure of 140/91 otherwise unremarkable Exam: General: Awake, alert appears to be in distress secondary to her headache and nausea Head: Normocephalic, atraumatic EENT: PERRL, sclera and conjunctiva are normal, mouth with no erythema or exudates Neck: Supple, no adenopathy Lung: breath sounds symmetric, no wheezing, no rales and no rhonchi Chest: symmetric movement, nontender Heart: regular rate and rhythm, normal S1, S2 no murmurs or rubs Abdomen: soft, mild to moderate diffuse tenderness, nondistended, normal bowel sounds Back: no vertebral tenderness, no CVAT Extremities: no deformities, moves all extremities symmetrically, no edema Neuro: General: ?Awake, alert, oriented, normal speech Cranial nerves: ?Cranial nerve 2 through 12 ?intact Strength: ?Moves all extremities symmetrically, strength 5/5 Cerebellar: ?Good ryeham-jw-ejug-to-finger, good rapid finger movement, normal heel to fleming Psych: Pleasant, cooperative Medications Administered Discontinued Medications Generic Name Dose Route Start Last Admin Trade Name Freq PRN Reason Stop Dose Admin Sodium Chloride 1,000 mls @ 999 mls/hr 04/21/25 06:06 04/21/25 06:13 Ns IV 04/21/25 07:06 999 mls/hr .Q1H1M STA Administration Ketorolac Tromethamine 15 mg 04/21/25 06:06 04/21/25 06:12 Ketorolac Tromethamine 15 Mg/Ml Vial IVPUSH 04/21/25 06:07 15 mg ONCE STA Administration Ondansetron HCl 4 mg 04/21/25 06:06 04/21/25 06:12 Ondansetron Hcl 4 Mg/2 Ml Vial IVPUSH 04/21/25 06:07 4 mg ONCE ONE Administration Medical Decision Making Medical Decision Making [facility] Narrative: 35-year-old female with a history of migraine headaches, hypertension , x7 months who presents emergency department for evaluation of the headache x3 days, nausea and vomiting. Patient states that the headache came on suddenly proximally 3 days prior and then gradually got worse. She states that the pain has been constant, 8/10, pressure in her frontal area of her head. She states she took her blood pressure at home and it was 170/117. The patient is x7 months since he states that during her she had preeclampsia and was taking labetalol and nifedipine. Patient states she took 90 mg of nifedipine prior to coming to the emergency department to see if this would help with the blood pressure. She does not take this on a regular basis and does not check her blood pressure on a regular basis. She complains of nausea in his had at least 4 episodes of vomiting prior to coming to the emergency department. She denied fever, chills, cough, chest pain or shortness of breath. She states she feels overall weak but no localized weakness. She denied numbness in her extremities. Vital signs revealed an elevated blood pressure of 140/91 otherwise unremarkable. Patient appeared to be in distress secondary to her nausea and headache, neurologic exam was nonfocal, abdomen did reveal mild to moderate diffuse abdominal tenderness. Differential diagnosis: ?Includes but is not limited to viral syndrome, gastritis, migraine syndrome, anemia, electrolyte abnormalities Course: :54 Patient's physical examination was unremarkable, symptoms are most likely consistent with migraine headache which caused her to have an elevated blood pressure and I did discuss this with her. Patient was treated with Zofran 4 mg, Toradol 15 mg and Benadryl 50 mg IV. She states that her pain is improved to 3/10 and she feels comfortable going home at this time. I did discuss her microcytic anemia with her and advised her to take iron once a day for 3 months. I told the patient that she should check her blood pressures once a day for the next 2 weeks and write these blood pressures down, make a follow up appointment with her doctor in 2 weeks to discuss these blood pressure medications I told her that she should not restart the nifedipine since this medication may not be the drug that the PCP would want her on and that this has a drug that we often use for preeclampsia during . The patient was given a prescription for Zofran. She was advised to take Zofran 4 mg ODT, Benadryl 50 mg and Excedrin migraine 2 pills every 6 hours as needed for headaches. She was given printed and verbal instructions and discharged home. Differential Diagnosis Differential Diagnoses: The differential diagnosis associated with the presentation includes (See above) Admission/Observation Consideration of admission/observation: Escalation of care including admission/observation considered (Yes) Lab Data MDM Lab Attestation statement: I reviewed the patient's lab results. My independent interpretation patient's laboratory evaluation is as follows: Microcytic anemia with an H&H of 9.5 and 32.1 with an MCV of 61. Glucose elevated 149. Alk-phos elevated 123. Quantitative beta-hCG below detectable limits. No significant abnormalities that are concerning, I did discuss microcytic/iron deficient anemia with the patient. 04/21/25 05:45 04/21/25 05:45 Labs: Lab Results 04/21/25 Range/Units 05:45 WBC 10.8 (4.8-10.8) X10*3/uL RBC 5.26 D (4.20-5.50) X10*6/uL Hgb 9.5 L (12.0-16.0) g/dl Hct 32.1 L (37.0-47.0) % MCV 61.0 L (80.0-98.0) fL MCH 18.1 L (27.0-33.0) pg MCHC 29.6 L (31.0-35.0) g/dl RDW 20.6 H (11.0-16.0) % Plt Count 463 H D (160-400) X10*3/uL MPV 9.1 L (9.4-12.3) fL Immature Gran % (Auto) 0.3 (0.0-0.4) % Neut % (Auto) 86.3 H (45-73) % Lymph % (Auto) 9.4 L (20-40) % [place] % (Auto) 3.4 (2-11) % Eos % (Auto) 0.1 (0-4) % Baso % (Auto) 0.5 (0-2) % Lymph # (Auto) 1.0 L (1.2-4.9) X10*3/uL [place] # (Auto) 0.4 (0.1-1.2) X10*3/uL Eos # (Auto) 0.0 (0.0-0.4) X10*3/uL Baso # (Auto) 0.1 (0.0-0.2) X10*3/uL Abs Immat Gran (auto) 0.03 (0.00-0.03) X10*3/uL Absolute Neuts (auto) 9.3 H (2.0-8.3) x10*3/uL Absolute Nucleated RBC 0.000 (0.0-0.012) X10*3/uL Nucleated RBC % (auto) 0.0 (0.0-0.2) /100WBC Sodium 137 (135-145) mmol/L Potassium 3.6 (3.3-5.1) mmol/L Chloride 104 (96-108) mmol/L Carbon Dioxide 24 (22-29) mmol/L Anion Gap 13 (12-20) BUN 11 (9-16) mg/dL Creatinine 0.72 (0.5-1.4) mg/dL Estim Creat Clear Calc 110.0 Estimated GFR > 60 Random Glucose 149 H (60-115) mg/dL Calcium 9.2 (8.4-10.2) mg/dL Total Bilirubin 0.3 (0.0-1.0) mg/dL AST 20 (5-31) U/L ALT 14 (0-31) U/L Alkaline Phosphatase 123 H (39-117) U/L Total Protein 8.2 H (6.5-8.0) g/dL Albumin 5.1 H (3.5-5.0) g/dL Beta HCG, Quant < 2 mIU/mL Prescription Management I considered prescription management with: Other (Prescribed antiemetic: Zofran 4 mg ODT) Discharge Plan Discharge Clinical Impression: Iron (Fe) deficiency anemia Migraine Qualifiers: Status migrainosus presence: without status migrainosus Intractability: not intractable Patient Disposition: Home, Self-Care Additional Instructions: Your blood work revealed a microcytic anemia with a hemoglobin and hematocrit of 9.5 and 32.1 with an MCV of 61. This has mild anemia in his most likely caused by iron deficiency from your severe menstrual periods. Every time you bleed you lose iron and this has often a common cause for iron deficiency anemia in women that are still having their menstrual periods. Take an iron supplement (either ferrous sulfate or ferrous gluconate) once a day for 3 months. Follow up with your doctor in 1-2 months to have a repeat hematocrit and hemoglobin. Your elevated blood pressure today was most likely caused by your severe migraine headache. I want you to check your blood pressure is only in the morning once a day for 2 weeks, follow up with your doctor in 2 weeks to discuss these blood pressure readings to see if you need to be on blood pressure medications. Do not worry if any these blood pressure readings are high, your doctor will decide if you need to be on a blood pressure medication. Nifedipine and labetalol are medicines that we commonly use in for preeclampsia high blood pressure but these are not, medications that we treat blood pressure with when you are not . Your headache symptoms today are consistent with a migraine. I want you to take the following 3 medications together every 6 hours as needed for headache, nausea or vomiting. Zofran (ondansetron) ODT 4 mg, 1 dissolved in your cheek or under your tongue Benadry (diphenhydramine) l 25 mg, 2 pills Excedrin migraine (acetaminophen, aspirin, caffeine), 2 pills. After you take these medications, lie down in a dark quiet room and try to fall asleep. ?These medications will make you sleepy, do not drive or work after taking these medications. Follow-up with your doctor in 2 days. Please return to the emergency department if your symptoms get worse or if you develop any symptoms that are concerning to you. Prescriptions: New ondansetron 4 mg tablet,disintegrating 4 mg PO Q6-8H PRN (Reason: nausea and vomiting) Qty: 14 0RF No Action nitrofurantoin monohyd/m-cryst [Macrobid] 100 mg capsule 100 mg PO Q12H 5 Days Qty: 10 0RF Rx Instructions: must administer with a meal/food hydrocortisone [Anti-Itch (HC)] 1 % ointment 1 applic topical BID PRN (Reason: itching) Qty: 28.35 0RF Rx Instructions: apply to hemorrhoid lidocaine 4 % cream 1 applic topical BID PRN (Reason: pain) Qty: 5 0RF Rx Instructions: apply to hemorrhoid oxycodone 5 mg tablet 5 mg PO TID PRN (Reason: pain) Qty: 7 0RF amoxicillin 500 mg capsule 500 mg PO BID Qty: 14 0RF oxycodone-acetaminophen [Percocet] 5-325 mg tablet 1 tab PO TID PRN (Reason: pain) Qty: 5 0RF cefuroxime axetil 250 mg tablet 250 mg PO BID 7 Days Qty: 14 0RF ondansetron 4 mg tablet,disintegrating 4 mg PO Q6-8H PRN (Reason: nausea and vomiting) Qty: 20 0RF penicillin V potassium 500 mg tablet 500 mg PO BID 10 Days Qty: 20 0RF ketorolac 10 mg tablet 10 mg PO BID PRN (Reason: pain) Qty: 10 0RF acetaminophen 500 mg capsule 500 mg PO Q6H PRN (Reason: fever or pain) Qty: 20 0RF metoclopramide HCl [Reglan] 10 mg tablet 10 mg PO Q6H PRN (Reason: nausea and vomiting) Qty: 30 0RF ondansetron 4 mg tablet,disintegrating 4 mg PO Q8H 3 Days Qty: 9 0RF Stand Alone Forms: Work/School Release Print Language: Malay
[2025-04-21 06:17] LABS: Alanine Aminotransferase 14 U/L (0-31); Albumin Level 5.1 g/dL (3.5-5.0); Alkaline Phosphatase 123 U/L (39-117); Anion Gap 13 (12-20); Aspartate Amino Transferase 20 U/L (5-31); Blood Urea Nitrogen 11 mg/dL (9-16); Calcium 9.2 mg/dL (8.4-10.2); Carbon Dioxide 24 mmol/L (22-29); Chloride 104 mmol/L (96-108); Creatinine Clr Calc Pharmacy 110.0; Estimated Glomerular Filt Rate > 60; Potassium 3.6 mmol/L (3.3-5.1); Sodium 137 mmol/L (135-145); Total Protein 8.2 g/dL (6.5-8.0)
--- OUTSIDE RECORDS SUMMARY | 2025-04-21 06:22 | XMS_ITS | Clinical Summary ---
Author Organization Patient Business [facility] Address [address] [place] [address] Care Team Providers [facility] Name Role Phone Edward Sheppard MD Primary Care Provider Allergies No known active allergies Medications clonidine HCl/chlorthalido ne (CLORPRES ORAL) clonidine-c hlorthalido ne (CLORPRES) 0.2-15 MG per tablet- Take 1 tablet by mouth 2 times daily. Take one tablet twice daily Active diphenhydrAMINE (BENADRYL) 25 mg capsule Take 25 mg by mouth every 6 hours as needed. Active Active Problems Problem Noted Date Diagnosed Date Drug abuse ([facility] V24, [facility] V28) 03/13/2021 Insomnia due to other mental disorder 03/13/2021 Anxiety and depression 03/13/2021 Immunizations Immunization Administration Dates Next Due Tdap Tetanus diptheria acell ular pertussis (Boostrix; Adacel) 7yo and older 05/20/2017 Surgical History Surgery Date Site/Laterality Comments OTHER SURGICAL HISTORY PROCEDURE: DENIES PREVIOUS SURGERY Medical History Medical History Date Comments Patient denies medical problems DX:Patient denies medical problems Family History Relation Name Status Comments Brother Alive Father Alive Liver disease, incarcerated right now Mother Alive Son 1 Alive 7 Son 2 Alive 5 Son 3 Alive 2 Social History Tobacco Use Types Packs/Day Years Used Date Smoking Tobacco: Every Day Cigarettes Smokeless Tobacco: Never Alcohol Use Standard Drinks/Week Comments No 0 (1 standard drink = 0.6 oz pur e alcohol) Comments Unknown Sex and Gender Information Value Date Recorded Sex Assigned at Not on file Legal Sex Female 3:39 PM EDT Gender Identity Not on file Sexual Orientation Not on file Obstetrics History Plan of Treatment Health Maintenance Due Date Last Done Comments Hepatitis A Vaccines (1 of 2 - Risk 2-dose series) 2010 Hepatitis B Vaccines (1 of 3 - 19+ 3-dose series) 2010 Pneumococcal Vaccine: Pediat rics (0 to 5 Years) and At-Risk Patients (6 to 49 Years) (1 of 2 - PCV) 2010 HPV Vaccines (1 - 3-dose SCD M series) 2018 Cervical Cancer Screening: P ap Smear 05/15/2018 05/15/2015 Hepatitis C Screening 04/07/2022 Social Influencers of Health Screening 04/07/2022 Depression Screening 06/15/2024 COVID-19 Vaccine (1 - 2023-2 5 season) 2025 Influenza Vaccine (#1) 2025 DTaP,Tdap,and Td Vaccines (2 - Td or Tdap) 05/20/2027 05/20/2017 RSV Immunization Adult Patie nts (1 - 1-dose 75+ series) 2066 HIV Screening Completed 12/28/2015 HIB Vaccines Aged Out No longer eligi ble based on patient's age to complete this topic IPV Vaccines Aged Out No longer eligi ble based on patient's age to complete this topic MMR Vaccines Aged Out No longer eligi ble based on patient's age to complete this topic Meningococcal ACWY Vaccine Aged Out N o longer eligible based on patient's age to complete this topic Meningococcal B Vaccine Aged Out No l onger eligible based on patient's age to complete this topic RSV Immunization Patients Un jonathan 20 months Aged Out No longer eligible b ased on patient's age to complete this topic Varicella Vaccines Aged Out No longer eligible based on patient's age to complete this topic Procedures Procedure Name Priority Date/Time Associated Diagnosis Comments HIV SCREENING Routine 12/28/2015 PAP SMEAR Routine 05/15/2015 from Last 3 Months or Most Recently Relevant to Health Maintenance Results * HIV Screening (12/28/2015) HIV Screening abstracted us Historical Provider HEALTH MAINTENANCE Final Result * Pap Smear (05/15/2015) HM Pap smear no interpretation , abstracted us Historical Provider HEALTH MAINTENANCE Final Result from Last 3 Months or Most Recently Relevant to Health Maintenance Insurance [facility] [place] [address] Care Teams [place] [facility] Director Relationship Specialty Start Date End Date Edward Sheppard MD [address] [place] [address] PCP - General 10/21/22
[2025-04-21 07:50] VITALS: BP 136/89; PULSE 74; RESP 16; TEMP 36.6; O2SAT 98
[2025-04-21 08:10] VITALS: BP 136/89; PULSE 74; RESP 16; TEMP 36.6; O2SAT 98
== END 2025-04-21 08:11 | disposition home or self-care (01) ==
PROVIDERS: Emergency Provider Emergency Medicine Emergency Medical Services; PCP Internal Medicine
DX: D50.9 Iron deficiency anemia, unspecified (principal); R51.9 Headache, unspecified; I10 Essential (primary) hypertension; R11.2 Nausea with vomiting, unspecified; Z79.899 Other long term (current) drug therapy
CPT/HCPCS: 36415; 80053; 84702; 85025; 96361; 96374; 96375; 99285; J1885; J2405